=== PATIENT | female | born 1955 | race Caucasian/White ===

== ENCOUNTER 2018-02-04 12:13 | Inpatient (IN) | payer BC, OTHER ==
--- NOTE | 2018-02-04 14:52 | PDOC ---
History of Present Illness - General Chief Complaint: Wound Stated Complaint: WOUND Time Seen by Provider: 02/04/18 14:10 - History of Present Illness Initial Comments: 02/04/18 14:47 62 F with h/o HTN, HLD, asthma presenting to ED with non-healing R hill wound. Pt states that she has had an ulcer in her R hill for several months. She has completed multiple rounds of PO abx but never with resolution of her wound. Pt recently had wound culture that grew MRSA, and pt was instructed to come to ER for IV abx. Pt denies any F/C. Reports only mild pain at ulcer site. Past History - Past Medical History Allergies/Adverse Reactions: Allergies Allergy/AdvReac Type Severity Reaction Status Date / Time codeine [Codeine] Allergy Unknown Verified 02/04/18 12:17 latex [Latex] Allergy Unknown Verified 02/04/18 12:17 silver sulfadiazine Allergy Unknown Verified 02/04/18 12:17 [From Silvadene] Sulfa (Sulfonamide Allergy Unknown Verified 02/04/18 12:17 Antibiotics) bacitracin [From Neosporin] Allergy Verified 02/04/18 12:17 bacitracin zinc Allergy Verified 02/04/18 12:17 [From Neosporin] benzalkonium chloride Allergy Verified 02/04/18 12:17 [From Neosporin] gramicidin D [From Neosporin] Allergy Verified 02/04/18 12:17 neomycin sulfate Allergy Verified 02/04/18 12:17 [From Neosporin] piperacillin Allergy Verified 02/04/18 12:17 polymyxin B [From Neosporin] Allergy Verified 02/04/18 12:17 polymyxin B sulfate Allergy Verified 02/04/18 12:17 [From Neosporin] POWDER Allergy Intermediate WHEEZING Uncoded 02/04/18 12:17 TRIDE Allergy Intermediate Uncoded 02/04/18 12:17 CODIENE Allergy Mild Itching Uncoded 02/04/18 12:17 LATEX Allergy Uncoded 02/04/18 12:17 SILVADENE Allergy Uncoded 02/04/18 12:17 SULFA Allergy Uncoded 02/04/18 12:17 FRAGRANCES AdvReac Intermediate WHEEZING Uncoded 02/04/18 12:17 Home Medications: Ambulatory Orders Aspirin [ASA] 81 mg PO DAILY 05/21/12 Docosahexanoic Acid/Epa [Fish Oil Softgel] 1 cap PO DAILY 05/21/12 Vitamin E 1 cap PO DAILY 05/21/12 Vitamin B Complex 1 each PO DAILY 02/04/13 Spironolactone [Aldactone] 25 mg PO DAILY 03/18/13 Cholecalciferol (Vitamin D3) [Vitamin D] 5,000 unit PO DAILY 07/02/13 Hydrocodone Bit/Acetaminophen [Vicodin 5-500mg Tablet -] 1 tab PO Q6H PRN Magnesium Amino Acid Chelate [Magnesium] 100 mg PO DAILY 07/02/13 Docusate Sodium [Colace -] 100 mg PO BID 07/03/13 Famotidine [Pepcid -] 20 mg PO DAILY 07/03/13 Montelukast Na [Singulair -] 10 mg PO HS #0 tablet 07/07/13 Pantoprazole Sodium [Protonix -] 40 mg PO DAILY #0 tablet.ec 07/07/13 Sennosides/Docusate Sodium [Pericolace -] 2 each PO HS #0 tablet 07/07/13 Lipitor 10 mg PO HS 12/17/17 Anemia: No Asthma: Yes Cancer: No Cardiac Disorders: Yes (hx of frequent palpitations) CVA: No COPD: Yes CHF: No Dementia: No Diabetes: No GI Disorders: Yes (IBS) Disorders: No HTN: Yes Hypercholesterolemia: Yes Liver Disease: No Seizures: No Thyroid Disease: No Other medical history: PVD - Surgical History Abdominal Surgery: Yes (HERNIA REPAIR,LAP BAND) Appendectomy: No Cardiac Surgery: No Cholecystectomy: Yes Lung Surgery: No Neurologic Surgery: No Orthopedic Surgery: Yes (RT.TOTAL HIP REPLACEMENT.) - Suicide/Smoking/Psychosocial Hx Smoking Status: Yes Smoking History: Former smoker Have you smoked in the past 12 months: No Number of Cigarettes Smoked Daily: 0 If you are a former smoker, when did you quit?: 1997 Information on smoking cessation initiated: No Hx Alcohol Use: No Drug/Substance Use Hx: No Substance Use Type: None Hx Substance Use Treatment: No Review of Systems - Review of Systems Comments:: 02/04/18 14:49 "GENERAL/CONSTITUTIONAL: No fever or chills. No weakness. HEAD, EYES, EARS, NOSE AND THROAT: No change in vision. No ear pain or discharge. No sore throat. CARDIOVASCULAR: No chest pain or shortness of breath. RESPIRATORY: No cough, wheezing, or hemoptysis. GASTROINTESTINAL: No nausea, vomiting, diarrhea or constipation. GENITOURINARY: No dysuria, frequency, or change in urination. MUSCULOSKELETAL: No joint or muscle swelling or pain. No neck or back pain. SKIN: + ulcer to R hill NEUROLOGIC: No headache, vertigo, loss of consciousness, or change in strength/ sensation. ENDOCRINE: No increased thirst. No abnormal weight change. HEMATOLOGIC/LYMPHATIC: No anemia, easy bleeding, or history of blood clots. ALLERGIC/IMMUNOLOGIC: No hives or skin allergy. *Physical Exam - Vital Signs Last Vital Signs Temp Pulse Resp BP Pulse Ox 97.6 F 96 H 18 159/107 100 02/04/18 12:17 02/04/18 12:17 02/04/18 12:17 02/04/18 12:17 02/04/18 12:17 - Physical Exam Comments: 02/04/18 14:51 "GENERAL: Awake, alert, and fully oriented, in no acute distress. HEAD: No signs of trauma EYES: PERRLA, EOMI, sclera anicteric, conjunctiva clear ENT: Auricles normal inspection, hearing grossly normal, nares patent, oropharynx clear without exudates. Moist mucosa NECK: Nontender, no stepoffs, Normal ROM, supple, no lymphadenopathy, JVD, or masses LUNGS: Breath sounds equal, clear to auscultation bilaterally. No wheezes, and no crackles HEART: Regular rate and rhythm, normal S1 and S2, no murmurs, rubs or gallops ABDOMEN: Soft, nontender, normoactive bowel sounds. No guarding, no rebound. No masses EXTREMITIES: + 2cm ulcer to R hill with serosanguinous drainage, dressing c/d/i , mild erythema NEUROLOGICAL: Cranial nerves II through XII intact. 5/5 strength and sensation in all extremities, Normal speech, normal gait, normal cerebellar function SKIN: Warm, Dry, normal turgor, no rashes or lesions noted. " ED Treatment Course - LABORATORY CBC & Chemistry Diagram: 02/04/18 16:12 02/04/18 16:12 Medical Decision Making - Medical Decision Making 02/04/18 14:52 62 F with non-healing R hill ulcer, now growing MRSA. - Labs, cultures - XR R hill to r/o osteo - Dr. Hernández following - IV abx - Admit 02/04/18 16:[address] Kimbrough. *DC/Admit/Observation/Transfer Diagnosis at time of Disposition: Non-healing ulcer - Discharge Dispostion Decision to Admit order: Yes - Referrals Referrals: Moises Kimbrough MD [Primary Care Provider] - - Patient Instructions - Post Discharge Activity - Attestations Physician Attestion: 02/04/18 16:45 I, Dr. Chan Aly MD, attest that this document has been prepared under my direction and personally reviewed by me in its entirety. I further attest, that it accurately reflects all work, treatment, procedures and medical decision -making performed by me.
[2018-02-04] MEDS ORDERED: VANCOMYCIN 1 GM PREMIX - 1 GM/200 ML BAG IVPB ONE (14:53)
[2018-02-04] MEDS ORDERED: VANCOMYCIN 1 GRAM (PRE-DOCKED) 1,000 MG/250 ML BAG IVPB ONE (16:14)
[2018-02-04 16:25] LABS: BASO % 0.6 % (0-2.0); EOS % 1.1 % (0-4.5); HEMATOCRIT 39.6 % (32.4-45.2); LYMPH % 23.5 % (8-40); MCH 28.2 pg (25.7-33.7); MCHC 32.9 g/dl (32.0-36.0); MEAN CELL VOLUME 85.8 fl (80-96); MEAN PLT VOLUME 8.6 fl (7.5-11.1); MONO % 7.2 % (3.8-10.2); NEUT % 67.6 % (42.8-82.8); PLATELET COUNT 187 K/MM3 (134-434); RBC 4.61 M/mm3 (3.60-5.2); RDW 16.2 % (11.6-15.6); WHITE BLOOD COUNT 5.7 K/mm3 (4.0-10.0)
[2018-02-04 17:01] LABS: ALBUMIN 3.9 g/dl (3.4-5.0); ANION GAP 7 (8-16); BILIRUBIN,TOTAL 0.8 mg/dL (0.2-1.0); BLOOD UREA NITROGEN 13 mg/dL (7-18); CALCIUM 9.3 mg/dL (8.5-10.1); CHLORIDE 107 mmol/L (98-107); CO2 28 mmol/L (21-32); CREATININE 0.7 mg/dL (0.55-1.02); GLUCOSE,RANDOM 89 mg/dL (74-106); SGPT/ALT 26 U/L (12-78); SODIUM 142 mmol/L (136-145)
[2018-02-04 17:03] LABS: ALK PHOS 119 U/L (45-117); POTASSIUM 4.5 mmol/L (3.5-5.1); SGOT/AST 23 U/L (15-37); TOT PROT 7.2 g/dl (6.4-8.2)
--- NOTE | 2018-02-04 17:44 | HP ---
Admitting History and Physical - Admission Chief Complaint: 62 y.o F was sent from [facility] for hospitalisation due to MRSA infected non-healing ulcer of the LE. History of Present Illness: Non-healing ulcer of the right hill. 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 No: AIDS, C-Diff, Herpes Zoster, HIV, STD's, Tuberculosis, VREF, Other Psych: No: Addictions, Anxiety, Bipolar, Depression, Panic, Psychosis, Schizophrenia, Other Musculoskeletal: No: Bursitis, Chronic low back pain, Hemiparesis, Hemiplegia, Osteoarthritis, Paraplegia, Other Rheumatology: No: Fibromyalgia, Gout, Lupus, Rheumatoid Arthritis, Sarcoidosis, Vasculitis, Other Endocrine: No: Kenneth's Disease, Seymour's Disease, Diabetes Insipidus, Diabetes Mellitus, Hyperparathyroidism, Hyperthyroidism, Hypothyroidism, Osteopenia, SIADH, Other - Past Surgical History Additional Past Surgical History: Cholecystectomy - Smoking History Smoking history: Former smoker Have you smoked in the past 12 months: No Aproximately how many cigarettes per day: 0 If you are a former smoker, when did you quit?: 1997 - Alcohol/Substance Use Hx Alcohol Use: No Home Medications - Allergies Allergies/Adverse Reactions: Allergies Allergy/AdvReac Type Severity Reaction Status Date / Time codeine [Codeine] Allergy Unknown Verified 02/04/18 12:17 latex [Latex] Allergy Unknown Verified 02/04/18 12:17 silver sulfadiazine Allergy Unknown Verified 02/04/18 12:17 [From Silvadene] Sulfa (Sulfonamide Allergy Unknown Verified 02/04/18 12:17 Antibiotics) bacitracin [From Neosporin] Allergy Verified 02/04/18 12:17 bacitracin zinc Allergy Verified 02/04/18 12:17 [From Neosporin] benzalkonium chloride Allergy Verified 02/04/18 12:17 [From Neosporin] gramicidin D [From Neosporin] Allergy Verified 02/04/18 12:17 neomycin sulfate Allergy Verified 02/04/18 12:17 [From Neosporin] piperacillin Allergy Verified 02/04/18 12:17 polymyxin B [From Neosporin] Allergy Verified 02/04/18 12:17 polymyxin B sulfate Allergy Verified 02/04/18 12:17 [From Neosporin] POWDER Allergy Intermediate WHEEZING Uncoded 02/04/18 12:17 TRIDE Allergy Intermediate Uncoded 02/04/18 12:17 CODIENE Allergy Mild Itching Uncoded 02/04/18 12:17 LATEX Allergy Uncoded 02/04/18 12:17 SILVADENE Allergy Uncoded 02/04/18 12:17 SULFA Allergy Uncoded 02/04/18 12:17 FRAGRANCES AdvReac Intermediate WHEEZING Uncoded 02/04/18 12:17 - Home Medications Home Medications: Ambulatory Orders Aspirin [ASA] 81 mg PO DAILY 05/21/12 Docosahexanoic Acid/Epa [Fish Oil Softgel] 1 cap PO DAILY 05/21/12 Vitamin E 1 cap PO DAILY 05/21/12 Vitamin B Complex 1 each PO DAILY 02/04/13 Spironolactone [Aldactone] 25 mg PO DAILY 03/18/13 Cholecalciferol (Vitamin D3) [Vitamin D] 5,000 unit PO DAILY 07/02/13 Hydrocodone Bit/Acetaminophen [Vicodin 5-500mg Tablet -] 1 tab PO Q6H PRN Magnesium Amino Acid Chelate [Magnesium] 100 mg PO DAILY 07/02/13 Docusate Sodium [Colace -] 100 mg PO BID 07/03/13 Famotidine [Pepcid -] 20 mg PO DAILY 07/03/13 Montelukast Na [Singulair -] 10 mg PO HS #0 tablet 07/07/13 Pantoprazole Sodium [Protonix -] 40 mg PO DAILY #0 tablet.ec 07/07/13 Sennosides/Docusate Sodium [Pericolace -] 2 each PO HS #0 tablet 07/07/13 Lipitor 10 mg PO HS 12/17/17 Family Disease History - Family Disease History Family History: Unremarkable Review of Systems - Review of Systems Constitutional: denies: Chills, Diaphoresis, Lethargy, Loss of Appetite Eyes: denies: Blind Spots, Blurred Vision, Photophobia HENT: denies: Difficult Swallowing, Ear Discharge, Hearing Loss, Nasal Congestion, Throat Pain, Toothache Neck: denies: Decreased ROM, Lumps, Pain on Movement, Tenderness Cardiovascular: denies: Chest Pain, Edema, Palpitations Respiratory: reports: SOB on Exertion. denies: Exercise Intolerance, Hemoptysis , Orthopnea, SOB, Wheezing Gastrointestinal: reports: Diarrhea. denies: Abdominal Pain, Bloating, Constipation Genitourinary: denies: Burning, Discharge Breasts: denies: Breast Implants, Discharge from Nipple, Lumps, Pain Musculoskeletal: denies: Back Pain, Crepitus, Joint Pain, Joint Swelling, Muscle Pain Integumentary: reports: Wound (Right ankle) Endocrine: reports: No Symptoms Hematology/Lymphatic: reports: No Symptoms Physical Examination Vital Signs: Vital Signs Temperature 97.6 F 02/04/18 12:17 Pulse Rate 96 H 02/04/18 12:17 Respiratory Rate 18 02/04/18 12:17 Blood Pressure 159/107 02/04/18 12:17 O2 Sat by Pulse Oximetry (%) 100 02/04/18 12:17 Constitutional: Yes: Well Nourished, No Distress, Anxious, Obese. No: Ashen, Diaphoresis, Mild Distress, Moderate Distress Eyes: Yes: Conjunctiva Clear, EOM Intact HENT: Yes: Atraumatic, Normocephalic. No: Rhinnorhea, Thrush Neck: Yes: Supple, Trachea Midline. No: Decreased ROM, Lymphadenopathy Cardiovascular: Yes: Regular Rate and Rhythm, S1, S2. No: Bradycardia, Tachycardia Respiratory: Yes: Regular, CTA Bilaterally. No: Poor Air Entry, Rales, SOB, Tachypnea, Wheezes Gastrointestinal: Yes: Normal Bowel Sounds, Soft, Abdomen, Obese. No: Ascites, Palpable Mass, Tenderness, Tenderness, Epigastrium, Vomiting ...Rectal Exam: Yes: Deferred Renal/: No: Anuria, Bladder Distention, CVA Tenderness - Left, CVA Tenderness - Right Breast(s): Yes: WNL Musculoskeletal: Yes: WNL. No: Back Pain, Joint Stiffness Extremities: No: Amputation, Calf Tenderness, Cold, Cyanosis, Shortened Edema: No Wound/Incision: Yes: Other (non-healing ulcer right ankle) Neurological: Yes: Alert, Oriented. No: Aphasia, Confusion Labs: CBC, BMP 02/04/18 16:12 02/04/18 16:12 Problem List - Problems (1) Venous stasis ulcer Assessment/Plan: IV Vanco as per Dr Manriquez. ID F/u Local wound care Code(s): I83.009 - VARICOSE VEINS OF UNSP LOWER EXTREMITY W ULCER OF UNSP SITE; L97.909 - NON-PRS CHRONIC ULC UNSP PRT OF UNSP LOW LEG W UNSP SEVERITY Qualifiers: Venous stasis ulcer site: ankle Laterality: right Non-pressure ulcer stage: with fat layer exposed (2) Venous insufficiency (chronic) (peripheral) Assessment/Plan: Dr Alvarenga f/u Code(s): I87.2 - VENOUS INSUFFICIENCY (CHRONIC) (PERIPHERAL) (3) Diarrhea Assessment/Plan: Stool for c.diff, o&P, Guaiac GI consult Zantac PO Code(s): R19.7 - DIARRHEA, UNSPECIFIED (4) CHF (congestive heart failure), NYHA class II Assessment/Plan: continue Spironolactone, Torsemide, KDUR Code(s): I50.9 - HEART FAILURE, UNSPECIFIED Qualifiers: Congestive heart failure type: diastolic
--- NOTE | 2018-02-04 20:42 | CON.ID ---
Consult Consult Specialty:: infectious diseases Reason for Consultation:: non healing wound of the leg rt - History of Present Illness Chief Complaint: non healing wound plus draiange History of Present Illness: 62 F with h/o HTN, HLD, asthma with non-healing R hill wound. Pt states that she has had an ulcer in her R hill for several months. She has completed multiple rounds of PO abx but never with resolution of her wound. 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 No: AIDS, C-Diff, Herpes Zoster, HIV, STD's, Tuberculosis, VREF, Other Psych: No: Addictions, Anxiety, Bipolar, Depression, Panic, Psychosis, Schizophrenia, Other Musculoskeletal: No: Bursitis, Chronic low back pain, Hemiparesis, Hemiplegia, Osteoarthritis, Paraplegia, Other Rheumatology: No: Fibromyalgia, Gout, Lupus, Rheumatoid Arthritis, Sarcoidosis, Vasculitis, Other Endocrine: No: [place]'s Disease, Seymour's Disease, Diabetes Insipidus, Diabetes Mellitus, Hyperparathyroidism, Hyperthyroidism, Hypothyroidism, Osteopenia, SIADH, Other - Alcohol/Substance Use Hx Alcohol Use: No - Smoking History Smoking history: Former smoker Have you smoked in the past 12 months: No Aproximately how many cigarettes per day: 0 If you are a former smoker, when did you quit?: 1997 Home Medications - Allergies Allergies/Adverse Reactions: Allergies Allergy/AdvReac Type Severity Reaction Status Date / Time codeine [Codeine] Allergy Unknown Verified 02/04/18 12:17 latex [Latex] Allergy Unknown Verified 02/04/18 12:17 silver sulfadiazine Allergy Unknown Verified 02/04/18 12:17 [From Silvadene] Sulfa (Sulfonamide Allergy Unknown Verified 02/04/18 12:17 Antibiotics) bacitracin [From Neosporin] Allergy Verified 02/04/18 12:17 bacitracin zinc Allergy Verified 02/04/18 12:17 [From Neosporin] benzalkonium chloride Allergy Verified 02/04/18 12:17 [From Neosporin] gramicidin D [From Neosporin] Allergy Verified 02/04/18 12:17 neomycin sulfate Allergy Verified 02/04/18 12:17 [From Neosporin] piperacillin Allergy Verified 02/04/18 12:17 polymyxin B [From Neosporin] Allergy Verified 02/04/18 12:17 polymyxin B sulfate Allergy Verified 02/04/18 12:17 [From Neosporin] POWDER Allergy Intermediate WHEEZING Uncoded 02/04/18 12:17 TRIDE Allergy Intermediate Uncoded 02/04/18 12:17 CODIENE Allergy Mild Itching Uncoded 02/04/18 12:17 LATEX Allergy Uncoded 02/04/18 12:17 SILVADENE Allergy Uncoded 02/04/18 12:17 SULFA Allergy Uncoded 02/04/18 12:17 FRAGRANCES AdvReac Intermediate WHEEZING Uncoded 02/04/18 12:17 - Home Medications Home Medications: Ambulatory Orders Aspirin [ASA] 81 mg PO DAILY 05/21/12 Docosahexanoic Acid/Epa [Fish Oil Softgel] 1 cap PO DAILY 05/21/12 Vitamin E 1 cap PO DAILY 05/21/12 Vitamin B Complex 1 each PO DAILY 02/04/13 Spironolactone [Aldactone] 25 mg PO DAILY 03/18/13 Cholecalciferol (Vitamin D3) [Vitamin D] 5,000 unit PO DAILY 07/02/13 Hydrocodone Bit/Acetaminophen [Vicodin 5-500mg Tablet -] 1 tab PO Q6H PRN Magnesium Amino Acid Chelate [Magnesium] 100 mg PO DAILY 07/02/13 Docusate Sodium [Colace -] 100 mg PO BID 07/03/13 Famotidine [Pepcid -] 20 mg PO DAILY 07/03/13 Montelukast Na [Singulair -] 10 mg PO HS #0 tablet 07/07/13 Pantoprazole Sodium [Protonix -] 40 mg PO DAILY #0 tablet.ec 07/07/13 Sennosides/Docusate Sodium [Pericolace -] 2 each PO HS #0 tablet 07/07/13 Lipitor 10 mg PO HS 12/17/17 Review of Systems - Review of Systems Constitutional: reports: No Symptoms Eyes: reports: No Symptoms HENT: reports: No Symptoms Neck: reports: No Symptoms Cardiovascular: reports: No Symptoms Respiratory: reports: No Symptoms Gastrointestinal: reports: No Symptoms Genitourinary: reports: No Symptoms Musculoskeletal: reports: Other Integumentary: reports: Erythema, Wound Neurological: reports: No Symptoms Endocrine: reports: No Symptoms Hematology/Lymphatic: reports: No Symptoms Psychiatric: reports: No Symptoms Physical Exam Vital Signs: Vital Signs Temperature 97.5 F L 02/04/18 16:45 Pulse Rate 82 02/04/18 16:45 Respiratory Rate 18 02/04/18 16:45 Blood Pressure 138/72 02/04/18 16:45 O2 Sat by Pulse Oximetry (%) 100 02/04/18 12:17 Constitutional: Yes: Well Nourished, Obese Eyes: Yes: Conjunctiva Clear HENT: Yes: Atraumatic Neck: Yes: Supple, Trachea Midline Cardiovascular: Yes: Regular Rate and Rhythm Respiratory: Yes: Regular, CTA Bilaterally Gastrointestinal: Yes: Normal Bowel Sounds, Soft Musculoskeletal: Yes: WNL Extremities: Yes: Erythema (rt hill), Other Integumentary: Yes: Other (ulcer on the rt hill) Wound/Incision: Yes: Dressing Removed, Other (wound looked at) Neurological: Yes: Alert, Oriented Psychiatric: Yes: Alert, Oriented Labs: CBC, BMP 02/04/18 16:12 02/04/18 16:12 Imaging - Results X-ray: Report Reviewed, Image Reviewed Ultrasound: Report Reviewed, Image Reviewed Assessment/Plan Problem List - Problems (1) Venous stasis ulcer Code(s): I83.009 - VARICOSE VEINS OF UNSP LOWER EXTREMITY W ULCER OF UNSP SITE; L97.909 - NON-PRS CHRONIC ULC UNSP PRT OF UNSP LOW LEG W UNSP SEVERITY Qualifiers: Venous stasis ulcer site: ankle Laterality: right Non-pressure ulcer stage: with fat layer exposed (2) Venous insufficiency (chronic) (peripheral) Code(s): I87.2 - VENOUS INSUFFICIENCY (CHRONIC) (PERIPHERAL) (3) Diarrhea Code(s): R19.7 - DIARRHEA, UNSPECIFIED (4) CHF (congestive heart failure), NYHA class II Code(s): I50.9 - HEART FAILURE, UNSPECIFIED Qualifiers: Congestive heart failure type: diastolic plan will start patient on vanco work up dirrhoea rest continue current mgmt and primary team
[2018-02-04] MEDS ORDERED: MONTELUKAST NA 10 MG TABLET ONE (21:17)
[2018-02-04] MEDS: ATORVASTATIN CA 10 MG TABLET (FP) PO SCH (21:27)
[2018-02-04] MEDS: MONTELUKAST NA 10 MG TABLET PO SCH (21:28)
[2018-02-04] MEDS: RANITIDINE HCL 150 MG TABLET (FP) PO SCH (21:28)
[2018-02-05 06:22] LABS: BASO % 0.4 % (0-2.0); EOS % 2.1 % (0-4.5); HEMATOCRIT 33.6 % (32.4-45.2); HEMOGLOBIN 11.6 GM/dL (10.7-15.3); LYMPH % 34.3 % (8-40); MCH 29.4 pg (25.7-33.7); MCHC 34.5 g/dl (32.0-36.0); MEAN CELL VOLUME 85.1 fl (80-96); MEAN PLT VOLUME 8.2 fl (7.5-11.1); MONO % 8.8 % (3.8-10.2); NEUT % 54.4 % (42.8-82.8); PLATELET COUNT 132 K/MM3 (134-434); RBC 3.94 M/mm3 (3.60-5.2); RDW 15.6 % (11.6-15.6); WHITE BLOOD COUNT 4.6 K/mm3 (4.0-10.0)
[2018-02-05 06:45] LABS: ALBUMIN 3.1 g/dl (3.4-5.0); ANION GAP 6 (8-16); BLOOD UREA NITROGEN 13 mg/dL (7-18); CALCIUM 8.5 mg/dL (8.5-10.1); CHLORIDE 108 mmol/L (98-107); CHOLESTEROL 129 mg/dL (50-200); CO2 28 mmol/L (21-32); CREATININE 0.6 mg/dL (0.55-1.02); GLUCOSE,RANDOM 94 mg/dL (74-106); PHOSPHOROUS 4.3 mg/dL (2.5-4.9); POTASSIUM 4.1 mmol/L (3.5-5.1); SGOT/AST 13 U/L (15-37); SGPT/ALT 19 U/L (12-78); SODIUM 142 mmol/L (136-145); TOT PROT 5.7 g/dl (6.4-8.2); TRIGLYCERIDES 123 mg/dL (35-160)
[2018-02-05 06:46] LABS: ALK PHOS 92 U/L (45-117); BILIRUBIN,TOTAL 0.7 mg/dL (0.2-1.0); HDL CHOLESTEROL 48 mg/dL (40-60)
[2018-02-05] MEDS ORDERED: PT OWN MED DRAWER 7, Y5N ONE ×2 (09:16→11:11)
[2018-02-05] MEDS: POTASSIUM CHLORIDE TABS 10 MEQ TABLET.ER (FP) PO SCH (09:27)
[2018-02-05] MEDS: CHOLECALCIFEROL (VITAMIN D3) 1,000 UNIT TABLET (FP) PO SCH (09:27)
[2018-02-05] MEDS: ASPIRIN 81 MG CHEWABLE TABLETS PO SCH (09:27)
[2018-02-05] MEDS: RANITIDINE HCL 150 MG TABLET (FP) PO SCH ×2 (09:28→21:26)
[2018-02-05] MEDS: SPIRONOLACTONE 25 MG TABLET (FP) PO SCH (09:28)
[2018-02-05] MEDS: LORATADINE 10 MG TABLET PO SCH (09:32)
[2018-02-05] MEDS ORDERED: PANTOPRAZOLE 40 MG TABLET (FP) PO SCH (10:00)
[2018-02-05] MEDS: TORSEMIDE 10 MG TABLET PO SCH (12:48)
--- NOTE | 2018-02-05 13:25 | PN ---
Progress Note, Physician Chief Complaint: C/o constipation History of Present Illness: Non-healing ulcer of the right hill. HTN HFpEP HLD Asthma Intermittent diarrhea with guaiac positive stool Allergic rhinitis Obesity - Current Medication List Current Medications: Active Medications Aspirin (Asa -) 81 mg PO DAILY [facility] Last Admin: 02/05/18 09:27 Dose: 81 mg Atorvastatin Calcium (Lipitor -) 10 mg PO HS [facility] Last Admin: 02/04/18 21:27 Dose: Not Given Cholecalciferol (Vitamin D3 -) 5,000 unit PO DAILY [facility] Last Admin: 02/05/18 09:27 Dose: 5,000 unit Loratadine (Claritin -) 10 mg PO DAILY [facility] Last Admin: 02/05/18 09:32 Dose: 10 mg Montelukast Sodium (Singulair -) 10 mg PO HS [facility] Last Admin: 02/04/18 21:28 Dose: Not Given Potassium Chloride (K-Dur -) 10 meq PO DAILY [facility] Last Admin: 02/05/18 09:27 Dose: 10 meq Ranitidine HCl (Zantac -) 150 mg PO BID [facility] Last Admin: 02/05/18 09:28 Dose: 150 mg Spironolactone (Aldactone -) 25 mg PO DAILY [facility] Last Admin: 02/05/18 09:28 Dose: 25 mg Torsemide (Demadex -) 10 mg PO DAILY [facility] Last Admin: 02/05/18 12:48 Dose: 10 mg - Objective Vital Signs: Vital Signs Temperature 97.6 F 02/05/18 10:00 Pulse Rate 63 02/05/18 10:00 Respiratory Rate 18 02/05/18 10:00 Blood Pressure 143/76 02/05/18 10:00 O2 Sat by Pulse Oximetry (%) 99 02/05/18 09:00 Constitutional: Yes: No Distress, Calm Eyes: Yes: Conjunctiva Clear, EOM Intact HENT: Yes: Atraumatic, Normocephalic Neck: Yes: Supple, Trachea Midline Cardiovascular: Yes: Regular Rate and Rhythm, S1, S2. No: Bradycardia, Tachycardia, Bruit, JVD, Murmur Respiratory: Yes: Regular, CTA Bilaterally. No: Cough Gastrointestinal: Yes: Normal Bowel Sounds, Soft, Abdomen, Obese. No: Ascites ...Rectal Exam: Yes: Deferred Genitourinary: No: Anuria, Bladder Distention Breast(s): Yes: WNL Musculoskeletal: No: Back Pain Extremities: No: Calf Tenderness Edema: LLE: 1+, RLE: 1+ Labs: CBC, BMP 02/05/18 05:45 02/05/18 05:45 Problem List - Problems (1) Venous stasis ulcer Assessment/Plan: MARTIN Wong as per Dr Manriquez. ID F/u Local wound care Code(s): I83.009 - VARICOSE VEINS OF UNSP LOWER EXTREMITY W ULCER OF UNSP SITE; L97.909 - NON-PRS CHRONIC ULC UNSP PRT OF UNSP LOW LEG W UNSP SEVERITY Qualifiers: Venous stasis ulcer site: ankle Laterality: right Non-pressure ulcer stage: with fat layer exposed (2) Venous insufficiency (chronic) (peripheral) Assessment/Plan: Dr Alvarenga f/u Code(s): I87.2 - VENOUS INSUFFICIENCY (CHRONIC) (PERIPHERAL) (3) CHF (congestive heart failure), NYHA class II Assessment/Plan: continue Spironolactone, Torsemide, KDUR Code(s): I50.9 - HEART FAILURE, UNSPECIFIED Qualifiers: Congestive heart failure type: diastolic
--- NOTE | 2018-02-05 13:36 | PN ---
Progress Note, Physician History of Present Illness: patient will be seen by gastro she has history in family of gi cancer no complaints from the wound point of view dirrhoea with occult blood positive - Current Medication List Current Medications: Active Medications Aspirin (Asa -) 81 mg PO DAILY [facility] Last Admin: 02/05/18 09:27 Dose: 81 mg Atorvastatin Calcium (Lipitor -) 10 mg PO HS [facility] Last Admin: 02/04/18 21:27 Dose: Not Given Cholecalciferol (Vitamin D3 -) 5,000 unit PO DAILY [facility] Last Admin: 02/05/18 09:27 Dose: 5,000 unit Docusate Sodium (Colace -) 100 mg PO BID [facility] Vancomycin HCl 1,500 mg/ (Dextrose) 250 mls @ 250 mls/hr IVPB Q24H [facility] PRN Reason: Protocol Loratadine (Claritin -) 10 mg PO DAILY [facility] Last Admin: 02/05/18 09:32 Dose: 10 mg Montelukast Sodium (Singulair -) 10 mg PO [facility] Last Admin: 02/04/18 21:28 Dose: Not Given Polyethylene Glycol (Miralax (For Daily Use) -) 17 gm PO DAILY [facility] Potassium Chloride (K-Dur -) 10 meq PO DAILY [facility] Last Admin: 02/05/18 09:27 Dose: 10 meq Ranitidine HCl (Zantac -) 150 mg PO BID [facility] Last Admin: 02/05/18 09:28 Dose: 150 mg Senna/Docusate Sodium (Pericolace -) 2 tablet PO [facility] Spironolactone (Aldactone -) 25 mg PO DAILY [facility] Last Admin: 02/05/18 09:28 Dose: 25 mg Torsemide (Demadex -) 10 mg PO DAILY [facility] Last Admin: 02/05/18 12:48 Dose: 10 mg - Objective Vital Signs: Vital Signs Temperature 97.6 F 02/05/18 10:00 Pulse Rate 63 02/05/18 10:00 Respiratory Rate 18 02/05/18 10:00 Blood Pressure 143/76 02/05/18 10:00 O2 Sat by Pulse Oximetry (%) 99 02/05/18 09:00 Constitutional: Yes: No Distress, Calm, Obese Cardiovascular: Yes: Regular Rate and Rhythm Respiratory: Yes: Regular, CTA Bilaterally Gastrointestinal: Yes: Normal Bowel Sounds, Soft, Other (dirrhoea) Musculoskeletal: Yes: WNL Extremities: Yes: Other Edema: LLE: 1+, RLE: 1+ Wound/Incision: Yes: Dressing Dry and Intact Neurological: Yes: Alert, Oriented Psychiatric: Yes: Alert, Oriented Labs: CBC, BMP 02/05/18 05:45 02/05/18 05:45 Assessment/Plan Problem List - Problems (1) Venous stasis ulcer Code(s): I83.009 - VARICOSE VEINS OF UNSP LOWER EXTREMITY W ULCER OF UNSP SITE; L97.909 - NON-PRS CHRONIC ULC UNSP PRT OF UNSP LOW LEG W UNSP SEVERITY Qualifiers: Venous stasis ulcer site: ankle Laterality: right Non-pressure ulcer stage: with fat layer exposed (2) Venous insufficiency (chronic) (peripheral) Code(s): I87.2 - VENOUS INSUFFICIENCY (CHRONIC) (PERIPHERAL) (3) Diarrhea Code(s): R19.7 - DIARRHEA, UNSPECIFIED (4) CHF (congestive heart failure), NYHA class II Code(s): I50.9 - HEART FAILURE, UNSPECIFIED Qualifiers: Congestive heart failure type: diastolic plan continue vanco await for gi to see the patient rest continue current mgmt dressing intact
[2018-02-05] MEDS: POLYETHYLENE GLYCOL 3350 119 GM BTL PO SCH (13:49)
[2018-02-05] MEDS: VANCOMYCIN 1,500 MG in DEXTROSE 5%-WATER - 500 ML IVPB SCH (14:45)
--- NOTE | 2018-02-05 17:59 | CON.GI ---
Consult Consult Specialty:: Gastroenterology Referred by:: Dr Kimbrough Reason for Consultation:: Diarrhea - History of Present Illness Chief Complaint: Abdominal gas with episodes of urgent diarrhea History of Present Illness: 62F is admitted for management of RLE MRSA. I am called to evaluate diarrhea. She reports that her bowel habits are such that she alternates between diarrhea and constipation chronically. She had hard fecaliths alternating with liquidy stool and always feels as though she is not emptying adequately. On diarrhea day she can have up to 5 BMs in a day. She denies any rectal bleeding or narrowed stools. She denies abdominal pain. She suffers with gaseous distension and acid reflux but denies vomiting. She has never had an EGD or a colonoscopy. Her mother of colon cancer. She also had bladder cancer. Zenaida had a lap band placed in 02/02 when she weighed 312 lbs. She also had a hiatal hernia repair at that time. She initially lost over 80 lbs but has regained most of it. 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 Cardio/Vascular: Yes: CHF (diastplic), HTN, Hyperlipdemia Pulmonary: Yes: Asthma, Sleep Apnea Gastrointestinal: Yes: Constipation, GERD, Other (Diarrhea) Hepatobiliary: Yes: Cholelithiasis (s/p GB surgery), Other (had liver biopsy during cholecystectomy at [facility] but not aware of result) Reproductive: Yes: Postmenopausal Infectious Disease: Yes: MRSA Musculoskeletal: Yes: Osteoarthritis, Other (left botello's cyst) Endocrine: Yes: Other (morbid obesity) - Past Surgical History Past Surgical History: Yes: Cholecystectomy (open with liver bx at [facility]), Hernia Repair (hiatal hernia repaired with gastric band), Joint Replacement (right THR) , Tonsillectomy, Tubal Ligation Additional Surgical History: LLE wound grafting - Alcohol/Substance Use Hx Alcohol Use: No History of Substance Use: reports: None - Smoking History Smoking history: Former smoker Have you smoked in the past 12 months: No Aproximately how many cigarettes per day: 0 If you are a former smoker, when did you quit?: 1997 - Social History Usual Living Arrangement: With Spouse ADL: Family Assistance 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 Place of : [facility] History of Recent Travel: No Home Medications - Allergies Allergies/Adverse Reactions: Allergies Allergy/AdvReac Type Severity Reaction Status Date / Time codeine [Codeine] Allergy Unknown Verified 02/04/18 12:17 latex [Latex] Allergy Unknown Verified 02/04/18 12:17 silver sulfadiazine Allergy Unknown Verified 02/04/18 12:17 [From Silvadene] Sulfa (Sulfonamide Allergy Unknown Verified 02/04/18 12:17 Antibiotics) bacitracin [From Neosporin] Allergy Verified 02/04/18 12:17 bacitracin zinc Allergy Verified 02/04/18 12:17 [From Neosporin] benzalkonium chloride Allergy Verified 02/04/18 12:17 [From Neosporin] gramicidin D [From Neosporin] Allergy Verified 02/04/18 12:17 neomycin sulfate Allergy Verified 02/04/18 12:17 [From Neosporin] piperacillin Allergy Verified 02/04/18 12:17 polymyxin B [From Neosporin] Allergy Verified 02/04/18 12:17 polymyxin B sulfate Allergy Verified 02/04/18 12:17 [From Neosporin] POWDER Allergy Intermediate WHEEZING Uncoded 02/04/18 12:17 TRIDE Allergy Intermediate Uncoded 02/04/18 12:17 CODIENE Allergy Mild Itching Uncoded 02/04/18 12:17 LATEX Allergy Uncoded 02/04/18 12:17 SILVADENE Allergy Uncoded 02/04/18 12:17 SULFA Allergy Uncoded 02/04/18 12:17 FRAGRANCES AdvReac Intermediate WHEEZING Uncoded 02/04/18 12:17 - Home Medications Home Medications: Ambulatory Orders Aspirin [ASA] 81 mg PO DAILY 05/21/12 Docosahexanoic Acid/Epa [Fish Oil Softgel] 1 cap PO DAILY 05/21/12 Vitamin E 1 cap PO DAILY 05/21/12 Vitamin B Complex 1 each PO DAILY 02/04/13 Spironolactone [Aldactone] 25 mg PO DAILY 03/18/13 Cholecalciferol (Vitamin D3) [Vitamin D] 5,000 unit PO DAILY 07/02/13 Hydrocodone Bit/Acetaminophen [Vicodin 5-500mg Tablet -] 1 tab PO Q6H PRN Magnesium Amino Acid Chelate [Magnesium] 100 mg PO DAILY 07/02/13 Docusate Sodium [Colace -] 100 mg PO BID 07/03/13 Famotidine [Pepcid -] 20 mg PO DAILY 07/03/13 Montelukast Na [Singulair -] 10 mg PO HS #0 tablet 07/07/13 Pantoprazole Sodium [Protonix -] 40 mg PO DAILY #0 tablet.ec 07/07/13 Sennosides/Docusate Sodium [Pericolace -] 2 each PO HS #0 tablet 07/07/13 Lipitor 10 mg PO HS 12/17/17 Family Disease History - Family Disease History Family Disease History: Diabetes: Father ( 79 dibetic complications), Mother (colon and bladder cancer), Heart Disease: Father, CA: Mother, Other: Sister (sarcoidosis) Review of Systems - Review of Systems Constitutional: reports: Lethargy, Malaise, Weakness Eyes: reports: No Symptoms HENT: reports: No Symptoms Neck: reports: No Symptoms Cardiovascular: reports: Palpitations, Shortness of Breath Respiratory: reports: Exercise Intolerance, SOB on Exertion Gastrointestinal: reports: Constipation, Diarrhea, Other (heartburn) Musculoskeletal: reports: Back Pain, Extremity Pain, Joint Pain Integumentary: reports: Wound (LLE) Physical Exam-GI Vital Signs: Vital Signs Temperature 98.4 F 02/05/18 14:06 Pulse Rate 65 02/05/18 14:06 Respiratory Rate 16 02/05/18 14:06 Blood Pressure 137/59 02/05/18 14:06 O2 Sat by Pulse Oximetry (%) 99 02/05/18 09:00 CBC,CMP WBC 4.6 K/mm3 (4.0-10.0) 02/05/18 05:45 RBC 3.94 M/mm3 (3.60-5.2) 02/05/18 05:45 Hgb 11.6 GM/dL (10.7-15.3) D 02/05/18 05:45 Hct 33.6 % (32.4-45.2) D 02/05/18 05:45 MCV 85.1 fl (80-96) 02/05/18 05:45 MCH 29.4 pg (25.7-33.7) 02/05/18 05:45 MCHC 34.5 g/dl (32.0-36.0) 02/05/18 05:45 RDW 15.6 % (11.6-15.6) 02/05/18 05:45 Plt Count 132 K/MM3 (134-434) L D 02/05/18 05:45 MPV 8.2 fl (7.5-11.1) 02/05/18 05:45 Neutrophils % 54.4 % (42.8-82.8) 02/05/18 05:45 Lymphocytes % 34.3 % (8-40) D 02/05/18 05:45 Monocytes % 8.8 % (3.8-10.2) 02/05/18 05:45 Eosinophils % 2.1 % (0-4.5) D 02/05/18 05:45 Basophils % 0.4 % (0-2.0) 02/05/18 05:45 Sodium 142 mmol/L (136-145) 02/05/18 05:45 Potassium 4.1 mmol/L (3.5-5.1) 02/05/18 05:45 Chloride 108 mmol/L (98-107) H 02/05/18 05:45 Carbon Dioxide 28 mmol/L (21-32) 02/05/18 05:45 Anion Gap 6 (8-16) L 02/05/18 05:45 BUN 13 mg/dL (7-18) 02/05/18 05:45 Creatinine 0.6 mg/dL (0.55-1.02) 02/05/18 05:45 Creat Clearance w eGFR > 60 (>60) 02/05/18 05:45 Random Glucose 94 mg/dL (74-106) 02/05/18 05:45 Calcium 8.5 mg/dL (8.5-10.1) 02/05/18 05:45 Phosphorus 4.3 mg/dL (2.5-4.9) 02/05/18 05:45 Magnesium 2.0 mg/dL (1.8-2.4) 02/05/18 05:45 Total Bilirubin 0.7 mg/dL (0.2-1.0) 02/05/18 05:45 AST 13 U/L (15-37) L 02/05/18 05:45 ALT 19 U/L (12-78) 02/05/18 05:45 Alkaline Phosphatase 92 U/L (45-117) 02/05/18 05:45 Total Protein 5.7 g/dl (6.4-8.2) L 02/05/18 05:45 Albumin 3.1 g/dl (3.4-5.0) L 02/05/18 05:45 Triglycerides 123 mg/dL (35-160) 02/05/18 05:45 Cholesterol 129 mg/dL (50-200) 02/05/18 05:45 Total LDL Cholesterol 65 mg/dL (5-100) 02/05/18 05:45 HDL Cholesterol 48 mg/dL (40-60) 02/05/18 05:45 Current Medications Generic Name Dose Route Start Last Admin Trade Name Freq PRN Reason Stop Dose Admin Aspirin 81 mg 02/05/18 10:00 02/05/18 09:27 Asa - PO 81 mg DAILY [facility] Administration Atorvastatin Calcium 10 mg 02/04/18 22:00 02/04/18 21:27 Lipitor - PO Not Given HS [facility] Cholecalciferol 5,000 unit 02/05/18 10:00 02/05/18 09:27 Vitamin D3 - PO 5,000 unit DAILY [facility] Administration Docusate Sodium 100 mg 02/05/18 22:00 Colace - PO BID [facility] Vancomycin HCl 1,500 mg/ 500 mls @ 250 mls/hr 02/05/18 13:30 02/05/18 14:45 Dextrose IVPB 250 mls/hr Q24H [facility] Administration Protocol Loratadine 10 mg 02/05/18 10:00 02/05/18 09:32 Claritin - PO 10 mg DAILY [facility] Administration Montelukast Sodium 10 mg 02/04/18 22:00 02/04/18 21:28 Singulair - PO Not Given HS [facility] Polyethylene Glycol 17 gm 02/05/18 13:30 02/05/18 13:49 Miralax (For Daily Use) - PO 17 gm DAILY [facility] Administration Potassium Chloride 10 meq 02/05/18 10:00 02/05/18 09:27 K-Dur - PO 10 meq DAILY [facility] Administration Ranitidine HCl 150 mg 02/04/18 22:00 02/05/18 09:28 Zantac - PO 150 mg BID [facility] Administration Senna/Docusate Sodium 2 tablet 02/05/18 22:00 Pericolace - PO HS [facility] Spironolactone 25 mg 02/05/18 10:00 02/05/18 09:28 Aldactone - PO 25 mg DAILY [facility] Administration Torsemide 10 mg 02/05/18 10:00 02/05/18 12:48 Demadex - PO 10 mg DAILY [facility] Administration Constitutional: Yes: Calm, Obese Eyes: Yes: Conjunctiva Clear HENT: Yes: Atraumatic Neck: Yes: Supple Cardiovascular: Yes: Regular Rate and Rhythm Respiratory: Yes: CTA Bilaterally Gastrointestinal Inspection: Yes: Scars (healed oblique RUQ, vertical short subumbilical and laparoscopic incisions) ...Auscultate: Yes: Normoactive Bowel Sounds ...Palpate: Yes: Soft, Other (nontender) ...Rectal Exam: Yes: Guaiac Positive (semisolid brown guaiac positive stool), Hemorrhoids/External Edema: Yes Edema: LLE: 2+ (bandaged ulcer), RLE: 2+ Neurological: Yes: Alert, Oriented Labs: CBC, BMP 02/05/18 05:45 02/05/18 05:45 Laboratory Tests 02/04/18 02/05/18 02/05/18 16:12 05:45 05:45 Hgb 13.0 D 11.6 D MCV 85.1 Plt Count 132 L D Albumin 3.1 L Problem List - Problems (1) Constipation by delayed colonic transit Assessment/Plan: I believe that Zenaida's main problem is constipation leading to fecal impaction an paradoxical diarrhea, I doubt that she has an infectious or ischemic colitis or IBD. The retained stool is causing her gas pain. Given her FH of colon cancer a partially obstructing colon cancer needs to be excluded. Given her occult bleeding and relative anemia for an asthmatic panendoscopy has been advised. I have discussed the cardiopulmonary risks of endoscopy associated with sleep apnea and obesity as well as the risks of perforation and hemorrhage that could lead for the need for surgery or blood transfusions. She has given an informed consent. She will need a 2 days prep which I will initiate. She is scheduled for an EGD and a colonoscopy on 02/08.Her bleeding may prove to be due to a stress gastritis, a lap band ulcer, GERD and AVMs among other possibilities. Code(s): K59.01 - SLOW TRANSIT CONSTIPATION (2) Family history of colon cancer in mother Code(s): Z80.0 - FAMILY HISTORY OF MALIGNANT NEOPLASM OF DIGESTIVE ORGANS (3) Occult GI bleeding Code(s): R19.5 - OTHER FECAL ABNORMALITIES (4) Anemia Code(s): D64.9 - ANEMIA, UNSPECIFIED
[2018-02-05] MEDS: SENNOSIDES/DOCUSATE COMBO (SENNA PLUS) TABLET (UD) PO SCH (21:26)
[2018-02-05] MEDS: ATORVASTATIN CA 10 MG TABLET (FP) PO SCH (21:26)
[2018-02-05] MEDS: MONTELUKAST NA 10 MG TABLET PO SCH (21:26)
[2018-02-05] MEDS ORDERED: DOCUSATE SODIUM 100 MG CAPSULE (FP) PO SCH (22:00)
[2018-02-06 06:36] LABS: INR 1.01 (0.82-1.09); PROTHROMBIN TIME (PATIENT) 11.4 SEC (9.7-13.0)
--- NOTE | 2018-02-06 07:49 | PN ---
Progress Note, Physician Chief Complaint: Dr Virk consult appreciated. Colonoscopy is scheduled for Sunday. Receiving Vanco IV History of Present Illness: Non-healing ulcer of the right hill. HTN HFpEP HLD Asthma Intermittent diarrhea with guaiac positive stool Allergic rhinitis Obesity, s/p Lap band PSH BTL Opnen elsy umbilical hernia repair Lap band bariatric surgery - Current Medication List Current Medications: Active Medications Aspirin (Asa -) 81 mg PO DAILY [facility] Last Admin: 02/05/18 09:27 Dose: 81 mg Atorvastatin Calcium (Lipitor -) 10 mg PO HS [facility] Last Admin: 02/05/18 21:26 Dose: 10 mg Bisacodyl (Dulcolax -) 20 mg PO DAILY [facility] Stop: 02/07/18 10:01 Cholecalciferol (Vitamin D3 -) 5,000 unit PO DAILY [facility] Last Admin: 02/05/18 09:27 Dose: 5,000 unit Vancomycin HCl 1,500 mg/ (Dextrose) 500 mls @ 250 mls/hr IVPB Q24H [facility] PRN Reason: Protocol Last Admin: 02/05/18 14:45 Dose: 250 mls/hr Loratadine (Claritin -) 10 mg PO DAILY [facility] Last Admin: 02/05/18 09:32 Dose: 10 mg Montelukast Sodium (Singulair -) 10 mg PO HS [facility] Last Admin: 02/05/18 21:26 Dose: 10 mg Polyethylene Glycol (Miralax (For Daily Use) -) 17 gm PO DAILY [facility] Last Admin: 02/05/18 13:49 Dose: 17 gm Potassium Chloride (K-Dur -) 10 meq PO DAILY [facility] Last Admin: 02/05/18 09:27 Dose: 10 meq Ranitidine HCl (Zantac -) 150 mg PO BID [facility] Last Admin: 02/05/18 21:26 Dose: 150 mg Senna/Docusate Sodium (Pericolace -) 2 tablet PO HS [facility] Last Admin: 02/05/18 21:26 Dose: 2 tablet Spironolactone (Aldactone -) 25 mg PO DAILY [facility] Last Admin: 02/05/18 09:28 Dose: 25 mg Torsemide (Demadex -) 10 mg PO DAILY [facility] Last Admin: 02/05/18 12:48 Dose: 10 mg - Objective Vital Signs: Vital Signs Temperature 97.1 F L 02/06/18 07:15 Pulse Rate 64 02/06/18 07:15 Respiratory Rate 18 02/06/18 07:15 Blood Pressure 112/58 02/06/18 07:15 O2 Sat by Pulse Oximetry (%) 99 02/05/18 21:00 Constitutional: Yes: No Distress, Anxious Eyes: Yes: Conjunctiva Clear, EOM Intact HENT: Yes: Atraumatic, Normocephalic. No: Drooling, Epistaxis, Hoarseness Neck: Yes: Supple, Trachea Midline. No: Decreased ROM, Lymphadenopathy Cardiovascular: Yes: Regular Rate and Rhythm, S1, S2. No: Bradycardia, Tachycardia, JVD Respiratory: Yes: Regular, CTA Bilaterally. No: Accessory Muscle Use Gastrointestinal: Yes: Normal Bowel Sounds, Soft, Abdomen, Obese, Other ( palpable Lap band Scar post open elsy, umbilical hernia). No: Ascites ...Rectal Exam: Yes: Deferred Genitourinary: No: Anuria, Bladder Distention, CVA Tenderness - Left, CVA Tenderness - Right Breast(s): Yes: WNL Musculoskeletal: Yes: WNL Extremities: No: Amputation, Calf Tenderness, Cold, Cyanosis Edema: Yes Edema: LLE: Trace, RLE: Trace Wound/Incision: Yes: Other (Right ankle ulcer-no discharge) Neurological: Yes: WNL ...Motor Strength: WNL Psychiatric: Yes: WNL Labs: CBC, BMP 02/05/18 05:45 02/05/18 05:45 INR, PTT INR 1.01 (0.82-1.09) 02/06/18 06:00 Problem List - Problems (1) Venous stasis ulcer Assessment/Plan: IV Vanco as per Dr Manriquez. ID F/u Local wound care Code(s): I83.009 - VARICOSE VEINS OF UNSP LOWER EXTREMITY W ULCER OF UNSP SITE; L97.909 - NON-PRS CHRONIC ULC UNSP PRT OF UNSP LOW LEG W UNSP SEVERITY Qualifiers: Venous stasis ulcer site: ankle Laterality: right Non-pressure ulcer stage: with fat layer exposed (2) Venous insufficiency (chronic) (peripheral) Assessment/Plan: Dr Alvarenga f/u Code(s): I87.2 - VENOUS INSUFFICIENCY (CHRONIC) (PERIPHERAL) (3) CHF (congestive heart failure), NYHA class II Assessment/Plan: continue Spironolactone, Torsemide, KDUR Code(s): I50.9 - HEART FAILURE, UNSPECIFIED Qualifiers: Congestive heart failure type: diastolic (4) Occult GI bleeding Assessment/Plan: Colonoscopy schedule by Dr Virk family history of colon CA Code(s): R19.5 - OTHER FECAL ABNORMALITIES
[2018-02-06] MEDS ORDERED: PEG3350/SOD SULF,BICARB,CL/KCL 4,000 ML SOLN.RECON PO ONE (09:00)
[2018-02-06] MEDS ORDERED: PT OWN MED DRAWER 7, Y5N ONE (09:00)
[2018-02-06] MEDS: SPIRONOLACTONE 25 MG TABLET (FP) PO SCH (09:26)
[2018-02-06] MEDS: LORATADINE 10 MG TABLET PO SCH (09:26)
[2018-02-06] MEDS: POTASSIUM CHLORIDE TABS 10 MEQ TABLET.ER (FP) PO SCH (09:26)
[2018-02-06] MEDS: CHOLECALCIFEROL (VITAMIN D3) 1,000 UNIT TABLET (FP) PO SCH (09:26)
[2018-02-06] MEDS: ASPIRIN 81 MG CHEWABLE TABLETS PO SCH (09:26)
[2018-02-06] MEDS: TORSEMIDE 10 MG TABLET PO SCH (09:27)
[2018-02-06] MEDS: RANITIDINE HCL 150 MG TABLET (FP) PO SCH ×2 (09:27→21:17)
[2018-02-06] MEDS: POLYETHYLENE GLYCOL 3350 119 GM BTL PO SCH (09:27)
--- NOTE | 2018-02-06 14:09 | PN ---
Progress Note (short form) - Note Progress Note: Patient with RLE chronic ulcer to lateral aspect. MRSA + Admittted so she can get IV ABX per ID. Wound care ordered: Topical Santyl/kerlix/elevate No surgical debridement needed. ABove discussed with Dr. Valdez and agrees
[2018-02-06] MEDS: VANCOMYCIN 1,500 MG in DEXTROSE 5%-WATER - 500 ML IVPB SCH (14:17)
--- NOTE | 2018-02-06 14:28 | PN ---
Progress Note, Physician History of Present Illness: dressing removed wound looked at surrounding erythema less wound margins looked at gi plans to scope on sunday - Current Medication List Current Medications: Active Medications Aspirin (Asa -) 81 mg PO DAILY [facility] Last Admin: 02/06/18 09:26 Dose: 81 mg Atorvastatin Calcium (Lipitor -) 10 mg PO [facility] Last Admin: 02/05/18 21:26 Dose: 10 mg Bisacodyl (Dulcolax -) 20 mg PO DAILY [facility] Stop: 02/07/18 10:01 Cholecalciferol (Vitamin D3 -) 5,000 unit PO DAILY [facility] Last Admin: 02/06/18 09:26 Dose: 5,000 unit Collagenase (Santyl -) 1 applic TP DAILY [facility] Vancomycin HCl 1,500 mg/ (Dextrose) 500 mls @ 250 mls/hr IVPB Q24H [facility] PRN Reason: Protocol Last Admin: 02/06/18 14:17 Dose: 250 mls/hr Loratadine (Claritin -) 10 mg PO DAILY [facility] Last Admin: 02/06/18 09:26 Dose: 10 mg Montelukast Sodium (Singulair -) 10 mg PO [facility] Last Admin: 02/05/18 21:26 Dose: 10 mg Polyethylene Glycol (Miralax (For Daily Use) -) 17 gm PO DAILY [facility] Last Admin: 02/06/18 09:27 Dose: 17 gm Potassium Chloride (K-Dur -) 10 meq PO DAILY [facility] Last Admin: 02/06/18 09:26 Dose: 10 meq Ranitidine HCl (Zantac -) 150 mg PO BID [facility] Last Admin: 02/06/18 09:27 Dose: 150 mg Senna/Docusate Sodium (Pericolace -) 2 tablet PO [facility] Last Admin: 02/05/18 21:26 Dose: 2 tablet Spironolactone (Aldactone -) 25 mg PO DAILY [facility] Last Admin: 02/06/18 09:26 Dose: 25 mg Torsemide (Demadex -) 10 mg PO DAILY [facility] Last Admin: 02/06/18 09:27 Dose: 10 mg - Objective Vital Signs: Vital Signs Temperature 98.0 F 02/06/18 13:39 Pulse Rate 84 02/06/18 13:39 Respiratory Rate 18 02/06/18 13:39 Blood Pressure 103/75 02/06/18 13:39 O2 Sat by Pulse Oximetry (%) 100 02/06/18 10:00 Constitutional: Yes: No Distress, Calm, Obese Cardiovascular: Yes: Regular Rate and Rhythm Respiratory: Yes: Regular, CTA Bilaterally Gastrointestinal: Yes: Normal Bowel Sounds, Soft Musculoskeletal: Yes: WNL Extremities: Yes: Other Edema: LLE: 1+, RLE: 1+ Integumentary: Yes: Erythema Wound/Incision: Yes: Dressing Removed, Other (wound looked at clean with no draiange) Neurological: Yes: Alert, Oriented Psychiatric: Yes: Alert Labs: CBC, BMP 02/05/18 05:45 02/05/18 05:45 INR, PTT INR 1.01 (0.82-1.09) 02/06/18 06:00 Assessment/Plan Problem List - Problems (1) Venous stasis ulcer Code(s): I83.009 - VARICOSE VEINS OF UNSP LOWER EXTREMITY W ULCER OF UNSP SITE; L97.909 - NON-PRS CHRONIC ULC UNSP PRT OF UNSP LOW LEG W UNSP SEVERITY Qualifiers: Venous stasis ulcer site: ankle Laterality: right Non-pressure ulcer stage: with fat layer exposed (2) Venous insufficiency (chronic) (peripheral) Code(s): I87.2 - VENOUS INSUFFICIENCY (CHRONIC) (PERIPHERAL) (3) Diarrhea Code(s): R19.7 - DIARRHEA, UNSPECIFIED (4) CHF (congestive heart failure), NYHA class II Code(s): I50.9 - HEART FAILURE, UNSPECIFIED Qualifiers: Congestive heart failure type: diastolic plan continue vanco patient for colonoscopy on sunday will d/w wound care--wound probably will need refreshing rest continue current mgmt
[2018-02-06] MEDS: COLLAGENASE CLOSTRIDIUM HIST. 30 GRAMS TUBE TP SCH (17:17)
[2018-02-06] MEDS: BISACODYL 5 MG TABLET.DR (FP) PO SCH (18:46)
[2018-02-06] MEDS: SENNOSIDES/DOCUSATE COMBO (SENNA PLUS) TABLET (UD) PO SCH (21:17)
[2018-02-06] MEDS: ATORVASTATIN CA 10 MG TABLET (FP) PO SCH (21:17)
[2018-02-06] MEDS: MONTELUKAST NA 10 MG TABLET PO SCH (21:17)
[2018-02-07 06:10] LABS: HBSAG SCREEN Negative (Negative); HEP B CORE AB, TOT Positive (Negative)
[2018-02-07 08:07] LABS: SERUM IRON SATURATION 21 % (15-55); TOTAL IRON BINDING CAPACITY 333 ug/dL (250-450); UIBC 262 ug/dL (131-425)
[2018-02-07] MEDS ORDERED: PEG3350/SOD SULF,BICARB,CL/KCL 4,000 ML SOLN.RECON PO ONE (09:00)
[2018-02-07] MEDS: BISACODYL 5 MG TABLET.DR (FP) PO SCH (10:20)
[2018-02-07] MEDS: CHOLECALCIFEROL (VITAMIN D3) 1,000 UNIT TABLET (FP) PO SCH (10:20)
[2018-02-07] MEDS: POTASSIUM CHLORIDE TABS 10 MEQ TABLET.ER (FP) PO SCH (10:20)
[2018-02-07] MEDS: SPIRONOLACTONE 25 MG TABLET (FP) PO SCH (10:21)
[2018-02-07] MEDS: RANITIDINE HCL 150 MG TABLET (FP) PO SCH ×2 (10:21→21:18)
[2018-02-07] MEDS: LORATADINE 10 MG TABLET PO SCH (10:21)
[2018-02-07] MEDS: ASPIRIN 81 MG CHEWABLE TABLETS PO SCH (10:21)
[2018-02-07] MEDS: POLYETHYLENE GLYCOL 3350 119 GM BTL PO SCH (10:21)
[2018-02-07] MEDS: TORSEMIDE 10 MG TABLET PO SCH (10:21)
[2018-02-07] MEDS: COLLAGENASE CLOSTRIDIUM HIST. 30 GRAMS TUBE TP SCH (10:22)
[2018-02-07 13:17] VITALS: BMI 49.6
[2018-02-07] MEDS: VANCOMYCIN 1,500 MG in DEXTROSE 5%-WATER - 500 ML IVPB SCH (13:32)
--- NOTE | 2018-02-07 13:42 | PN ---
Progress Note, Physician Chief Complaint: Ankle ulcer was seen by wound care and IDXochitl Wong IV treatment in progress. Preparation for colonoscopy-taking now. History of Present Illness: Non-healing ulcer of the right hill. HTN HFpEP HLD Asthma Intermittent diarrhea with guaiac positive stool Allergic rhinitis Obesity, s/p Lap band PSH BTL Opnen elsy umbilical hernia repair Lap band bariatric surgery - Current Medication List Current Medications: Active Medications Aspirin (Asa -) 81 mg PO DAILY [facility] Last Admin: 02/07/18 10:21 Dose: 81 mg Atorvastatin Calcium (Lipitor -) 10 mg PO HS [facility] Last Admin: 02/06/18 21:17 Dose: 10 mg Cholecalciferol (Vitamin D3 -) 5,000 unit PO DAILY [facility] Last Admin: 02/07/18 10:20 Dose: 5,000 unit Collagenase (Santyl -) 1 applic TP DAILY [facility] Last Admin: 02/07/18 10:22 Dose: 1 applic Vancomycin HCl 1,500 mg/ (Dextrose) 500 mls @ 250 mls/hr IVPB Q24H [facility] PRN Reason: Protocol Last Admin: 02/07/18 13:32 Dose: 250 mls/hr Loratadine (Claritin -) 10 mg PO DAILY [facility] Last Admin: 02/07/18 10:21 Dose: 10 mg Montelukast Sodium (Singulair -) 10 mg PO HS [facility] Last Admin: 02/06/18 21:17 Dose: 10 mg Polyethylene Glycol (Miralax (For Daily Use) -) 17 gm PO DAILY [facility] Last Admin: 02/07/18 10:21 Dose: 17 gm Potassium Chloride (K-Dur -) 10 meq PO DAILY [facility] Last Admin: 02/07/18 10:20 Dose: 10 meq Ranitidine HCl (Zantac -) 150 mg PO BID [facility] Last Admin: 02/07/18 10:21 Dose: 150 mg Senna/Docusate Sodium (Pericolace -) 2 tablet PO HS [facility] Last Admin: 02/06/18 21:17 Dose: 2 tablet Spironolactone (Aldactone -) 25 mg PO DAILY [facility] Last Admin: 02/07/18 10:21 Dose: 25 mg Torsemide (Demadex -) 10 mg PO DAILY [facility] Last Admin: 02/07/18 10:21 Dose: 10 mg - Objective Vital Signs: Vital Signs Temperature 97.6 F 02/07/18 10:00 Pulse Rate 73 02/07/18 10:00 Respiratory Rate 18 02/07/18 10:00 Blood Pressure 107/60 02/07/18 10:00 O2 Sat by Pulse Oximetry (%) 97 02/07/18 09:00 Constitutional: Yes: No Distress, Calm. No: Anxious, [place]hen Eyes: Yes: Conjunctiva Clear, EOM Intact HENT: Yes: Atraumatic, Normocephalic Neck: Yes: Supple, Trachea Midline Cardiovascular: Yes: Regular Rate and Rhythm. No: Bradycardia, Tachycardia Respiratory: Yes: Regular, CTA Bilaterally Gastrointestinal: Yes: Normal Bowel Sounds, Soft, Abdomen, Obese. No: Ascites, Palpable Mass, Tenderness ...Rectal Exam: Yes: Deferred Genitourinary: No: Anuria, Bladder Distention, CVA Tenderness - Left, CVA Tenderness - Right Breast(s): Yes: WNL Extremities: Yes: Other (right ankle ulcer). No: Calf Tenderness, Cold, Cyanosis Edema: Yes Edema: LLE: Trace, RLE: Trace Wound/Incision: Yes: Clean/Dry Neurological: Yes: WNL ...Motor Strength: WNL Psychiatric: Yes: WNL Labs: CBC, BMP 02/05/18 05:45 02/05/18 05:45 INR, PTT INR 1.01 (0.82-1.09) 02/06/18 06:00 Problem List - Problems (1) Venous stasis ulcer Assessment/Plan: IV Vanco as per Dr Manriquez. ID F/u Local wound care-[facility] Code(s): I83.009 - VARICOSE VEINS OF UNSP LOWER EXTREMITY W ULCER OF UNSP SITE; L97.909 - NON-PRS CHRONIC ULC UNSP PRT OF UNSP LOW LEG W UNSP SEVERITY Qualifiers: Venous stasis ulcer site: ankle Laterality: right Non-pressure ulcer stage: with fat layer exposed (2) Venous insufficiency (chronic) (peripheral) Assessment/Plan: Dr Alvarenga f/u Code(s): I87.2 - VENOUS INSUFFICIENCY (CHRONIC) (PERIPHERAL) (3) CHF (congestive heart failure), NYHA class II Assessment/Plan: continue Spironolactone, Torsemide, KDUR Code(s): I50.9 - HEART FAILURE, UNSPECIFIED Qualifiers: Congestive heart failure type: diastolic
[2018-02-07 14:14] LABS: TRANSGLUTAMINASE IGA < 2 U/mL (0-3); TRANSGLUTAMINASE IGG < 2 U/mL (0-5)
--- NOTE | 2018-02-07 15:56 | PN ---
Progress Note, Physician History of Present Illness: patient stable no new issues for colonscopy tomorrow - Current Medication List Current Medications: Active Medications Aspirin (Asa -) 81 mg PO DAILY [facility] Last Admin: 02/07/18 10:21 Dose: 81 mg Atorvastatin Calcium (Lipitor -) 10 mg PO HS [facility] Last Admin: 02/06/18 21:17 Dose: 10 mg Cholecalciferol (Vitamin D3 -) 5,000 unit PO DAILY [facility] Last Admin: 02/07/18 10:20 Dose: 5,000 unit Collagenase (Santyl -) 1 applic TP DAILY [facility] Last Admin: 02/07/18 10:22 Dose: 1 applic Vancomycin HCl 1,500 mg/ (Dextrose) 500 mls @ 250 mls/hr IVPB Q24H [facility] PRN Reason: Protocol Last Admin: 02/07/18 13:32 Dose: 250 mls/hr Loratadine (Claritin -) 10 mg PO DAILY [facility] Last Admin: 02/07/18 10:21 Dose: 10 mg Montelukast Sodium (Singulair -) 10 mg PO [facility] Last Admin: 02/06/18 21:17 Dose: 10 mg Polyethylene Glycol (Miralax (For Daily Use) -) 17 gm PO DAILY [facility] Last Admin: 02/07/18 10:21 Dose: 17 gm Potassium Chloride (K-Dur -) 10 meq PO DAILY [facility] Last Admin: 02/07/18 10:20 Dose: 10 meq Ranitidine HCl (Zantac -) 150 mg PO BID [facility] Last Admin: 02/07/18 10:21 Dose: 150 mg Senna/Docusate Sodium (Pericolace -) 2 tablet PO [facility] Last Admin: 02/06/18 21:17 Dose: 2 tablet Spironolactone (Aldactone -) 25 mg PO DAILY [facility] Last Admin: 02/07/18 10:21 Dose: 25 mg Torsemide (Demadex -) 10 mg PO DAILY [facility] Last Admin: 02/07/18 10:21 Dose: 10 mg - Objective Vital Signs: Vital Signs Temperature 97.4 F L 02/07/18 14:23 Pulse Rate 93 H 02/07/18 14:23 Respiratory Rate 16 02/07/18 14:23 Blood Pressure 145/69 02/07/18 14:23 O2 Sat by Pulse Oximetry (%) 97 02/07/18 09:00 Constitutional: Yes: No Distress, Calm, Obese Cardiovascular: Yes: Regular Rate and Rhythm Respiratory: Yes: Regular, CTA Bilaterally Gastrointestinal: Yes: Normal Bowel Sounds, Soft Musculoskeletal: Yes: WNL Extremities: Yes: Other Integumentary: Yes: Erythema Wound/Incision: Yes: Dressing Dry and Intact Neurological: Yes: Alert, Oriented Psychiatric: Yes: Alert, Oriented Labs: CBC, BMP 02/05/18 05:45 02/05/18 05:45 INR, PTT INR 1.01 (0.82-1.09) 02/06/18 06:00 Assessment/Plan Problem List - Problems (1) Venous stasis ulcer Code(s): I83.009 - VARICOSE VEINS OF UNSP LOWER EXTREMITY W ULCER OF UNSP SITE; L97.909 - NON-PRS CHRONIC ULC UNSP PRT OF UNSP LOW LEG W UNSP SEVERITY Qualifiers: Venous stasis ulcer site: ankle Laterality: right Non-pressure ulcer stage: with fat layer exposed (2) Venous insufficiency (chronic) (peripheral) Code(s): I87.2 - VENOUS INSUFFICIENCY (CHRONIC) (PERIPHERAL) (3) Diarrhea Code(s): R19.7 - DIARRHEA, UNSPECIFIED (4) CHF (congestive heart failure), NYHA class II Code(s): I50.9 - HEART FAILURE, UNSPECIFIED Qualifiers: Congestive heart failure type: diastolic plan continue vanco patient for colonoscopy on sunday will d/w wound care--wound probably will need refreshing rest continue current mgmt will check vanco trough
[2018-02-07] MEDS: MONTELUKAST NA 10 MG TABLET PO SCH (21:18)
[2018-02-07] MEDS: ATORVASTATIN CA 10 MG TABLET (FP) PO SCH (21:18)
[2018-02-07] MEDS: SENNOSIDES/DOCUSATE COMBO (SENNA PLUS) TABLET (UD) PO SCH (21:19)
--- NOTE | 2018-02-08 09:03 | PN ---
Progress Note, Physician Chief Complaint: Receiving IV Vanco. Awaiting colonoscopy today History of Present Illness: Non-healing ulcer of the right hill. HTN HFpEP HLD Asthma Intermittent diarrhea with guaiac positive stool Allergic rhinitis Obesity, s/p Lap band PSH BTL Opnen elsy umbilical hernia repair Lap band bariatric surgery - Current Medication List Current Medications: Active Medications Aspirin (Asa -) 81 mg PO DAILY [facility] Last Admin: 02/07/18 10:21 Dose: 81 mg Atorvastatin Calcium (Lipitor -) 10 mg PO HS [facility] Last Admin: 02/07/18 21:18 Dose: 10 mg Cholecalciferol (Vitamin D3 -) 5,000 unit PO DAILY [facility] Last Admin: 02/07/18 10:20 Dose: 5,000 unit Collagenase (Santyl -) 1 applic TP DAILY [facility] Last Admin: 02/07/18 10:22 Dose: 1 applic Vancomycin HCl 1,500 mg/ (Dextrose) 500 mls @ 250 mls/hr IVPB Q24H [facility] PRN Reason: Protocol Last Admin: 02/07/18 13:32 Dose: 250 mls/hr Loratadine (Claritin -) 10 mg PO DAILY [facility] Last Admin: 02/07/18 10:21 Dose: 10 mg Montelukast Sodium (Singulair -) 10 mg PO HS [facility] Last Admin: 02/07/18 21:18 Dose: 10 mg Polyethylene Glycol (Miralax (For Daily Use) -) 17 gm PO DAILY [facility] Last Admin: 02/07/18 10:21 Dose: 17 gm Potassium Chloride (K-Dur -) 10 meq PO DAILY [facility] Last Admin: 02/07/18 10:20 Dose: 10 meq Ranitidine HCl (Zantac -) 150 mg PO BID [facility] Last Admin: 02/07/18 21:18 Dose: 150 mg Senna/Docusate Sodium (Pericolace -) 2 tablet PO HS [facility] Last Admin: 02/07/18 21:19 Dose: Not Given Spironolactone (Aldactone -) 25 mg PO DAILY [facility] Last Admin: 02/07/18 10:21 Dose: 25 mg Torsemide (Demadex -) 10 mg PO DAILY [facility] Last Admin: 02/07/18 10:21 Dose: 10 mg - Objective Vital Signs: Vital Signs Temperature 97.6 F 02/08/18 06:00 Pulse Rate 89 02/08/18 06:00 Respiratory Rate 18 05/18/18 06:00 Blood Pressure 139/73 02/08/18 06:00 O2 Sat by Pulse Oximetry (%) 95 02/07/18 21:00 Constitutional: Yes: No Distress, Anxious Eyes: Yes: Conjunctiva Clear, EOM Intact HENT: Yes: Atraumatic, Normocephalic. No: Drooling Neck: Yes: Supple, Trachea Midline. No: Decreased ROM, Lymphadenopathy Cardiovascular: Yes: Regular Rate and Rhythm. No: Bradycardia, Tachycardia Respiratory: Yes: Regular, CTA Bilaterally Gastrointestinal: Yes: Normal Bowel Sounds, Soft, Abdomen, Obese ...Rectal Exam: Yes: Deferred Genitourinary: No: Anuria, Bladder Distention, CVA Tenderness - Left, CVA Tenderness - Right Breast(s): Yes: WNL Extremities: No: Calf Tenderness, Cold, Cyanosis Edema: Yes Edema: LLE: 1+, RLE: 1+ Peripheral Pulses WNL: No Integumentary: Yes: Venous Stasis Changes Wound/Incision: Yes: Other (Ankle ulcer). No: Draining Neurological: Yes: WNL ...Motor Strength: WNL Psychiatric: Yes: WNL Labs: CBC, BMP 02/05/18 05:45 02/05/18 05:45 INR, PTT INR 1.01 (0.82-1.09) 02/06/18 06:00 Problem List - Problems (1) Venous stasis ulcer Assessment/Plan: IV Vanco as per Dr Manriquez. ID F/u Local wound care-[facility] Code(s): I83.009 - VARICOSE VEINS OF UNSP LOWER EXTREMITY W ULCER OF UNSP SITE; L97.909 - NON-PRS CHRONIC ULC UNSP PRT OF UNSP LOW LEG W UNSP SEVERITY Qualifiers: Venous stasis ulcer site: ankle Laterality: right Non-pressure ulcer stage: with fat layer exposed (2) Venous insufficiency (chronic) (peripheral) Assessment/Plan: Dr Alvarenga f/u Code(s): I87.2 - VENOUS INSUFFICIENCY (CHRONIC) (PERIPHERAL) (3) CHF (congestive heart failure), NYHA class II Assessment/Plan: continue Spironolactone, Torsemide, KDUR Code(s): I50.9 - HEART FAILURE, UNSPECIFIED Qualifiers: Congestive heart failure type: diastolic
[2018-02-08] MEDS ORDERED: LIDOCAINE VISCOUS 2% ORAL/TOP 20 ML UNIT-DOSE CUP ONE (09:04)
[2018-02-08 10:17] LABS: ALPHA 2 MACROGLOBULINS,QN 145 mg/dL (110-276); ALT(SGPT)P5P 19 IU/L (0-40); CHOLESTEROL TOTAL 143 mg/dL (100-199); FIBROSIS SCORE 0.11 (0.00-0.21); GGT= 19 IU/L (0-60); GLUCOSE SERUM 97 mg/dL (65-99); HEIGHT 65 in (.); WEIGHT- 298 LBS (.)
[2018-02-08] MEDS: ASPIRIN 81 MG CHEWABLE TABLETS PO SCH (11:34)
[2018-02-08] MEDS: POTASSIUM CHLORIDE TABS 10 MEQ TABLET.ER (FP) PO SCH (11:34)
[2018-02-08] MEDS: POLYETHYLENE GLYCOL 3350 119 GM BTL PO SCH (11:34)
[2018-02-08] MEDS: SPIRONOLACTONE 25 MG TABLET (FP) PO SCH (11:34)
[2018-02-08] MEDS: TORSEMIDE 10 MG TABLET PO SCH (11:34)
[2018-02-08] MEDS: LORATADINE 10 MG TABLET PO SCH (11:34)
[2018-02-08] MEDS: RANITIDINE HCL 150 MG TABLET (FP) PO SCH (11:35)
[2018-02-08] MEDS: CHOLECALCIFEROL (VITAMIN D3) 1,000 UNIT TABLET (FP) PO SCH (11:35)
[2018-02-08] MEDS: COLLAGENASE CLOSTRIDIUM HIST. 30 GRAMS TUBE TP SCH (11:35)
[2018-02-08] MEDS ORDERED: PT OWN MED DRAWER 7, Y5N ONE (13:51)
[2018-02-08] MEDS: VANCOMYCIN 1,500 MG in DEXTROSE 5%-WATER - 500 ML IVPB SCH (14:39)
--- NOTE | 2018-02-08 14:42 | PN ---
Progress Note, Physician History of Present Illness: doing well no issues patient had colonoscopy done today comfortable - Current Medication List Current Medications: Active Medications Aspirin (Asa -) 81 mg PO DAILY [facility] Last Admin: 02/08/18 11:34 Dose: Not Given Atorvastatin Calcium (Lipitor -) 10 mg PO HS [facility] Last Admin: 02/07/18 21:18 Dose: 10 mg Cholecalciferol (Vitamin D3 -) 5,000 unit PO DAILY [facility] Last Admin: 02/08/18 11:35 Dose: Not Given Collagenase (Santyl -) 1 applic TP DAILY [facility] Last Admin: 02/08/18 11:35 Dose: Not Given Vancomycin HCl 1,500 mg/ (Dextrose) 500 mls @ 250 mls/hr IVPB Q24H [facility] PRN Reason: Protocol Last Admin: 02/08/18 14:39 Dose: 250 mls/hr Loratadine (Claritin -) 10 mg PO DAILY [facility] Last Admin: 02/08/18 11:34 Dose: Not Given Montelukast Sodium (Singulair -) 10 mg PO [facility] Last Admin: 02/07/18 21:18 Dose: 10 mg Polyethylene Glycol (Miralax (For Daily Use) -) 17 gm PO DAILY [facility] Last Admin: 02/08/18 11:34 Dose: Not Given Potassium Chloride (K-Dur -) 10 meq PO DAILY [facility] Last Admin: 02/08/18 11:34 Dose: Not Given Ranitidine HCl (Zantac -) 150 mg PO BID [facility] Last Admin: 02/08/18 11:35 Dose: Not Given Senna/Docusate Sodium (Pericolace -) 2 tablet PO [facility] Last Admin: 02/07/18 21:19 Dose: Not Given Spironolactone (Aldactone -) 25 mg PO DAILY [facility] Last Admin: 02/08/18 11:34 Dose: Not Given Torsemide (Demadex -) 10 mg PO DAILY [facility] Last Admin: 02/08/18 11:34 Dose: Not Given - Objective Vital Signs: Vital Signs Temperature 97.9 F 02/08/18 10:33 Pulse Rate 64 02/08/18 10:33 Respiratory Rate 18 02/08/18 10:33 Blood Pressure 118/62 02/08/18 10:33 O2 Sat by Pulse Oximetry (%) 100 02/08/18 10:33 Constitutional: Yes: No Distress, Calm, Obese Cardiovascular: Yes: Regular Rate and Rhythm Respiratory: Yes: Regular, CTA Bilaterally Gastrointestinal: Yes: Normal Bowel Sounds, Soft Musculoskeletal: Yes: WNL Extremities: Yes: Other Wound/Incision: Yes: Dressing Dry and Intact Neurological: Yes: Alert, Oriented Psychiatric: Yes: Alert, Oriented Labs: CBC, BMP 02/05/18 05:45 02/05/18 05:45 INR, PTT INR 1.01 (0.82-1.09) 02/06/18 06:00 Assessment/Plan Problem List - Problems (1) Venous stasis ulcer Code(s): I83.009 - VARICOSE VEINS OF UNSP LOWER EXTREMITY W ULCER OF UNSP SITE; L97.909 - NON-PRS CHRONIC ULC UNSP PRT OF UNSP LOW LEG W UNSP SEVERITY Qualifiers: Venous stasis ulcer site: ankle Laterality: right Non-pressure ulcer stage: with fat layer exposed (2) Venous insufficiency (chronic) (peripheral) Code(s): I87.2 - VENOUS INSUFFICIENCY (CHRONIC) (PERIPHERAL) (3) Diarrhea Code(s): R19.7 - DIARRHEA, UNSPECIFIED (4) CHF (congestive heart failure), NYHA class II Code(s): I50.9 - HEART FAILURE, UNSPECIFIED Qualifiers: Congestive heart failure type: diastolic plan continue vanco wound care await for vanco levels rest continue current mgmt await for colonoscopy findings
--- NOTE | 2018-02-08 15:42 | PN ---
Progress Note (short form) - Note Progress Note: GI Procedures Note: Please see EGD and colonoscopy reports. Duodenitis appears to be the source of occult bleeding. Colon polyps were removed. No colitis was seen. No GI objections to discharge. Problem List - Problems (1) Constipation by delayed colonic transit Code(s): K59.01 - SLOW TRANSIT CONSTIPATION (2) Family history of colon cancer in mother Code(s): Z80.0 - FAMILY HISTORY OF MALIGNANT NEOPLASM OF DIGESTIVE ORGANS (3) Occult GI bleeding Code(s): R19.5 - OTHER FECAL ABNORMALITIES (4) Anemia Code(s): D64.9 - ANEMIA, UNSPECIFIED
[2018-02-08] MEDS: SENNOSIDES/DOCUSATE COMBO (SENNA PLUS) TABLET (UD) PO SCH (22:04)
[2018-02-08] MEDS: MONTELUKAST NA 10 MG TABLET PO SCH (22:04)
[2018-02-08] MEDS: ATORVASTATIN CA 10 MG TABLET (FP) PO SCH (22:04)
[2018-02-09] MEDS ORDERED: PT OWN MED DRAWER 7, Y5N ONE (09:38)
[2018-02-09] MEDS: CHOLECALCIFEROL (VITAMIN D3) 1,000 UNIT TABLET (FP) PO SCH (09:41)
[2018-02-09] MEDS: POTASSIUM CHLORIDE TABS 10 MEQ TABLET.ER (FP) PO SCH (09:41)
[2018-02-09] MEDS: SPIRONOLACTONE 25 MG TABLET (FP) PO SCH (09:42)
[2018-02-09] MEDS: PANTOPRAZOLE 40 MG TABLET (FP) PO SCH (09:42)
[2018-02-09] MEDS: TORSEMIDE 10 MG TABLET PO SCH (09:42)
[2018-02-09] MEDS: LORATADINE 10 MG TABLET PO SCH (09:42)
[2018-02-09] MEDS: ASPIRIN 81 MG CHEWABLE TABLETS PO SCH (09:42)
[2018-02-09] MEDS: POLYETHYLENE GLYCOL 3350 119 GM BTL PO SCH (09:43)
[2018-02-09] MEDS: COLLAGENASE CLOSTRIDIUM HIST. 30 GRAMS TUBE TP SCH (09:48)
[2018-02-09] MEDS: VANCOMYCIN 1,500 MG in DEXTROSE 5%-WATER - 500 ML IVPB SCH (12:42)
--- NOTE | 2018-02-09 15:40 | PN ---
Progress Note, Physician History of Present Illness: improving wound looking better - Current Medication List Current Medications: Active Medications Aspirin (Asa -) 81 mg PO DAILY [facility] Last Admin: 02/09/18 09:42 Dose: 81 mg Atorvastatin Calcium (Lipitor -) 10 mg PO HS [facility] Last Admin: 02/08/18 22:04 Dose: 10 mg Cholecalciferol (Vitamin D3 -) 5,000 unit PO DAILY [facility] Last Admin: 02/09/18 09:41 Dose: 5,000 unit Collagenase (Santyl -) 1 applic TP DAILY [facility] Last Admin: 02/09/18 09:48 Dose: 1 applic Vancomycin HCl 1,500 mg/ (Dextrose) 500 mls @ 250 mls/hr IVPB Q24H [facility] PRN Reason: Protocol Last Admin: 02/09/18 12:42 Dose: 250 mls/hr Loratadine (Claritin -) 10 mg PO DAILY [facility] Last Admin: 02/09/18 09:42 Dose: 10 mg Montelukast Sodium (Singulair -) 10 mg PO [facility] Last Admin: 02/08/18 22:04 Dose: 10 mg Pantoprazole Sodium (Protonix -) 40 mg PO DAILY [facility] Last Admin: 02/09/18 09:42 Dose: 40 mg Polyethylene Glycol (Miralax (For Daily Use) -) 17 gm PO DAILY [facility] Last Admin: 02/09/18 09:43 Dose: 17 gm Potassium Chloride (K-Dur -) 10 meq PO DAILY [facility] Last Admin: 02/09/18 09:41 Dose: 10 meq Senna/Docusate Sodium (Pericolace -) 2 tablet PO [facility] Last Admin: 02/08/18 22:04 Dose: 2 tablet Spironolactone (Aldactone -) 25 mg PO DAILY [facility] Last Admin: 02/09/18 09:42 Dose: 25 mg Torsemide (Demadex -) 10 mg PO DAILY [facility] Last Admin: 02/09/18 09:42 Dose: 10 mg - Objective Vital Signs: Vital Signs Temperature 98.6 F 02/09/18 13:53 Pulse Rate 75 02/09/18 13:53 Respiratory Rate 20 02/09/18 13:53 Blood Pressure 113/55 02/09/18 13:53 O2 Sat by Pulse Oximetry (%) 98 02/09/18 09:00 Constitutional: Yes: No Distress, Calm Cardiovascular: Yes: Regular Rate and Rhythm Respiratory: Yes: Regular, CTA Bilaterally Gastrointestinal: Yes: Normal Bowel Sounds, Soft Musculoskeletal: Yes: WNL Extremities: Yes: WNL Wound/Incision: Yes: Dressing Dry and Intact Neurological: Yes: Alert, Oriented Psychiatric: Yes: Alert, Oriented Labs: CBC, BMP 02/05/18 05:45 02/05/18 05:45 INR, PTT INR 1.01 (0.82-1.09) 02/06/18 06:00 Assessment/Plan Problem List - Problems (1) Venous stasis ulcer Code(s): I83.009 - VARICOSE VEINS OF UNSP LOWER EXTREMITY W ULCER OF UNSP SITE; L97.909 - NON-PRS CHRONIC ULC UNSP PRT OF UNSP LOW LEG W UNSP SEVERITY Qualifiers: Venous stasis ulcer site: ankle Laterality: right Non-pressure ulcer stage: with fat layer exposed (2) Venous insufficiency (chronic) (peripheral) Code(s): I87.2 - VENOUS INSUFFICIENCY (CHRONIC) (PERIPHERAL) (3) Diarrhea Code(s): R19.7 - DIARRHEA, UNSPECIFIED (4) CHF (congestive heart failure), NYHA class II Code(s): I50.9 - HEART FAILURE, UNSPECIFIED Qualifiers: Congestive heart failure type: diastolic plan continue vanco wound care wound improving as per gi
--- NOTE | 2018-02-09 16:41 | PN ---
Physical Exam: SUBJECTIVE: Patient seen and examined. Pt states RLE is more painful today, denies fever, chills. OBJECTIVE: Vital Signs Period Temp Pulse Resp BP Sys/[place] Pulse Ox Last 24 Hr 97.7 F-98.6 F 70-91 16-20 113-152/52-70 98-100 PE Neuro: alert, awake, cn 2-12intact HEENT: poor dentition Pulm: distant, clear CV: s1 s2 rrr Abd: obese, s nd nt +bs Ext: RLE wound with slough +tenderness, erythema, LLE erythema, drying, scaling Active Medications Generic Name Dose Route Start Last Admin Trade Name Freq PRN Reason Stop Dose Admin Aspirin 81 mg 02/05/18 10:00 02/09/18 09:42 Asa - PO 81 mg DAILY [facility] Administration Atorvastatin Calcium 10 mg 02/04/18 22:00 02/08/18 22:04 Lipitor - PO 10 mg HS [facility] Administration Cholecalciferol 5,000 unit 02/05/18 10:00 02/09/18 09:41 Vitamin D3 - PO 5,000 unit DAILY [facility] Administration Collagenase 1 applic 02/06/18 14:45 02/09/18 09:48 Santyl - TP 1 applic DAILY [facility] Administration Vancomycin HCl 1,500 mg/ 500 mls @ 250 mls/hr 02/05/18 13:30 02/09/18 12:42 Dextrose IVPB 250 mls/hr Q24H [facility] Administration Protocol Loratadine 10 mg 02/05/18 10:00 02/09/18 09:42 Claritin - PO 10 mg DAILY [facility] Administration Montelukast Sodium 10 mg 02/04/18 22:00 02/08/18 22:04 Singulair - PO 10 mg HS [facility] Administration Pantoprazole Sodium 40 mg 02/09/18 10:00 02/09/18 09:42 Protonix - PO 40 mg DAILY [facility] Administration Polyethylene Glycol 17 gm 02/05/18 13:30 02/09/18 09:43 Miralax (For Daily Use) - PO 17 gm DAILY [facility] Administration Potassium Chloride 10 meq 02/05/18 10:00 02/09/18 09:41 K-Dur - PO 10 meq DAILY [facility] Administration Senna/Docusate Sodium 2 tablet 02/05/18 22:00 02/08/18 22:04 Pericolace - PO 2 tablet HS [facility] Administration Spironolactone 25 mg 02/05/18 10:00 02/09/18 09:42 Aldactone - PO 25 mg DAILY [facility] Administration Torsemide 10 mg 02/05/18 10:00 02/09/18 09:42 Demadex - PO 10 mg DAILY [facility] Administration Assessment: 62 year old female sent from [facility] for hospitalization due to MRSA infected non-healing ulcer of the LE. Plan:: 1. Venous stasis ulcer - Continue Vanco - ID seeing - Daily wound care - Give additional dose lasix 40mg x1 2. Rectal bleeding - EGD and colonoscopy 02/08 with Duodenitis as bleeding source. Colon polyps were removed - Cont PPI 3. Venous insufficiency - Dr. Alvarenga following, ? debriedment 4. CHF - Continue Spironolactone - Torsemide 10mg daily 5. DVT ppx - Heparin sq Visit type - Emergency Visit Emergency Visit: Yes ED Registration Date: 02/04/18 Care time: The patient presented to the Emergency Department on the above date and was hospitalized for further evaluation of their emergent condition. - New Patient This patient is new to me today: Yes Date on this admission: 02/09/18 - Critical Care Critical Care patient: No
[2018-02-09] MEDS ORDERED: FUROSEMIDE 40 MG/4 ML INJECTABLE VIAL IVPUSH ONE (16:58)
[2018-02-09] MEDS: MONTELUKAST NA 10 MG TABLET PO SCH (21:43)
[2018-02-09] MEDS: HEPARIN NA (PORCINE) 5,000 UNITS/ML 1ML VIAL SQ SCH (21:43)
[2018-02-09] MEDS: ATORVASTATIN CA 10 MG TABLET (FP) PO SCH (21:43)
[2018-02-09] MEDS: SENNOSIDES/DOCUSATE COMBO (SENNA PLUS) TABLET (UD) PO SCH (21:43)
[2018-02-10] MEDS: HEPARIN NA (PORCINE) 5,000 UNITS/ML 1ML VIAL SQ SCH ×3 (05:19→21:19)
[2018-02-10] MEDS: POTASSIUM CHLORIDE TABS 10 MEQ TABLET.ER (FP) PO SCH (09:44)
[2018-02-10] MEDS: ASPIRIN 81 MG CHEWABLE TABLETS PO SCH (09:44)
[2018-02-10] MEDS: LORATADINE 10 MG TABLET PO SCH (09:44)
[2018-02-10] MEDS: CHOLECALCIFEROL (VITAMIN D3) 1,000 UNIT TABLET (FP) PO SCH (09:44)
[2018-02-10] MEDS: SPIRONOLACTONE 25 MG TABLET (FP) PO SCH (09:45)
[2018-02-10] MEDS: PANTOPRAZOLE 40 MG TABLET (FP) PO SCH (09:45)
[2018-02-10] MEDS: TORSEMIDE 10 MG TABLET PO SCH (09:45)
[2018-02-10] MEDS: POLYETHYLENE GLYCOL 3350 119 GM BTL PO SCH (09:46)
--- NOTE | 2018-02-10 11:10 | PN ---
Physical Exam: SUBJECTIVE: Patient seen and examined. Pt states the swelling improved and pain less today. OBJECTIVE: Vital Signs Period Temp Pulse Resp BP Sys/[place] Pulse Ox Last 24 Hr 97.2 F-98.6 F 59-75 18-20 113-158/55-59 98 PE Neuro: alert, awake, cn 2-12intact HEENT: poor dentition Pulm: CTAB CV: s1 s2 rrr Abd: obese, s nd nt +bs Ext: RLE wound with slough, tenderness improved, LLE erythema- improved, swelling less bilaterally Laboratory Results - last 24 hr 02/06/18 11:30 Stool O & P Wet [place] & P Permanent Slide Final report Active Medications Generic Name Dose Route Start Last Admin Trade Name Freq PRN Reason Stop Dose Admin Aspirin 81 mg 02/05/18 10:00 02/10/18 09:44 Asa - PO 81 mg DAILY [facility] Administration Atorvastatin Calcium 10 mg 02/04/18 22:00 02/09/18 21:43 Lipitor - PO 10 mg HS [facility] Administration Cholecalciferol 5,000 unit 02/05/18 10:00 02/10/18 09:44 Vitamin D3 - PO 5,000 unit DAILY [facility] Administration Collagenase 1 applic 02/06/18 14:45 02/09/18 09:48 Santyl - TP 1 applic DAILY [facility] Administration Heparin Sodium (Porcine) 5,000 unit 02/09/18 22:00 02/10/18 05:19 Heparin - SQ 5,000 unit TID [facility] Administration Vancomycin HCl 1,500 mg/ 500 mls @ 250 mls/hr 02/05/18 13:30 02/09/18 12:42 Dextrose IVPB 250 mls/hr Q24H [facility] Administration Protocol Loratadine 10 mg 02/05/18 10:00 02/10/18 09:44 Claritin - PO 10 mg DAILY [facility] Administration Montelukast Sodium 10 mg 02/04/18 22:00 02/09/18 21:43 Singulair - PO 10 mg HS [facility] Administration Pantoprazole Sodium 40 mg 02/09/18 10:00 02/10/18 09:45 Protonix - PO 40 mg DAILY [facility] Administration Polyethylene Glycol 17 gm 02/05/18 13:30 02/10/18 09:46 Miralax (For Daily Use) - PO 17 gm DAILY [facility] Administration Potassium Chloride 10 meq 02/05/18 10:00 02/10/18 09:44 K-Dur - PO 10 meq DAILY [facility] Administration Senna/Docusate Sodium 2 tablet 02/05/18 22:00 02/09/18 21:43 Pericolace - PO 2 tablet HS [facility] Administration Spironolactone 25 mg 02/05/18 10:00 02/10/18 09:45 Aldactone - PO 25 mg DAILY [facility] Administration Torsemide 10 mg 02/05/18 10:00 02/10/18 09:45 Demadex - PO 10 mg DAILY [facility] Administration Assessment: 62 year old female sent from [facility] for hospitalization due to MRSA infected non-healing ulcer of the LE. Plan:: 1. Venous stasis ulcer - Continue Vanco - ID seeing - Daily wound care - Swelling improved w/ lasix, will dose 40mg x1 today 2. Rectal bleeding - EGD and colonoscopy 02/08 with Duodenitis as bleeding source. Colon polyps were removed - Cont PPI 3. Venous insufficiency - Dr. Alvarenga following, ? debriedment 4. CHF - Continue Spironolactone - Torsemide 10mg daily - Would consider increasing torsemide dose, defer to Primary tomorrow 5. DVT ppx - Heparin sq Visit type - Emergency Visit Emergency Visit: Yes ED Registration Date: 02/04/18 Care time: The patient presented to the Emergency Department on the above date and was hospitalized for further evaluation of their emergent condition. - New Patient This patient is new to me today: No - Critical Care Critical Care patient: No
[2018-02-10] MEDS ORDERED: FUROSEMIDE 40 MG/4 ML INJECTABLE VIAL IVPUSH ONE (11:12)
--- NOTE | 2018-02-10 11:35 | PN ---
Progress Note, Physician History of Present Illness: stable doing well no issues wound dry - Current Medication List Current Medications: Active Medications Aspirin (Asa -) 81 mg PO DAILY [facility] Last Admin: 02/10/18 09:44 Dose: 81 mg Atorvastatin Calcium (Lipitor -) 10 mg PO HS [facility] Last Admin: 02/09/18 21:43 Dose: 10 mg Cholecalciferol (Vitamin D3 -) 5,000 unit PO DAILY [facility] Last Admin: 02/10/18 09:44 Dose: 5,000 unit Collagenase (Santyl -) 1 applic TP DAILY [facility] Last Admin: 02/09/18 09:48 Dose: 1 applic Furosemide (Lasix Injection -) 40 mg IVPUSH ONCE ONE Stop: 02/10/18 11:13 Heparin Sodium (Porcine) (Heparin -) 5,000 unit SQ TID [facility] Last Admin: 02/10/18 05:19 Dose: 5,000 unit Vancomycin HCl 1,500 mg/ (Dextrose) 500 mls @ 250 mls/hr IVPB Q24H [facility] PRN Reason: Protocol Last Admin: 02/09/18 12:42 Dose: 250 mls/hr Loratadine (Claritin -) 10 mg PO DAILY [facility] Last Admin: 02/10/18 09:44 Dose: 10 mg Montelukast Sodium (Singulair -) 10 mg PO HS [facility] Last Admin: 02/09/18 21:43 Dose: 10 mg Pantoprazole Sodium (Protonix -) 40 mg PO DAILY [facility] Last Admin: 02/10/18 09:45 Dose: 40 mg Polyethylene Glycol (Miralax (For Daily Use) -) 17 gm PO DAILY [facility] Last Admin: 02/10/18 09:46 Dose: 17 gm Potassium Chloride (K-Dur -) 10 meq PO DAILY [facility] Last Admin: 02/10/18 09:44 Dose: 10 meq Senna/Docusate Sodium (Pericolace -) 2 tablet PO HS [facility] Last Admin: 02/09/18 21:43 Dose: 2 tablet Spironolactone (Aldactone -) 25 mg PO DAILY [facility] Last Admin: 02/10/18 09:45 Dose: 25 mg Torsemide (Demadex -) 10 mg PO DAILY [facility] Last Admin: 02/10/18 09:45 Dose: 10 mg - Objective Vital Signs: Vital Signs Temperature 97.2 F L 02/10/18 05:56 Pulse Rate 59 L 02/10/18 05:56 Respiratory Rate 18 02/09/18 22:00 Blood Pressure 146/59 02/09/18 22:00 O2 Sat by Pulse Oximetry (%) 98 02/09/18 22:00 Constitutional: Yes: No Distress, Calm, Obese Cardiovascular: Yes: Regular Rate and Rhythm Respiratory: Yes: Regular, CTA Bilaterally Gastrointestinal: Yes: Normal Bowel Sounds, Soft Musculoskeletal: Yes: WNL Extremities: Yes: Other Wound/Incision: Yes: Dressing Dry and Intact Neurological: Yes: Alert, Oriented Psychiatric: Yes: Alert, Oriented Labs: CBC, BMP 02/05/18 05:45 02/05/18 05:45 INR, PTT INR 1.01 (0.82-1.09) 02/06/18 06:00 Assessment/Plan Problem List - Problems (1) Venous stasis ulcer Code(s): I83.009 - VARICOSE VEINS OF UNSP LOWER EXTREMITY W ULCER OF UNSP SITE; L97.909 - NON-PRS CHRONIC ULC UNSP PRT OF UNSP LOW LEG W UNSP SEVERITY Qualifiers: Venous stasis ulcer site: ankle Laterality: right Non-pressure ulcer stage: with fat layer exposed (2) Venous insufficiency (chronic) (peripheral) Code(s): I87.2 - VENOUS INSUFFICIENCY (CHRONIC) (PERIPHERAL) (3) Diarrhea Code(s): R19.7 - DIARRHEA, UNSPECIFIED (4) CHF (congestive heart failure), NYHA class II Code(s): I50.9 - HEART FAILURE, UNSPECIFIED Qualifiers: Congestive heart failure type: diastolic plan continue vanco wound care gi on case patient stable
[2018-02-10] MEDS ORDERED: PT OWN MED DRAWER 7, Y5N ONE (12:56)
[2018-02-10] MEDS: VANCOMYCIN 1,500 MG in DEXTROSE 5%-WATER - 500 ML IVPB SCH (14:46)
[2018-02-10] MEDS: COLLAGENASE CLOSTRIDIUM HIST. 30 GRAMS TUBE TP SCH (18:32)
[2018-02-10] MEDS: MONTELUKAST NA 10 MG TABLET PO SCH (21:19)
[2018-02-10] MEDS: ATORVASTATIN CA 10 MG TABLET (FP) PO SCH (21:19)
[2018-02-10] MEDS: SENNOSIDES/DOCUSATE COMBO (SENNA PLUS) TABLET (UD) PO SCH (21:19)
[2018-02-11] MEDS: HEPARIN NA (PORCINE) 5,000 UNITS/ML 1ML VIAL SQ SCH ×3 (05:53→21:08)
[2018-02-11 09:08] LABS: ANION GAP 6 (8-16); BLOOD UREA NITROGEN 13 mg/dL (7-18); CALCIUM 9.7 mg/dL (8.5-10.1); CHLORIDE 99 mmol/L (98-107); CO2 33 mmol/L (21-32); CREATININE 0.8 mg/dL (0.55-1.02); GLUCOSE,RANDOM 87 mg/dL (74-106); POTASSIUM 3.7 mmol/L (3.5-5.1); SODIUM 138 mmol/L (136-145)
[2018-02-11] MEDS: ASPIRIN 81 MG CHEWABLE TABLETS PO SCH (10:38)
[2018-02-11] MEDS: LORATADINE 10 MG TABLET PO SCH (10:38)
[2018-02-11] MEDS: CHOLECALCIFEROL (VITAMIN D3) 1,000 UNIT TABLET (FP) PO SCH (10:38)
[2018-02-11] MEDS: SPIRONOLACTONE 25 MG TABLET (FP) PO SCH (10:38)
[2018-02-11] MEDS: POTASSIUM CHLORIDE TABS 10 MEQ TABLET.ER (FP) PO SCH (10:38)
[2018-02-11] MEDS: POLYETHYLENE GLYCOL 3350 119 GM BTL PO SCH (10:38)
[2018-02-11] MEDS: PANTOPRAZOLE 40 MG TABLET (FP) PO SCH (10:38)
[2018-02-11] MEDS ORDERED: PT OWN MED DRAWER 7, Y5N ONE ×3 (10:48→14:09)
[2018-02-11] MEDS: COLLAGENASE CLOSTRIDIUM HIST. 30 GRAMS TUBE TP SCH (10:49)
[2018-02-11] MEDS: TORSEMIDE 10 MG TABLET PO SCH (10:49)
--- NOTE | 2018-02-11 10:54 | PN ---
GI Progress Note Subjective: GI NOte: NO adverse reactions to the endoscopies. I discussed the results again with her. Her ferritin is only 20. Will give Venofer as iron orally will worsen her constipation. - Objective Vital Signs: Vital Signs Temperature 97.7 F 02/11/18 06:00 Pulse Rate 74 02/11/18 06:00 Respiratory Rate 20 02/10/18 21:00 Blood Pressure 130/56 02/11/18 06:00 O2 Sat by Pulse Oximetry (%) 98 02/10/18 21:00 Laboratory Tests 02/06/18 02/06/18 06:00 06:30 Iron Saturation 21 Ferritin 20.682 Liver Fibrosis Score 0.11 Constitutional: Calm ...Auscultate: Yes: Normoactive Bowel Sounds ...Palpate: Yes: Soft, Other Labs: CBC, BMP 02/05/18 05:45 02/11/18 07:45 INR, PTT INR 1.01 (0.82-1.09) 02/06/18 06:00 Problem List - Problems (1) Constipation by delayed colonic transit Code(s): K59.01 - SLOW TRANSIT CONSTIPATION (2) Family history of colon cancer in mother Code(s): Z80.0 - FAMILY HISTORY OF MALIGNANT NEOPLASM OF DIGESTIVE ORGANS (3) Occult GI bleeding Code(s): R19.5 - OTHER FECAL ABNORMALITIES (4) Anemia Assessment/Plan: Will order Venofer. Code(s): D64.9 - ANEMIA, UNSPECIFIED Qualifiers: Anemia type: iron deficiency (5) Duodenitis Assessment/Plan: Continue PPI. No GI objections to discharge Code(s): K29.80 - DUODENITIS WITHOUT BLEEDING (6) Diverticula of colon Code(s): K57.30 - DVRTCLOS OF LG INT W/O PERFORATION OR ABSCESS W/O BLEEDING
[2018-02-11] MEDS ORDERED: IRON SUCROSE INJECTION 200 MG in SODIUM CHLORIDE 240 ML IVPB ONE (12:30)
[2018-02-11] MEDS: VANCOMYCIN 1,500 MG in DEXTROSE 5%-WATER - 500 ML IVPB SCH (14:28)
--- NOTE | 2018-02-11 15:20 | PN ---
Progress Note, Physician History of Present Illness: wound starting to look much better no draining becoming smaller patient getting iron infusions - Current Medication List Current Medications: Active Medications Aspirin (Asa -) 81 mg PO DAILY [facility] Last Admin: 02/11/18 10:38 Dose: 81 mg Atorvastatin Calcium (Lipitor -) 10 mg PO HS [facility] Last Admin: 02/10/18 21:19 Dose: 10 mg Cholecalciferol (Vitamin D3 -) 5,000 unit PO DAILY [facility] Last Admin: 02/11/18 10:38 Dose: 5,000 unit Collagenase (Santyl -) 1 applic TP DAILY [facility] Last Admin: 02/11/18 10:49 Dose: 1 applic Heparin Sodium (Porcine) (Heparin -) 5,000 unit SQ TID [facility] Last Admin: 02/11/18 14:26 Dose: 5,000 unit Vancomycin HCl 1,500 mg/ (Dextrose) 500 mls @ 250 mls/hr IVPB Q24H [facility] PRN Reason: Protocol Last Admin: 02/11/18 14:28 Dose: 250 mls/hr Loratadine (Claritin -) 10 mg PO DAILY [facility] Last Admin: 02/11/18 10:38 Dose: 10 mg Montelukast Sodium (Singulair -) 10 mg PO HS [facility] Last Admin: 02/10/18 21:19 Dose: 10 mg Pantoprazole Sodium (Protonix -) 40 mg PO DAILY [facility] Last Admin: 02/11/18 10:38 Dose: 40 mg Polyethylene Glycol (Miralax (For Daily Use) -) 17 gm PO DAILY [facility] Last Admin: 02/11/18 10:38 Dose: 17 gm Potassium Chloride (K-Dur -) 10 meq PO DAILY [facility] Last Admin: 02/11/18 10:38 Dose: 10 meq Senna/Docusate Sodium (Pericolace -) 2 tablet PO HS [facility] Last Admin: 02/10/18 21:19 Dose: 2 tablet Spironolactone (Aldactone -) 25 mg PO DAILY [facility] Last Admin: 02/11/18 10:38 Dose: 25 mg Torsemide (Demadex -) 10 mg PO DAILY [facility] Last Admin: 02/11/18 10:49 Dose: 10 mg - Objective Vital Signs: Vital Signs Temperature 97.7 F 02/11/18 06:00 Pulse Rate 74 02/11/18 06:00 Respiratory Rate 20 02/10/18 21:00 Blood Pressure 130/56 02/11/18 06:00 O2 Sat by Pulse Oximetry (%) 98 02/10/18 21:00 Constitutional: Yes: No Distress, Calm, Obese Cardiovascular: Yes: Regular Rate and Rhythm Respiratory: Yes: Regular, CTA Bilaterally Gastrointestinal: Yes: Normal Bowel Sounds, Soft Musculoskeletal: Yes: WNL Extremities: Yes: WNL Integumentary: Yes: Erythema (much better) Wound/Incision: Yes: Dressing Removed, Other Neurological: Yes: Alert, Oriented Psychiatric: Yes: Alert, Oriented Labs: CBC, BMP 02/05/18 05:45 02/11/18 07:45 INR, PTT INR 1.01 (0.82-1.09) 02/06/18 06:00 Assessment/Plan Problem List - Problems (1) Venous stasis ulcer Code(s): I83.009 - VARICOSE VEINS OF UNSP LOWER EXTREMITY W ULCER OF UNSP SITE; L97.909 - NON-PRS CHRONIC ULC UNSP PRT OF UNSP LOW LEG W UNSP SEVERITY Qualifiers: Venous stasis ulcer site: ankle Laterality: right Non-pressure ulcer stage: with fat layer exposed (2) Venous insufficiency (chronic) (peripheral) Code(s): I87.2 - VENOUS INSUFFICIENCY (CHRONIC) (PERIPHERAL) (3) Diarrhea Code(s): R19.7 - DIARRHEA, UNSPECIFIED (4) CHF (congestive heart failure), NYHA class II Code(s): I50.9 - HEART FAILURE, UNSPECIFIED Qualifiers: Congestive heart failure type: diastolic plan continue vanco wound care wound improving patient will need 2 weeks total of iv abx and then will need couple of weeks of oral abx wound is starting to improve
--- NOTE | 2018-02-11 17:00 | PATH ---
Surgical Pathology Report Patient Name: NEIL MEDRANO [facility]. Rec. #: [id number] /Age/Gender: 1955 (Age: 62) / F Account: [id number] Location: [address] [place] [id number] Taken: 02/08/2018 Received: 02/08/2018 Reported: 02/11/2018 Physicians: Garrett Foster M.D. Specimen(s) Received A: BX DUODENAL BULB B: BX GASTRIC FUNDUS POLYP C: BX ANTRUM D: BX RIGHT COLON POLYP E: BX CECUM F: SIGMOID COLON POLYP G: BX RECTAL POLYPS Clinical History GI bleeding, colon cancer screening, family history of colon cancer Postoperative diagnosis: Duodenitis, gastric polyps, hiatal hernia, colon polyps, diverticulosis Final Diagnosis A. DUODENUM, SECOND PORTION AND BULB, BIOPSY: DUODENAL MUCOSA WITH ACUTE AND CHRONIC DUODENITIS. B. GASTRIC FUNDUS POLYP, POLYPECTOMY: GASTRIC FUNDIC GLAND POLYP. IMMUNOSTAIN IS NEGATIVE FOR H. PYLORI ORGANISMS. C. GASTRIC ANTRUM, BIOPSY: GASTRIC MUCOSA WITH CHRONIC GASTRITIS. D. RIGHT COLON POLYP, POLYPECTOMY: TUBULAR ADENOMA. E. CECUM, BIOPSY: COLONIC MUCOSA WITH REACTIVE LYMPHOID AGGREGATE. F. SIGMOID COLON POLYP, POLYPECTOMY: HYPERPLASTIC POLYP. G. RECTAL POLYPS, POLYPECTOMY: HYPERPLASTIC POLYP, FRAGMENTS. Electronically Signed Romelia Garcia M.D. Gross Description A. Received in formalin, labeled "biopsy second portion of duodenum and bulb" are 3 barry, irregular portions of soft tissue averaging 0.4 cm. in greatest dimension. The specimens are submitted in toto in one cassette. B. Received in formalin, labeled "biopsy gastric fundus polyp" are 4 barry, irregular portions of soft tissue ranging from 0.1-0.4 cm. in greatest dimension. The specimens are submitted in toto in one cassette. C. Received in formalin, labeled "biopsy antrum" are 3 barry, irregular portions of soft tissue ranging from 0.2-0.6 cm. in greatest dimension. The specimens are submitted in toto in one cassette. D. Received in formalin, labeled "biopsy right colon polyp" are 3 barry, irregular portions of soft tissue ranging from 0.2-0.4 cm. in greatest dimension. The specimens are submitted in toto in one cassette. E. Received in formalin, labeled "biopsy cecum" are 2 barry, irregular portions of soft tissue measuring 0.3 and 0.4 cm. in greatest dimension. The specimens are submitted in toto in one cassette. F. Received in formalin, labeled "sigmoid colon polyp" is a barry, irregular portion of soft tissue measuring 0.6 cm. in greatest dimension. The specimen is submitted in toto in one cassette. G. Received in formalin, labeled "biopsy rectal polyps" are 2 barry, irregular portions of soft tissue measuring 0.3 and 0.4 cm. in greatest dimension. The specimens are submitted in toto in one cassette. 02/08/2018 [facility]02/08/2018
--- NOTE | 2018-02-11 19:46 | PN ---
Progress Note, Physician Chief Complaint: RLE wound is slowly improving. C/o LE pre-tibial edema. History of Present Illness: Non-healing ulcer of the right hill. HTN HFpEP HLD Asthma Intermittent diarrhea with guaiac positive stool Allergic rhinitis Obesity, s/p Lap band PSH BTL Opnen elsy umbilical hernia repair Lap band bariatric surgery - Current Medication List Current Medications: Active Medications Aspirin (Asa -) 81 mg PO DAILY [facility] Last Admin: 02/11/18 10:38 Dose: 81 mg Atorvastatin Calcium (Lipitor -) 10 mg PO HS [facility] Last Admin: 02/10/18 21:19 Dose: 10 mg Cholecalciferol (Vitamin D3 -) 5,000 unit PO DAILY [facility] Last Admin: 02/11/18 10:38 Dose: 5,000 unit Collagenase (Santyl -) 1 applic TP DAILY [facility] Last Admin: 02/11/18 10:49 Dose: 1 applic Heparin Sodium (Porcine) (Heparin -) 5,000 unit SQ TID [facility] Last Admin: 02/11/18 14:26 Dose: 5,000 unit Vancomycin HCl 1,500 mg/ (Dextrose) 500 mls @ 250 mls/hr IVPB Q24H [facility] PRN Reason: Protocol Last Admin: 02/11/18 14:28 Dose: 250 mls/hr Loratadine (Claritin -) 10 mg PO DAILY [facility] Last Admin: 02/11/18 10:38 Dose: 10 mg Montelukast Sodium (Singulair -) 10 mg PO HS [facility] Last Admin: 02/10/18 21:19 Dose: 10 mg Pantoprazole Sodium (Protonix -) 40 mg PO DAILY [facility] Last Admin: 02/11/18 10:38 Dose: 40 mg Polyethylene Glycol (Miralax (For Daily Use) -) 17 gm PO DAILY [facility] Last Admin: 02/11/18 10:38 Dose: 17 gm Potassium Chloride (K-Dur -) 10 meq PO DAILY [facility] Last Admin: 02/11/18 10:38 Dose: 10 meq Senna/Docusate Sodium (Pericolace -) 2 tablet PO HS [facility] Last Admin: 02/10/18 21:19 Dose: 2 tablet Spironolactone (Aldactone -) 25 mg PO DAILY [facility] Last Admin: 02/11/18 10:38 Dose: 25 mg Torsemide (Demadex -) 10 mg PO BID [facility] - Objective Vital Signs: Vital Signs Temperature 98.0 F 02/11/18 15:30 Pulse Rate 75 02/11/18 15:30 Respiratory Rate 20 02/11/18 09:00 Blood Pressure 145/59 02/11/18 15:30 O2 Sat by Pulse Oximetry (%) 99 02/11/18 09:00 Constitutional: Yes: Calm, Mild Distress Eyes: Yes: Conjunctiva Clear, EOM Intact. No: Diplopia HENT: Yes: Atraumatic, Normocephalic. No: Drooling Neck: Yes: Supple, Trachea Midline. No: Decreased ROM, Lymphadenopathy Cardiovascular: Yes: Regular Rate and Rhythm, S1, S2. No: Bradycardia, Tachycardia, JVD, Gallop Respiratory: Yes: Regular, CTA Bilaterally. No: Accessory Muscle Use Gastrointestinal: Yes: Normal Bowel Sounds, Soft, Abdomen, Obese. No: Ascites ...Rectal Exam: Yes: Deferred Genitourinary: No: Anuria, Bladder Distention, CVA Tenderness - Left, CVA Tenderness - Right Musculoskeletal: No: Joint Stiffness, Joint Swelling, Muscle Pain Extremities: Yes: Erythema (B/l pre-tibial.). No: Calf Tenderness, Cold Edema: Yes Edema: LLE: 1+, RLE: 1+ Wound/Incision: Yes: Other (right ankle wound is improving.) Neurological: Yes: Alert, Oriented. No: Aphasia, Cran Nerves II-XII Intact, Unsteady Gait, Weakness ...Motor Strength: WNL Psychiatric: Yes: WNL Labs: CBC, BMP 02/05/18 05:45 02/11/18 07:45 INR, PTT INR 1.01 (0.82-1.09) 02/06/18 06:00 Problem List - Problems (1) Venous stasis ulcer Assessment/Plan: IV Antibiotics as per Dr Manriquez. Local wound care- Code(s): I83.009 - VARICOSE VEINS OF UNSP LOWER EXTREMITY W ULCER OF UNSP SITE; L97.909 - NON-PRS CHRONIC ULC UNSP PRT OF UNSP LOW LEG W UNSP SEVERITY Qualifiers: Venous stasis ulcer site: ankle Laterality: right Non-pressure ulcer stage: with fat layer exposed (2) Venous insufficiency (chronic) (peripheral) Assessment/Plan: Dr Alvarenga f/u Code(s): I87.2 - VENOUS INSUFFICIENCY (CHRONIC) (PERIPHERAL) (3) CHF (congestive heart failure), NYHA class II Assessment/Plan: continue Spironolactone, Torsemide BID, [facility] Code(s): I50.9 - HEART FAILURE, UNSPECIFIED Qualifiers: Congestive heart failure type: diastolic
[2018-02-11] MEDS: ATORVASTATIN CA 10 MG TABLET (FP) PO SCH (21:08)
[2018-02-11] MEDS: MONTELUKAST NA 10 MG TABLET PO SCH (21:08)
[2018-02-11] MEDS: SENNOSIDES/DOCUSATE COMBO (SENNA PLUS) TABLET (UD) PO SCH (21:08)
[2018-02-12] MEDS ORDERED: PT OWN MED DRAWER 7, Y5N ONE (05:43)
[2018-02-12] MEDS: HEPARIN NA (PORCINE) 5,000 UNITS/ML 1ML VIAL SQ SCH ×3 (05:44→21:19)
[2018-02-12] MEDS: TORSEMIDE 10 MG TABLET PO SCH ×2 (05:45→13:44)
[2018-02-12] MEDS: PANTOPRAZOLE 40 MG TABLET (FP) PO SCH (09:31)
[2018-02-12] MEDS: POTASSIUM CHLORIDE TABS 10 MEQ TABLET.ER (FP) PO SCH (09:31)
[2018-02-12] MEDS: CHOLECALCIFEROL (VITAMIN D3) 1,000 UNIT TABLET (FP) PO SCH (09:31)
[2018-02-12] MEDS: SPIRONOLACTONE 25 MG TABLET (FP) PO SCH (09:31)
[2018-02-12] MEDS: ASPIRIN 81 MG CHEWABLE TABLETS PO SCH (09:31)
[2018-02-12] MEDS: LORATADINE 10 MG TABLET PO SCH (09:32)
[2018-02-12] MEDS: POLYETHYLENE GLYCOL 3350 119 GM BTL PO SCH (09:32)
[2018-02-12] MEDS: COLLAGENASE CLOSTRIDIUM HIST. 30 GRAMS TUBE TP SCH (09:33)
--- NOTE | 2018-02-12 12:06 | PN ---
Progress Note, Physician Chief Complaint: RLE wound is slowly improving. C/o LE pre-tibial edema. Demadex dose was increased to BID History of Present Illness: Non-healing ulcer of the right hill. HTN HFpEP HLD Asthma Intermittent diarrhea with guaiac positive stool Allergic rhinitis Obesity, s/p Lap band PSH BTL Opnen elsy umbilical hernia repair Lap band bariatric surgery - Current Medication List Current Medications: Active Medications Aspirin (Asa -) 81 mg PO DAILY [facility] Last Admin: 02/12/18 09:31 Dose: 81 mg Atorvastatin Calcium (Lipitor -) 10 mg PO HS [facility] Last Admin: 02/11/18 21:08 Dose: 10 mg Cholecalciferol (Vitamin D3 -) 5,000 unit PO DAILY [facility] Last Admin: 02/12/18 09:31 Dose: 5,000 unit Collagenase (Santyl -) 1 applic TP DAILY [facility] Last Admin: 02/12/18 09:33 Dose: 1 applic Heparin Sodium (Porcine) (Heparin -) 5,000 unit SQ TID [facility] Last Admin: 02/12/18 05:44 Dose: 5,000 unit Vancomycin HCl 1,500 mg/ (Dextrose) 500 mls @ 250 mls/hr IVPB Q24H [facility] PRN Reason: Protocol Last Admin: 02/11/18 14:28 Dose: 250 mls/hr Loratadine (Claritin -) 10 mg PO DAILY [facility] Last Admin: 02/12/18 09:32 Dose: 10 mg Montelukast Sodium (Singulair -) 10 mg PO HS [facility] Last Admin: 02/11/18 21:08 Dose: 10 mg Pantoprazole Sodium (Protonix -) 40 mg PO DAILY [facility] Last Admin: 02/12/18 09:31 Dose: 40 mg Polyethylene Glycol (Miralax (For Daily Use) -) 17 gm PO DAILY [facility] Last Admin: 02/12/18 09:32 Dose: 17 gm Potassium Chloride (K-Dur -) 10 meq PO DAILY [facility] Last Admin: 02/12/18 09:31 Dose: 10 meq Senna/Docusate Sodium (Pericolace -) 2 tablet PO HS [facility] Last Admin: 02/11/18 21:08 Dose: 2 tablet Spironolactone (Aldactone -) 25 mg PO DAILY [facility] Last Admin: 02/12/18 09:31 Dose: 25 mg Torsemide (Demadex -) 10 mg PO BIDLASIX [facility] Last Admin: 02/12/18 05:45 Dose: 10 mg - Objective Vital Signs: Vital Signs Temperature 98.1 F 02/12/18 10:00 Pulse Rate 84 02/12/18 10:00 Respiratory Rate 20 02/12/18 10:00 Blood Pressure 144/80 02/12/18 10:00 O2 Sat by Pulse Oximetry (%) 96 02/12/18 09:00 Constitutional: Yes: No Distress, Calm Eyes: Yes: Conjunctiva Clear, EOM Intact HENT: Yes: Atraumatic, Normocephalic. No: Drooling Neck: Yes: Supple, Trachea Midline. No: Decreased ROM, Lymphadenopathy Cardiovascular: Yes: Regular Rate and Rhythm, S1, S2. No: Bradycardia, Tachycardia Respiratory: Yes: Regular, CTA Bilaterally, SOB. No: Cough, Dullness Gastrointestinal: Yes: Normal Bowel Sounds, Soft, Abdomen, Obese. No: Ascites ...Rectal Exam: Yes: Deferred Genitourinary: No: Anuria Extremities: Yes: Other (Right ankle wound healing) Edema: Yes Edema: LLE: 1+, RLE: 1+ Wound/Incision: Yes: Other (wound right ankle without drainage) ...Motor Strength: WNL Psychiatric: Yes: Alert, Oriented. No: Agitated, Suicidal Ideation Labs: CBC, BMP 02/05/18 05:45 02/11/18 07:45 INR, PTT INR 1.01 (0.82-1.09) 02/06/18 06:00 Problem List - Problems (1) Venous stasis ulcer Assessment/Plan: IV Antibiotics as per Dr Manriquez. Local wound care- Code(s): I83.009 - VARICOSE VEINS OF UNSP LOWER EXTREMITY W ULCER OF UNSP SITE; L97.909 - NON-PRS CHRONIC ULC UNSP PRT OF UNSP LOW LEG W UNSP SEVERITY Qualifiers: Venous stasis ulcer site: ankle Laterality: right Non-pressure ulcer stage: with fat layer exposed (2) Venous insufficiency (chronic) (peripheral) Assessment/Plan: Dr Alvarenga f/u Code(s): I87.2 - VENOUS INSUFFICIENCY (CHRONIC) (PERIPHERAL) (3) CHF (congestive heart failure), NYHA class II Assessment/Plan: continue Spironolactone, Torsemide BID, [facility] Code(s): I50.9 - HEART FAILURE, UNSPECIFIED Qualifiers: Congestive heart failure type: diastolic
[2018-02-12] MEDS: VANCOMYCIN 1,500 MG in DEXTROSE 5%-WATER - 500 ML IVPB SCH (13:03)
--- NOTE | 2018-02-12 14:35 | PN ---
Progress Note, Physician History of Present Illness: stable no new issues receive iron transfusions no complaints - Current Medication List Current Medications: Active Medications Aspirin (Asa -) 81 mg PO DAILY [facility] Last Admin: 02/12/18 09:31 Dose: 81 mg Atorvastatin Calcium (Lipitor -) 10 mg PO HS [facility] Last Admin: 02/11/18 21:08 Dose: 10 mg Cholecalciferol (Vitamin D3 -) 5,000 unit PO DAILY [facility] Last Admin: 02/12/18 09:31 Dose: 5,000 unit Collagenase (Santyl -) 1 applic TP DAILY [facility] Last Admin: 02/12/18 09:33 Dose: 1 applic Heparin Sodium (Porcine) (Heparin -) 5,000 unit SQ TID [facility] Last Admin: 02/12/18 13:44 Dose: 5,000 unit Vancomycin HCl 1,500 mg/ (Dextrose) 500 mls @ 250 mls/hr IVPB Q24H [facility] PRN Reason: Protocol Last Admin: 02/12/18 13:03 Dose: 250 mls/hr Loratadine (Claritin -) 10 mg PO DAILY [facility] Last Admin: 02/12/18 09:32 Dose: 10 mg Montelukast Sodium (Singulair -) 10 mg PO HS [facility] Last Admin: 02/11/18 21:08 Dose: 10 mg Pantoprazole Sodium (Protonix -) 40 mg PO DAILY [facility] Last Admin: 02/12/18 09:31 Dose: 40 mg Polyethylene Glycol (Miralax (For Daily Use) -) 17 gm PO DAILY [facility] Last Admin: 02/12/18 09:32 Dose: 17 gm Potassium Chloride (K-Dur -) 10 meq PO DAILY [facility] Last Admin: 02/12/18 09:31 Dose: 10 meq Senna/Docusate Sodium (Pericolace -) 2 tablet PO HS [facility] Last Admin: 02/11/18 21:08 Dose: 2 tablet Spironolactone (Aldactone -) 25 mg PO DAILY [facility] Last Admin: 02/12/18 09:31 Dose: 25 mg Torsemide (Demadex -) 10 mg PO BIDLASIX [facility] Last Admin: 02/12/18 13:44 Dose: 10 mg - Objective Vital Signs: Vital Signs Temperature 98.1 F 02/12/18 14:00 Pulse Rate 74 02/12/18 14:00 Respiratory Rate 18 02/12/18 14:00 Blood Pressure 128/77 02/12/18 14:00 O2 Sat by Pulse Oximetry (%) 96 02/12/18 09:00 Constitutional: Yes: No Distress, Calm Respiratory: Yes: Regular, CTA Bilaterally Gastrointestinal: Yes: Normal Bowel Sounds, Soft Musculoskeletal: Yes: WNL Extremities: Yes: Other Wound/Incision: Yes: Dressing Dry and Intact, Other (healing well) Neurological: Yes: Alert, Oriented Psychiatric: Yes: Alert, Oriented Labs: CBC, BMP 02/05/18 05:45 02/11/18 07:45 INR, PTT INR 1.01 (0.82-1.09) 02/06/18 06:00 Assessment/Plan Problem List - Problems (1) Venous stasis ulcer Code(s): I83.009 - VARICOSE VEINS OF UNSP LOWER EXTREMITY W ULCER OF UNSP SITE; L97.909 - NON-PRS CHRONIC ULC UNSP PRT OF UNSP LOW LEG W UNSP SEVERITY Qualifiers: Venous stasis ulcer site: ankle Laterality: right Non-pressure ulcer stage: with fat layer exposed (2) Venous insufficiency (chronic) (peripheral) Code(s): I87.2 - VENOUS INSUFFICIENCY (CHRONIC) (PERIPHERAL) (3) Diarrhea Code(s): R19.7 - DIARRHEA, UNSPECIFIED (4) CHF (congestive heart failure), NYHA class II Code(s): I50.9 - HEART FAILURE, UNSPECIFIED Qualifiers: Congestive heart failure type: diastolic plan continue vanco will check vanco level tomorrow if patient continues to do well will switch to oral by or sunday continue as per gi wound care
[2018-02-12] MEDS: MONTELUKAST NA 10 MG TABLET PO SCH (21:19)
[2018-02-12] MEDS: SENNOSIDES/DOCUSATE COMBO (SENNA PLUS) TABLET (UD) PO SCH (21:19)
[2018-02-12] MEDS: ATORVASTATIN CA 10 MG TABLET (FP) PO SCH (21:19)
[2018-02-13] MEDS: HEPARIN NA (PORCINE) 5,000 UNITS/ML 1ML VIAL SQ SCH ×3 (06:39→20:59)
[2018-02-13] MEDS: TORSEMIDE 10 MG TABLET PO SCH ×2 (06:39→14:11)
--- NOTE | 2018-02-13 08:22 | PN ---
Progress Note, Physician Chief Complaint: lESS EDEMA le, FEELS BETTER History of Present Illness: Non-healing ulcer of the right hill. HTN HFpEP HLD Asthma Intermittent diarrhea with guaiac positive stool Allergic rhinitis Obesity, s/p Lap band PSH BTL Opnen elsy umbilical hernia repair Lap band bariatric surgery - Current Medication List Current Medications: Active Medications Aspirin (Asa -) 81 mg PO DAILY [facility] Last Admin: 02/12/18 09:31 Dose: 81 mg Atorvastatin Calcium (Lipitor -) 10 mg PO HS [facility] Last Admin: 02/12/18 21:19 Dose: 10 mg Cholecalciferol (Vitamin D3 -) 5,000 unit PO DAILY [facility] Last Admin: 02/12/18 09:31 Dose: 5,000 unit Collagenase (Santyl -) 1 applic TP DAILY [facility] Last Admin: 02/12/18 09:33 Dose: 1 applic Heparin Sodium (Porcine) (Heparin -) 5,000 unit SQ TID [facility] Last Admin: 02/13/18 06:39 Dose: 5,000 unit Vancomycin HCl 1,500 mg/ (Dextrose) 500 mls @ 250 mls/hr IVPB Q24H [facility]; Protocol Last Admin: 02/12/18 13:03 Dose: 250 mls/hr Loratadine (Claritin -) 10 mg PO DAILY [facility] Last Admin: 02/12/18 09:32 Dose: 10 mg Montelukast Sodium (Singulair -) 10 mg PO HS [facility] Last Admin: 02/12/18 21:19 Dose: 10 mg Pantoprazole Sodium (Protonix -) 40 mg PO DAILY [facility] Last Admin: 02/12/18 09:31 Dose: 40 mg Polyethylene Glycol (Miralax (For Daily Use) -) 17 gm PO DAILY [facility] Last Admin: 02/12/18 09:32 Dose: 17 gm Potassium Chloride (K-Dur -) 10 meq PO DAILY [facility] Last Admin: 02/12/18 09:31 Dose: 10 meq Senna/Docusate Sodium (Pericolace -) 2 tablet PO HS [facility] Last Admin: 02/12/18 21:19 Dose: 2 tablet Spironolactone (Aldactone -) 25 mg PO DAILY [facility] Last Admin: 02/12/18 09:31 Dose: 25 mg Torsemide (Demadex -) 10 mg PO BIDLASIX [facility] Last Admin: 02/13/18 06:39 Dose: 10 mg - Objective Vital Signs: Vital Signs Temperature 98.4 F 02/12/18 21:06 Pulse Rate 76 02/12/18 21:06 Respiratory Rate 20 02/12/18 21:06 Blood Pressure 117/50 02/12/18 21:06 O2 Sat by Pulse Oximetry (%) 96 02/12/18 21:00 Constitutional: Yes: No Distress, Calm. No: Anxious Eyes: Yes: Conjunctiva Clear, EOM Intact HENT: Yes: Normocephalic Cardiovascular: Yes: Regular Rate and Rhythm. No: Bradycardia Respiratory: Yes: Regular, CTA Bilaterally Gastrointestinal: Yes: Normal Bowel Sounds, Soft, Abdomen, Obese ...Rectal Exam: Yes: Deferred Genitourinary: No: Anuria, Bladder Distention Extremities: Yes: WNL Edema: Yes Edema: LLE: Trace, RLE: Trace Integumentary: Yes: Other (RIGHT UNCLE ULCER-HEALING) Neurological: Yes: WNL ...Motor Strength: WNL Psychiatric: Yes: WNL Labs: CBC, BMP 02/05/18 05:45 02/11/18 07:45 INR, PTT INR 1.01 (0.82-1.09) 02/06/18 06:00 Problem List - Problems (1) Venous stasis ulcer Assessment/Plan: IV Antibiotics as per Dr Manriquez. Local wound care- Code(s): I83.009 - VARICOSE VEINS OF UNSP LOWER EXTREMITY W ULCER OF UNSP SITE; L97.909 - NON-PRS CHRONIC ULC UNSP PRT OF UNSP LOW LEG W UNSP SEVERITY Qualifiers: Venous stasis ulcer site: ankle Laterality: right Non-pressure ulcer stage: with fat layer exposed (2) Venous insufficiency (chronic) (peripheral) Assessment/Plan: Dr Alvarenga f/u Code(s): I87.2 - VENOUS INSUFFICIENCY (CHRONIC) (PERIPHERAL) (3) CHF (congestive heart failure), NYHA class II Assessment/Plan: continue Spironolactone, Torsemide BID, KDUR Code(s): I50.9 - HEART FAILURE, UNSPECIFIED Qualifiers: Congestive heart failure type: diastolic (4) Diarrhea Assessment/Plan: CONSTIPATION/DIARRHEA WITH A SLOW COLONIC TRANSIT. nOW IMPROVED AFTER COLONOSCOPY Code(s): R19.7 - DIARRHEA, UNSPECIFIED Qualifiers: Diarrhea type: unspecified type Qualified Code(s): R19.7 - Diarrhea, unspecified
[2018-02-13] MEDS: LORATADINE 10 MG TABLET PO SCH (09:36)
[2018-02-13] MEDS: POLYETHYLENE GLYCOL 3350 119 GM BTL PO SCH (09:36)
[2018-02-13] MEDS: POTASSIUM CHLORIDE TABS 10 MEQ TABLET.ER (FP) PO SCH (09:36)
[2018-02-13] MEDS: ASPIRIN 81 MG CHEWABLE TABLETS PO SCH (09:36)
[2018-02-13] MEDS: PANTOPRAZOLE 40 MG TABLET (FP) PO SCH (09:36)
[2018-02-13] MEDS: CHOLECALCIFEROL (VITAMIN D3) 1,000 UNIT TABLET (FP) PO SCH (09:36)
[2018-02-13] MEDS: SPIRONOLACTONE 25 MG TABLET (FP) PO SCH (09:36)
[2018-02-13] MEDS: COLLAGENASE CLOSTRIDIUM HIST. 30 GRAMS TUBE TP SCH (09:38)
--- NOTE | 2018-02-13 13:46 | PN ---
Progress Note, Physician History of Present Illness: doing well no issues wound doing better - Current Medication List Current Medications: Active Medications Aspirin (Asa -) 81 mg PO DAILY [facility] Last Admin: 02/13/18 09:36 Dose: 81 mg Atorvastatin Calcium (Lipitor -) 10 mg PO HS [facility] Last Admin: 02/12/18 21:19 Dose: 10 mg Cholecalciferol (Vitamin D3 -) 5,000 unit PO DAILY [facility] Last Admin: 02/13/18 09:36 Dose: 5,000 unit Collagenase (Santyl -) 1 applic TP DAILY [facility] Last Admin: 02/13/18 09:38 Dose: 1 applic Heparin Sodium (Porcine) (Heparin -) 5,000 unit SQ TID [facility] Last Admin: 02/13/18 06:39 Dose: 5,000 unit Vancomycin HCl 1,500 mg/ (Dextrose) 500 mls @ 250 mls/hr IVPB Q24H [facility]; Protocol Last Admin: 02/12/18 13:03 Dose: 250 mls/hr Loratadine (Claritin -) 10 mg PO DAILY [facility] Last Admin: 02/13/18 09:36 Dose: 10 mg Montelukast Sodium (Singulair -) 10 mg PO HS [facility] Last Admin: 02/12/18 21:19 Dose: 10 mg Pantoprazole Sodium (Protonix -) 40 mg PO DAILY [facility] Last Admin: 02/13/18 09:36 Dose: 40 mg Polyethylene Glycol (Miralax (For Daily Use) -) 17 gm PO DAILY [facility] Last Admin: 02/13/18 09:36 Dose: 17 gm Potassium Chloride (K-Dur -) 10 meq PO DAILY [facility] Last Admin: 02/13/18 09:36 Dose: 10 meq Senna/Docusate Sodium (Pericolace -) 2 tablet PO HS [facility] Last Admin: 02/12/18 21:19 Dose: 2 tablet Spironolactone (Aldactone -) 25 mg PO DAILY [facility] Last Admin: 02/13/18 09:36 Dose: 25 mg Torsemide (Demadex -) 10 mg PO BIDLASIX [facility] Last Admin: 02/13/18 06:39 Dose: 10 mg - Objective Vital Signs: Vital Signs Temperature 97.8 F 02/13/18 10:00 Pulse Rate 94 H 02/13/18 10:00 Respiratory Rate 20 02/13/18 10:00 Blood Pressure 148/72 02/13/18 10:00 O2 Sat by Pulse Oximetry (%) 95 02/13/18 09:00 Constitutional: Yes: No Distress, Calm Cardiovascular: Yes: Regular Rate and Rhythm Gastrointestinal: Yes: Normal Bowel Sounds, Soft Extremities: Yes: WNL Edema: LLE: Trace, RLE: Trace Wound/Incision: Yes: Clean/Dry, Dressing Dry and Intact, Dressing Removed Neurological: Yes: Alert, Oriented Psychiatric: Yes: Alert, Oriented Labs: CBC, BMP 02/05/18 05:45 02/11/18 07:45 INR, PTT INR 1.01 (0.82-1.09) 02/06/18 06:00 Assessment/Plan Problem List - Problems (1) Venous stasis ulcer Code(s): I83.009 - VARICOSE VEINS OF UNSP LOWER EXTREMITY W ULCER OF UNSP SITE; L97.909 - NON-PRS CHRONIC ULC UNSP PRT OF UNSP LOW LEG W UNSP SEVERITY Qualifiers: Venous stasis ulcer site: ankle Laterality: right Non-pressure ulcer stage: with fat layer exposed (2) Venous insufficiency (chronic) (peripheral) Code(s): I87.2 - VENOUS INSUFFICIENCY (CHRONIC) (PERIPHERAL) (3) Diarrhea Code(s): R19.7 - DIARRHEA, UNSPECIFIED (4) CHF (congestive heart failure), NYHA class II Code(s): I50.9 - HEART FAILURE, UNSPECIFIED Qualifiers: Congestive heart failure type: diastolic plan continue current management after tomorrows vanco dose can be switched to oral rest as per the team
[2018-02-13] MEDS: VANCOMYCIN 1,500 MG in DEXTROSE 5%-WATER - 500 ML IVPB SCH (15:18)
[2018-02-13] MEDS: SENNOSIDES/DOCUSATE COMBO (SENNA PLUS) TABLET (UD) PO SCH (20:59)
[2018-02-13] MEDS: ATORVASTATIN CA 10 MG TABLET (FP) PO SCH (20:59)
[2018-02-13] MEDS: MONTELUKAST NA 10 MG TABLET PO SCH (20:59)
[2018-02-14] MEDS ORDERED: PT OWN MED DRAWER 7, Y5N ONE (06:09)
[2018-02-14] MEDS: TORSEMIDE 10 MG TABLET PO SCH ×2 (06:11→14:22)
[2018-02-14] MEDS: HEPARIN NA (PORCINE) 5,000 UNITS/ML 1ML VIAL SQ SCH ×2 (06:11→14:22)
[2018-02-14 06:24] VITALS: PULSE 76
--- NOTE | 2018-02-14 07:07 | PN ---
Progress Note, Physician Chief Complaint: Remains comfortable in bed. Completed 10 days of IV Vanco No significant change in wound appearance History of Present Illness: Non-healing ulcer of the right hill. HTN HFpEP HLD Asthma Intermittent diarrhea with guaiac positive stool Allergic rhinitis Obesity, s/p Lap band PSH BTL Opnen elsy umbilical hernia repair Lap band bariatric surgery - Current Medication List Current Medications: Active Medications Aspirin (Asa -) 81 mg PO DAILY [facility] Last Admin: 02/13/18 09:36 Dose: 81 mg Atorvastatin Calcium (Lipitor -) 10 mg PO HS [facility] Last Admin: 02/13/18 20:59 Dose: 10 mg Cholecalciferol (Vitamin D3 -) 5,000 unit PO DAILY [facility] Last Admin: 02/13/18 09:36 Dose: 5,000 unit Collagenase (Santyl -) 1 applic TP DAILY [facility] Last Admin: 02/13/18 09:38 Dose: 1 applic Heparin Sodium (Porcine) (Heparin -) 5,000 unit SQ TID [facility] Last Admin: 02/14/18 06:11 Dose: 5,000 unit Vancomycin HCl 1,500 mg/ (Dextrose) 500 mls @ 250 mls/hr IVPB Q24H [facility]; Protocol Last Admin: 02/13/18 15:18 Dose: 250 mls/hr Loratadine (Claritin -) 10 mg PO DAILY [facility] Last Admin: 02/13/18 09:36 Dose: 10 mg Montelukast Sodium (Singulair -) 10 mg PO HS [facility] Last Admin: 02/13/18 20:59 Dose: 10 mg Pantoprazole Sodium (Protonix -) 40 mg PO DAILY [facility] Last Admin: 02/13/18 09:36 Dose: 40 mg Polyethylene Glycol (Miralax (For Daily Use) -) 17 gm PO DAILY [facility] Last Admin: 02/13/18 09:36 Dose: 17 gm Potassium Chloride (K-Dur -) 10 meq PO DAILY [facility] Last Admin: 02/13/18 09:36 Dose: 10 meq Senna/Docusate Sodium (Pericolace -) 2 tablet PO HS [facility] Last Admin: 02/13/18 20:59 Dose: 2 tablet Spironolactone (Aldactone -) 25 mg PO DAILY [facility] Last Admin: 02/13/18 09:36 Dose: 25 mg Torsemide (Demadex -) 10 mg PO BIDLASIX [facility] Last Admin: 02/14/18 06:11 Dose: 10 mg - Objective Vital Signs: Vital Signs Temperature 97.6 F 02/14/18 06:00 Pulse Rate 76 02/14/18 06:00 Respiratory Rate 20 02/14/18 06:00 Blood Pressure 144/71 02/14/18 06:00 O2 Sat by Pulse Oximetry (%) 95 02/13/18 21:00 Constitutional: Yes: No Distress, Calm. No: Anxious Eyes: Yes: Conjunctiva Clear, EOM Intact HENT: Yes: Atraumatic, Normocephalic. No: Drooling Neck: Yes: Supple, Trachea Midline Cardiovascular: Yes: Regular Rate and Rhythm. No: Bradycardia, Tachycardia Respiratory: Yes: Regular, CTA Bilaterally Gastrointestinal: Yes: Normal Bowel Sounds, Soft, Abdomen, Obese. No: Ascites, Distention ...Rectal Exam: Yes: Deferred Genitourinary: No: Anuria, Bladder Distention Musculoskeletal: No: Joint Stiffness, Joint Swelling, Muscle Pain Extremities: Yes: Amputation. No: Calf Tenderness, Cold, Cyanosis Edema: Yes Edema: LLE: Trace, RLE: Trace Integumentary: Yes: Venous Stasis Changes (B/L) Wound/Incision: Yes: Other. No: Draining, Reddened (dry ankle wound) ...Motor Strength: WNL Psychiatric: Yes: WNL Labs: CBC, BMP 02/05/18 05:45 02/11/18 07:45 INR, PTT INR 1.01 (0.82-1.09) 02/06/18 06:00 Problem List - Problems (1) Venous stasis ulcer Assessment/Plan: 10 days course of IV Antibiotics as per Dr Manriquez. Local wound care-as out pt in wound care center. 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 is likely Code(s): I83.009 - VARICOSE VEINS OF UNSP LOWER EXTREMITY W ULCER OF UNSP SITE; L97.909 - NON-PRS CHRONIC ULC UNSP PRT OF UNSP LOW LEG W UNSP SEVERITY Qualifiers: Venous stasis ulcer site: ankle Laterality: right Non-pressure ulcer stage: with fat layer exposed (2) Venous insufficiency (chronic) (peripheral) Assessment/Plan: Dr Alvarenga f/u and compression stocking advised Code(s): I87.2 - VENOUS INSUFFICIENCY (CHRONIC) (PERIPHERAL) (3) CHF (congestive heart failure), NYHA class II Assessment/Plan: continue Spironolactone, Torsemide BID, KDUR F/U as outpt in the office Code(s): I50.9 - HEART FAILURE, UNSPECIFIED Qualifiers: Congestive heart failure type: diastolic
--- NOTE | 2018-02-14 07:15 | DS ---
Physical Examination Vital Signs: Vital Signs Temperature 97.6 F 02/14/18 06:00 Pulse Rate 76 02/14/18 06:00 Respiratory Rate 20 02/14/18 06:00 Blood Pressure 144/71 02/14/18 06:00 O2 Sat by Pulse Oximetry (%) 95 02/13/18 21:00 Constitutional: Yes: No Distress, Calm. No: Anxious Eyes: Yes: Conjunctiva Clear, EOM Intact HENT: Yes: Atraumatic. No: Drooling Neck: Yes: Supple, Trachea Midline Cardiovascular: Yes: Regular Rate and Rhythm. No: Bradycardia, Tachycardia Respiratory: Yes: Regular, CTA Bilaterally Gastrointestinal: Yes: Normal Bowel Sounds, Soft, Abdomen, Obese ...Rectal Exam: Yes: Deferred Renal/: Yes: WNL Breast(s): Yes: WNL Musculoskeletal: No: Back Pain, Joint Stiffness Extremities: No: Amputation, Calf Tenderness, Cold, Cyanosis Edema: No Integumentary: Yes: Venous Stasis Changes Wound/Incision: Yes: Other (Right ankle wound) ...Motor Strength: WNL Psychiatric: Yes: WNL Labs: CBC, BMP 02/05/18 05:45 02/11/18 07:45 Discharge Summary Reason For Visit: CHRONIC SKIN ULCER, MRSA Current Active Problems Anemia (Acute) CHF (congestive heart failure), NYHA class II (Acute) Constipation by delayed colonic transit (Acute) Diverticula of colon (Acute) Duodenitis (Acute) Family history of colon cancer in mother (Acute) Non-healing ulcer (Acute) Condition: Stable - Instructions Referrals: Moises Kimbrough MD [Primary Care Provider] - Disposition: HOME - Home Medications Comprehensive Discharge Medication List: Ambulatory Orders Aspirin [ASA] 81 mg PO DAILY 05/21/12 Docosahexanoic Acid/Epa [Fish Oil Softgel] 1 cap PO DAILY 05/21/12 Vitamin E 1 cap PO DAILY 05/21/12 Vitamin B Complex 1 each PO DAILY 02/04/13 Spironolactone [Aldactone] 25 mg PO DAILY 03/18/13 Cholecalciferol (Vitamin D3) [Vitamin D] 5,000 unit PO DAILY 07/02/13 Hydrocodone Bit/Acetaminophen [Vicodin 5-500mg Tablet -] 1 tab PO Q6H PRN Magnesium Amino Acid Chelate [Magnesium] 100 mg PO DAILY 07/02/13 Docusate Sodium [Colace -] 100 mg PO BID 07/03/13 Famotidine [Pepcid -] 20 mg PO DAILY 07/03/13 Montelukast Na [Singulair -] 10 mg PO HS #0 tablet 07/07/13 Pantoprazole Sodium [Protonix -] 40 mg PO DAILY #0 tablet.ec 07/07/13 Sennosides/Docusate Sodium [Pericolace -] 2 each PO HS #0 tablet 07/07/13 Lipitor 10 mg PO HS 12/17/17
[2018-02-14 08:32] VITALS: BP 128/75; TEMP 97.5
[2018-02-14] MEDS: LORATADINE 10 MG TABLET PO SCH (09:15)
[2018-02-14] MEDS: PANTOPRAZOLE 40 MG TABLET (FP) PO SCH (09:15)
[2018-02-14] MEDS: ASPIRIN 81 MG CHEWABLE TABLETS PO SCH (09:15)
[2018-02-14] MEDS: CHOLECALCIFEROL (VITAMIN D3) 1,000 UNIT TABLET (FP) PO SCH (09:15)
[2018-02-14] MEDS: SPIRONOLACTONE 25 MG TABLET (FP) PO SCH (09:15)
[2018-02-14] MEDS: POTASSIUM CHLORIDE TABS 10 MEQ TABLET.ER (FP) PO SCH (09:15)
[2018-02-14] MEDS: POLYETHYLENE GLYCOL 3350 119 GM BTL PO SCH (09:22)
[2018-02-14] MEDS: COLLAGENASE CLOSTRIDIUM HIST. 30 GRAMS TUBE TP SCH (09:23)
--- NOTE | 2018-02-14 11:57 | PN ---
Progress Note, Physician History of Present Illness: stable no complaints patient doing well wound healing well - Current Medication List Current Medications: Active Medications Aspirin (Asa -) 81 mg PO DAILY [facility] Last Admin: 02/14/18 09:15 Dose: 81 mg Atorvastatin Calcium (Lipitor -) 10 mg PO HS [facility] Last Admin: 02/13/18 20:59 Dose: 10 mg Cholecalciferol (Vitamin D3 -) 5,000 unit PO DAILY [facility] Last Admin: 02/14/18 09:15 Dose: 5,000 unit Collagenase (Santyl -) 1 applic TP DAILY [facility] Last Admin: 02/14/18 09:23 Dose: 1 applic Heparin Sodium (Porcine) (Heparin -) 5,000 unit SQ TID [facility] Last Admin: 02/14/18 06:11 Dose: 5,000 unit Vancomycin HCl 1,500 mg/ (Dextrose) 500 mls @ 250 mls/hr IVPB Q24H [facility]; Protocol Last Admin: 02/13/18 15:18 Dose: 250 mls/hr Loratadine (Claritin -) 10 mg PO DAILY [facility] Last Admin: 02/14/18 09:15 Dose: 10 mg Montelukast Sodium (Singulair -) 10 mg PO HS [facility] Last Admin: 02/13/18 20:59 Dose: 10 mg Pantoprazole Sodium (Protonix -) 40 mg PO DAILY [facility] Last Admin: 02/14/18 09:15 Dose: 40 mg Polyethylene Glycol (Miralax (For Daily Use) -) 17 gm PO DAILY [facility] Last Admin: 02/14/18 09:22 Dose: 17 gm Potassium Chloride (K-Dur -) 10 meq PO DAILY [facility] Last Admin: 02/14/18 09:15 Dose: 10 meq Senna/Docusate Sodium (Pericolace -) 2 tablet PO HS [facility] Last Admin: 02/13/18 20:59 Dose: 2 tablet Spironolactone (Aldactone -) 25 mg PO DAILY [facility] Last Admin: 02/14/18 09:15 Dose: 25 mg Torsemide (Demadex -) 10 mg PO BIDLASIX [facility] Last Admin: 02/14/18 06:11 Dose: 10 mg - Objective Vital Signs: Vital Signs Temperature 97.5 F L 02/14/18 08:00 Pulse Rate 76 02/14/18 08:00 Respiratory Rate 20 02/14/18 08:00 Blood Pressure 128/75 02/14/18 08:00 O2 Sat by Pulse Oximetry (%) 95 02/13/18 21:00 Constitutional: Yes: No Distress, Calm Cardiovascular: Yes: Regular Rate and Rhythm Respiratory: Yes: Regular, CTA Bilaterally Gastrointestinal: Yes: Normal Bowel Sounds, Soft Musculoskeletal: Yes: WNL Extremities: Yes: WNL Neurological: Yes: Alert, Oriented Psychiatric: Yes: Alert, Oriented Labs: CBC, BMP 02/05/18 05:45 02/11/18 07:45 INR, PTT INR 1.01 (0.82-1.09) 02/06/18 06:00 Assessment/Plan Problem List - Problems (1) Venous stasis ulcer Code(s): I83.009 - VARICOSE VEINS OF UNSP LOWER EXTREMITY W ULCER OF UNSP SITE; L97.909 - NON-PRS CHRONIC ULC UNSP PRT OF UNSP LOW LEG W UNSP SEVERITY Qualifiers: Venous stasis ulcer site: ankle Laterality: right Non-pressure ulcer stage: with fat layer exposed (2) Venous insufficiency (chronic) (peripheral) Code(s): I87.2 - VENOUS INSUFFICIENCY (CHRONIC) (PERIPHERAL) (3) Diarrhea Code(s): R19.7 - DIARRHEA, UNSPECIFIED (4) CHF (congestive heart failure), NYHA class II Code(s): I50.9 - HEART FAILURE, UNSPECIFIED Qualifiers: Congestive heart failure type: diastolic plan continue current management patient stable oral abx on discharge follow up in wound care
[2018-02-14] MEDS: VANCOMYCIN 1,500 MG in DEXTROSE 5%-WATER - 500 ML IVPB SCH (12:30)
== END 2018-02-14 17:48 | disposition home or self-care (01) | DRG 593 ==
LOC: JER 12:13 → JERBED 16:45 → OBSVTOIN 17:24 → J4S 02-05 02:24 → J6S 02-09 19:24
PROVIDERS: ADMIT Internal Medicine; ATTEND Internal Medicine
PROC: 0DBP8ZX Excision of Rectum, Via Natural or Artificial Opening Endoscopic, Diagnostic (ICD-10-PCS; 2018-02-08)
PROC: 0DD98ZX Extraction of Duodenum, Via Natural or Artificial Opening Endoscopic, Diagnostic (ICD-10-PCS; 2018-02-08)
PROC: 0DB68ZX Excision of Stomach, Via Natural or Artificial Opening Endoscopic, Diagnostic (ICD-10-PCS; 2018-02-08)
PROC: 0DDH8ZX Extraction of Cecum, Via Natural or Artificial Opening Endoscopic, Diagnostic (ICD-10-PCS; 2018-02-08)
PROC: 0DBN8ZX Excision of Sigmoid Colon, Via Natural or Artificial Opening Endoscopic, Diagnostic (ICD-10-PCS; principal; 2018-02-08 14:00)
DX: L97.919 Non-pressure chronic ulcer of unspecified part of right lower leg with unspecified severity (principal); Z68.42 Body mass index [BMI] 45.0-49.9, adult; I50.30 Unspecified diastolic (congestive) heart failure; K62.5 Hemorrhage of anus and rectum; I87.2 Venous insufficiency (chronic) (peripheral); I83.009 Varicose veins of unspecified lower extremity with ulcer of unspecified site; K29.80 Duodenitis without bleeding; E66.9 Obesity, unspecified; A49.02 Methicillin resistant Staphylococcus aureus infection, unspecified site; K57.30 Diverticulosis of large intestine without perforation or abscess without bleeding; K31.7 Polyp of stomach and duodenum; K62.1 Rectal polyp; K63.5 Polyp of colon; D64.9 Anemia, unspecified; K59.01 Slow transit constipation; E78.5 Hyperlipidemia, unspecified
CPT/HCPCS: 36415; 73590-TC-RT-FY; 76700-TC; 80048; 80053; 80061; 82172; 82247; 82272; 82465; 82728; 82947; 82977; 83010; 83036; 83516; 83540; 83550; 83721; 83735; 83883; 84100; 84450; 84460; 84478; 85025; 85044; 85610; 86038; 86704; 86706; 86708; 87040; 87045; 87046; 87177; 87186; 87205; 87209; 87324; 87340; 87449; 88305-TC; 99283-25; G0378; G0480; J1644; J1756

== ENCOUNTER 2019-11-04 17:00 | Inpatient (IN) | payer BC, OTHER ==
--- NOTE | 2019-11-04 17:15 | PDOC ---
Rapid Medical Evaluation Time Seen by Provider: 11/04/19 17:12 Medical Evaluation: Allergies Allergy/AdvReac Type Severity Reaction Status Date / Time codeine [Codeine] Allergy Unknown Verified 07/01/18 10:01 latex [Latex] Allergy Unknown Verified 07/01/18 10:01 silver sulfadiazine Allergy Unknown Verified 07/01/18 10:01 [From Silvadene] Sulfa (Sulfonamide Allergy Unknown Verified 07/01/18 10:01 Antibiotics) bacitracin [From Neosporin] Allergy Verified 07/01/18 10:01 bacitracin zinc Allergy Verified 07/01/18 10:01 [From Neosporin] benzalkonium chloride Allergy Verified 07/01/18 10:01 [From Neosporin] gramicidin D [From Neosporin] Allergy Verified 07/01/18 10:01 neomycin sulfate Allergy Verified 07/01/18 10:01 [From Neosporin] piperacillin Allergy Verified 07/01/18 10:01 polymyxin B [From Neosporin] Allergy Verified 07/01/18 10:01 polymyxin B sulfate Allergy Verified 07/01/18 10:01 [From Neosporin] POWDER Allergy Intermediate WHEEZING Uncoded 07/01/18 10:01 TRIDE Allergy Intermediate Uncoded 07/01/18 10:01 CODIENE Allergy Mild Itching Uncoded 07/01/18 10:01 LATEX Allergy Uncoded 07/01/18 10:01 SILVADENE Allergy Uncoded 07/01/18 10:01 SULFA Allergy Uncoded 07/01/18 10:01 FRAGRANCES AdvReac Intermediate WHEEZING Uncoded 07/01/18 10:01 lactose intolerance AdvReac Uncoded 07/01/18 10:01 11/04/19 17:12 Pt presents to the ER for Cellulitis to the R thigh. Sent in by Dr. Kimbrough for admission Exam: cellulitis R medial thigh. Ambulatory Orders: labs, IV insert Pt to proceed to the ER for further evaluation Discharge Disposition - Diagnosis Cellulitis Qualifiers: Site of cellulitis: extremity Site of cellulitis of extremity: lower extremity Laterality: right Qualified Code(s): L03.115 - Cellulitis of right lower limb - Referrals - Patient Instructions - Post Discharge Activity
[2019-11-04 17:52] LABS: BASO % 0.6 % (0-2.0); EOS % 0.3 % (0-4.5); HEMATOCRIT 38.2 % (32.4-45.2); HEMOGLOBIN 12.9 GM/dL (10.7-15.3); LYMPH % 22.8 % (8-40); MCH 28.9 pg (25.7-33.7); MCHC 33.7 g/dl (32.0-36.0); MEAN CELL VOLUME 85.8 fl (80-96); MONO % 9.1 % (3.8-10.2); NEUT % 67.2 % (42.8-82.8); PLATELET COUNT 111 K/MM3 (134-434); RBC 4.46 M/mm3 (3.60-5.2); RDW 15.8 % (11.6-15.6); WHITE BLOOD COUNT 5.3 K/mm3 (4.0-10.0)
[2019-11-04 17:55] LABS: EPI CELLS 10.4 /HPF (0-5/HPF); HYALINE CASTS 17 /lpf (0-8); URINE APPEARANCE CLOUDY; URINE BACTERIA 8.9 /hpf (NEGATIVE); URINE BILIRUBIN NEGATIVE (NEGATIVE); URINE COLOR DK YELLOW; URINE GLUCOSE (UA) NEGATIVE (NEGATIVE); URINE KETONE TRACE (NEGATIVE); URINE LEUK ESTERASE 2+ (NEGATIVE); URINE NITRITE NEGATIVE (NEGATIVE); URINE PROTEIN 2+ (NEGATIVE); URINE RBC 6 /hpf (0-4); URINE WBC 20 /hpf (0-5)
[2019-11-04 18:25] LABS: ALBUMIN 3.4 g/dl (3.4-5.0); BILIRUBIN,TOTAL 0.9 mg/dL (0.2-1); BLOOD UREA NITROGEN 20.7 mg/dL (7-18); CALCIUM 8.9 mg/dL (8.5-10.1); CREATININE 0.7 mg/dL (0.55-1.3); POTASSIUM 3.3 mmol/L (3.5-5.1)
--- NOTE | 2019-11-04 18:38 | PDOC ---
History of Present Illness - General Chief Complaint: Wound Stated Complaint: EVALUATION Time Seen by Provider: 11/04/19 17:12 - History of Present Illness Initial Comments: The pt is a 64F w/ a history of CHF, HTN, anemia, s/p gastric band, RLE wound ( healing) who presents for evaluation/admission for cellulitis. Pt noted worsening redness and pain of her right hill. Endorses associated lethargy. Denies fevers, SOUTH, vision changes, chest pain, SOB, abdominal pain, N/V/C/D, dysuria. Pt was called today to present for admission 11/04/19 18:42 Past History - Past Medical History Allergies/Adverse Reactions: Allergies Allergy/AdvReac Type Severity Reaction Status Date / Time codeine [Codeine] Allergy Unknown Verified 11/04/19 17:12 latex [Latex] Allergy Unknown Verified 11/04/19 17:12 silver sulfadiazine Allergy Unknown Verified 11/04/19 17:12 [From Silvadene] Sulfa (Sulfonamide Allergy Unknown Verified 11/04/19 17:12 Antibiotics) bacitracin [From Neosporin] Allergy Verified 11/04/19 17:12 bacitracin zinc Allergy Verified 11/04/19 17:12 [From Neosporin] benzalkonium chloride Allergy Verified 11/04/19 17:12 [From Neosporin] gramicidin D [From Neosporin] Allergy Verified 11/04/19 17:12 neomycin sulfate Allergy Verified 11/04/19 17:12 [From Neosporin] piperacillin Allergy Verified 11/04/19 17:12 polymyxin B [From Neosporin] Allergy Verified 11/04/19 17:12 polymyxin B sulfate Allergy Verified 11/04/19 17:12 [From Neosporin] POWDER Allergy Intermediate WHEEZING Uncoded 11/04/19 17:12 TRIDE Allergy Intermediate Uncoded 11/04/19 17:12 CODIENE Allergy Mild Itching Uncoded 11/04/19 17:12 LATEX Allergy Uncoded 11/04/19 17:12 SILVADENE Allergy Uncoded 11/04/19 17:12 SULFA Allergy Uncoded 11/04/19 17:12 FRAGRANCES AdvReac Intermediate WHEEZING Uncoded 11/04/19 17:12 lactose intolerance AdvReac Uncoded 11/04/19 17:12 Home Medications: Ambulatory Orders Aspirin [ASA -] 81 mg PO DAILY 05/21/12 Docosahexanoic Acid/Epa [Fish Oil Softgel] 1 cap PO DAILY 05/21/12 Vitamin E 1 cap PO DAILY 05/21/12 Vitamin B Complex 1 each PO DAILY 02/04/13 Spironolactone [Aldactone -] 25 mg PO DAILY 03/18/13 Cholecalciferol (Vitamin D3) [Vitamin D] 5,000 unit PO DAILY 07/02/13 Magnesium Amino Acid Chelate [Magnesium] 100 mg PO DAILY 07/02/13 Docusate Sodium [Colace -] 100 mg PO BID 07/03/13 Famotidine [Pepcid -] 20 mg PO DAILY 07/03/13 Montelukast Na [Singulair -] 10 mg PO HS #0 tablet 07/07/13 Sennosides/Docusate Sodium [Pericolace -] 2 each PO HS #0 tablet 07/07/13 Lipitor 10 mg PO HS 12/17/17 Torsemide [Demadex -] 10 mg PO BIDLASIX tablet 02/14/18 Albuterol Sulfate [Proair Hfa] 1 puff IH PRN PRN 02/10/19 Mometasone Furoate [Asmanex Hfa] 1 puff IH DAILY 02/10/19 Tiotropium Br/Olodaterol HCl [Stiolto Respimat Inhal [place]] 2.5 mg IH HS Anemia: No Asthma: Yes Cancer: No Cardiac Disorders: Yes (hx of frequent palpitations) CVA: No COPD: Yes CHF: No Dementia: No Diabetes: No GI Disorders: Yes (IBS) Disorders: No HTN: Yes Hypercholesterolemia: Yes Liver Disease: No Seizures: No Thyroid Disease: No - Surgical History Abdominal Surgery: Yes (HERNIA REPAIR,LAP BAND) Appendectomy: No Cardiac Surgery: No Cholecystectomy: Yes Lung Surgery: No Neurologic Surgery: No Orthopedic Surgery: Yes (RT.TOTAL HIP REPLACEMENT.) - Psycho Social/Smoking Cessation Hx Smoking Status: Yes Smoking History: Never smoked Have you smoked in the past 12 months: No Number of Cigarettes Smoked Daily: 0 If you are a former smoker, when did you quit?: 1997 Information on smoking cessation initiated: No Hx Alcohol Use: No Drug/Substance Use Hx: No Substance Use Type: None Hx Substance Use Treatment: No Review of Systems - Review of Systems Able to Perform ROS?: Yes Comments:: GENERAL/CONSTITUTIONAL: No fever or chills. No weakness HEAD, EYES, EARS, NOSE AND THROAT: No change in vision. No change in hearing. No sore throat CARDIOVASCULAR: No chest pain or shortness of breath RESPIRATORY: Denies cough, hemoptysis GASTROINTESTINAL: No nausea, vomiting, diarrhea or constipation GENITOURINARY: No dysuria, frequency, or change in urination MUSCULOSKELETAL: No joint or muscle swelling or pain. No neck or back pain SKIN: RLE redness NEUROLOGIC: No headache, vertigo, loss of consciousness, or change in strength/ sensation ENDOCRINE: No increased thirst. No abnormal weight change HEMATOLOGIC/LYMPHATIC: No anemia, easy bleeding, or history of blood clots ALLERGIC/IMMUNOLOGIC: No hives or skin allergy 11/04/19 18:37 Is the patient limited Romanian proficient: No *Physical Exam - Vital Signs Last Vital Signs Temp Pulse Resp BP Pulse Ox 97.6 F 95 H 18 141/69 92 L 11/04/19 17:13 11/04/19 17:13 11/04/19 17:13 11/04/19 17:13 11/04/19 17:13 - Physical Exam GENERAL: Awake, alert, and oriented to person/place/time, in no acute distress HEAD: No signs of trauma, normocephalic, atraumatic EYES: PERRLA, EOMI, sclera anicteric, conjunctiva clear ENT: Hearing grossly normal, nares patent, oropharynx clear without exudates. Moist mucosa LUNGS: No distress, speaks in full sentences, clear to auscultation bilaterally HEART: Regular rate and rhythm, normal S1 and S2, no murmurs appreciated, peripheral pulses normal and equal bilaterally ABDOMEN: Soft, protuberant, NTTP, normoactive bowel sounds. No guarding, no rebound EXTREMITIES: Normal inspection, Normal range of motion, no edema. No clubbing or cyanosis NEUROLOGICAL: Cranial nerves II through XII grossly intact. Normal speech, normal gait, no focal sensorimotor deficits SKIN: R anterior hill healing wound with surrounding erythema and warmth w/o underlying fluctuance 11/04/19 18:37 ED Treatment Course - LABORATORY CBC & Chemistry Diagram: 11/04/19 17:35 11/04/19 17:35 - ADDITIONAL ORDERS Additional order review: Laboratory Results 11/04/19 11/04/19 17:35 17:35 Sodium 143 Potassium 3.3 L Chloride 106 Carbon Dioxide 27 Anion Gap 10 BUN 20.7 H Creatinine 0.7 Est GFR (CKD-EPI)AfAm 107.62 Est GFR (CKD-EPI)NonAf 92.86 Random Glucose 100 Calcium 8.9 Total Bilirubin 0.9 AST 23 ALT 22 Alkaline Phosphatase 84 Total Protein 7.0 Albumin 3.4 Urine Color Dk yellow Urine Appearance Cloudy Urine pH 5.0 Ur Specific [place] 1.034 Urine Protein 2+ H Urine Glucose (UA) Negative Urine Ketones Trace H Urine Blood 2+ H Urine Nitrite Negative Urine Bilirubin Negative Urine Urobilinogen 1.0 Ur Leukocyte Esterase 2+ H Urine WBC (Auto) 20 Urine RBC (Auto) 6 Urine Casts (Auto) 17 U Epithel Cells (Auto) 10.4 Urine Bacteria (Auto) 8.9 11/04/19 17:35 RBC 4.46 MCV 85.8 MCHC 33.7 RDW 15.8 H MPV 9.0 Neutrophils % 67.2 D Lymphocytes % 22.8 D Monocytes % 9.1 Eosinophils % 0.3 D Basophils % 0.6 Medical Decision Making - Medical Decision Making The pt is a 64F w/ a history of CHF, HTN, anemia, s/p gastric band, RLE wound ( healing) who presents for evaluation/admission for cellulitis. ED Course Labs and cultures sent Will give Vanc and Clinda Plan for admission for IV abx Pt discussed with Dr. Kimbrough, will admit to his service and place consult for Dr. Hernández CXR w/o PNA/PNX/effusion No leukocytosis No anemia Lytes overall unremarkable No JULIA LFTs wnl 11/04/19 20:44 Discharge - Discharge Information Problems reviewed: Yes Clinical Impression/Diagnosis: Cellulitis Qualifiers: Site of cellulitis: extremity Site of cellulitis of extremity: lower extremity Laterality: right Qualified Code(s): L03.115 - Cellulitis of right lower limb Condition: Stable - Admission Yes - Follow up/Referral - Patient Discharge Instructions - Post Discharge Activity
[2019-11-04] MEDS ORDERED: VANCOMYCIN 1 GM in D5W (PRE-DOCKED) 1,000 MG/250 ML IVPB ONE (18:41)
[2019-11-04] MEDS ORDERED: VANCOMYCIN 1 GRAM (PRE-DOCKED) 1,000 MG/250 ML BAG IVPB ONE (19:02)
[2019-11-04] MEDS ORDERED: CLINDAMYCIN 600MG PREMIX IVPB 600 MG/50 ML BAG IVPB ONE ×2 (19:16→19:26)
--- NOTE | 2019-11-04 19:49 | PDOC ---
Attending Attestation - Resident Resident Name: RegiHernesto matthews - ED Attending Attestation I have performed the following: I have examined & evaluated the patient, The case was reviewed & discussed with the resident, I agree w/resident's findings & plan - HPI HPI: 11/04/19 19:44 see resident hpi - Physicial Exam PE: 11/04/19 19:44 see resident exam - Medical Decision Making 11/04/19 19:49 64-year-old female sent for admission by PCP for right lower extremity cellulitis, there is no extension into the inguinal region Vancomycin administered initially in the emergency department, extended to clindamycin for broader coverage Lower extremity duplex pending Patient admitted to PCP for further management
[2019-11-04] MEDS ORDERED: ALBUTEROL SO4 2.5/IPRATROPIUM 0.5 INH SOL 3 ML VIAL.NEB. NEB PRN (20:01)
[2019-11-04] MEDS ORDERED: ATORVASTATIN CA 10 MG TABLET (FP) ONE (20:35)
[2019-11-04] MEDS: metroNIDAZOLE 500 MG TABLET PO SCH (21:12)
[2019-11-04] MEDS: ATORVASTATIN CA 10 MG TABLET (FP) PO SCH (21:13)
[2019-11-04] MEDS ORDERED: LIDOCAINE VISCOUS 2% ORAL/TOP 20 ML UNIT-DOSE CUP ONE (21:53)
[2019-11-05 03:39] VITALS: BMI 43.7
[2019-11-05] MEDS: metroNIDAZOLE 500 MG TABLET PO SCH ×3 (06:02→22:27)
[2019-11-05 07:34] LABS: BASO % 0.6 % (0-2.0); EOS % 1.2 % (0-4.5); HEMATOCRIT 32.2 % (32.4-45.2); MCH 29.1 pg (25.7-33.7); MCHC 34.1 g/dl (32.0-36.0); MEAN CELL VOLUME 85.6 fl (80-96); MEAN PLT VOLUME 9.2 fl (7.5-11.1); MONO % 11.9 % (3.8-10.2); NEUT % 56.3 % (42.8-82.8); PLATELET COUNT 101 K/MM3 (134-434); RBC 3.77 M/mm3 (3.60-5.2); RDW 15.6 % (11.6-15.6); WHITE BLOOD COUNT 3.8 K/mm3 (4.0-10.0)
[2019-11-05 08:01] LABS: ALBUMIN 2.9 g/dl (3.4-5.0); BILIRUBIN,TOTAL 0.8 mg/dL (0.2-1); BLOOD UREA NITROGEN 22.5 mg/dL (7-18); CALCIUM 8.5 mg/dL (8.5-10.1); CREATININE 0.6 mg/dL (0.55-1.3); MAGNESIUM 2.2 mg/dL (1.8-2.4); PHOSPHOROUS 3.6 mg/dL (2.5-4.9); POTASSIUM 3.5 mmol/L (3.5-5.1); TOT PROT 5.7 g/dl (6.4-8.2)
--- NOTE | 2019-11-05 08:24 | HP ---
Admitting History and Physical - Admission Chief Complaint: 64 y.o F was admitted to [facility] after she was seen in the office of her PMD with high fevers, sweats, tiredness and tenderness and erythema of the right thigh. History of Present Illness: History of C.Diff colitis. Recently healed, but previously non-healing ulcer of the right hill. 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 No: AIDS, C-Diff, Herpes Zoster, HIV, STD's, Tuberculosis, VREF, Other Musculoskeletal: No: Bursitis, Chronic low back pain, Hemiparesis, Hemiplegia, Osteoarthritis, Paraplegia, Other Endocrine: No: [place]'s Disease, [place]'s Disease, Diabetes Insipidus, Diabetes Mellitus, Hyperparathyroidism, Hyperthyroidism, Hypothyroidism, Osteopenia, SIADH, Other - Past Surgical History Past Surgical History: Yes: Cholecystectomy (open with liver bx at [facility]), Hernia Repair (hiatal hernia repaired with gastric band), Joint Replacement (right THR) , Tonsillectomy, Tubal Ligation - Smoking History Smoking history: Smoker current status UNK Have you smoked in the past 12 months: No Aproximately how many cigarettes per day: 0 If you are a former smoker, when did you quit?: 1997 - Alcohol/Substance Use Hx Alcohol Use: No History of Substance Use: reports: None - Social History ADL: Family Assistance Occupation: retired [employer] History of Recent Travel: No Home Medications - Allergies Allergies/Adverse Reactions: Allergies Allergy/AdvReac Type Severity Reaction Status Date / Time codeine [Codeine] Allergy Unknown Verified 11/04/19 17:12 latex [Latex] Allergy Unknown Verified 11/04/19 17:12 silver sulfadiazine Allergy Unknown Verified 11/04/19 17:12 [From Silvadene] Sulfa (Sulfonamide Allergy Unknown Verified 11/04/19 17:12 Antibiotics) bacitracin [From Neosporin] Allergy Verified 11/04/19 17:12 bacitracin zinc Allergy Verified 11/04/19 17:12 [From Neosporin] benzalkonium chloride Allergy Verified 11/04/19 17:12 [From Neosporin] gramicidin D [From Neosporin] Allergy Verified 11/04/19 17:12 neomycin sulfate Allergy Verified 11/04/19 17:12 [From Neosporin] piperacillin Allergy unknown Verified 11/05/19 08:28 polymyxin B [From Neosporin] Allergy Verified 11/04/19 17:12 polymyxin B sulfate Allergy Verified 11/04/19 17:12 [From Neosporin] POWDER Allergy Intermediate WHEEZING Uncoded 11/04/19 17:12 TRIDE Allergy Intermediate Uncoded 11/04/19 17:12 CODIENE Allergy Mild Itching Uncoded 11/04/19 17:12 LATEX Allergy Uncoded 11/04/19 17:12 SILVADENE Allergy Uncoded 11/04/19 17:12 SULFA Allergy Uncoded 11/04/19 17:12 FRAGRANCES AdvReac Intermediate WHEEZING Uncoded 11/04/19 17:12 lactose intolerance AdvReac Uncoded 11/04/19 17:12 - Home Medications Home Medications: Ambulatory Orders Aspirin [ASA -] 81 mg PO DAILY 05/21/12 Docosahexanoic Acid/Epa [Fish Oil Softgel] 1 cap PO DAILY 05/21/12 Vitamin E 1 cap PO DAILY 05/21/12 Vitamin B Complex 1 each PO DAILY 02/04/13 Spironolactone [Aldactone -] 25 mg PO DAILY 03/18/13 Cholecalciferol (Vitamin D3) [Vitamin D] 5,000 unit PO DAILY 07/02/13 Magnesium Amino Acid Chelate [Magnesium] 100 mg PO DAILY 07/02/13 Docusate Sodium [Colace -] 100 mg PO BID 07/03/13 Famotidine [Pepcid -] 20 mg PO DAILY 07/03/13 Montelukast Na [Singulair -] 10 mg PO HS #0 tablet 07/07/13 Sennosides/Docusate Sodium [Pericolace -] 2 each PO HS #0 tablet 07/07/13 Lipitor 10 mg PO HS 12/17/17 Torsemide [Demadex -] 10 mg PO BIDLASIX tablet 02/14/18 Albuterol Sulfate [Proair Hfa] 1 puff IH PRN PRN 02/10/19 Mometasone Furoate [Asmanex Hfa] 1 puff IH DAILY 02/10/19 Tiotropium Br/Olodaterol HCl [Stiolto Respimat Inhal [place]] 2.5 mg IH HS Family Medical History Family History: Unremarkable Review of Systems - Review of Systems Constitutional: reports: Chills, Diaphoresis, Lethargy, Loss of Appetite, Malaise, Night Sweats, Weakness Eyes: reports: No Symptoms HENT: reports: No Symptoms Neck: reports: No Symptoms Cardiovascular: denies: Chest Pain, Palpitations, Shortness of Breath Respiratory: denies: Cough, Exercise Intolerance Gastrointestinal: reports: Constipation. denies: No Symptoms, Abdominal Pain, Bloating Genitourinary: reports: No Symptoms Breasts: reports: No Symptoms Reported Integumentary: reports: Erythema (right thigh) Endocrine: reports: No Symptoms Hematology/Lymphatic: reports: No Symptoms Psychiatric: reports: No Symptoms Physical Examination Vital Signs: Vital Signs Temperature 98.1 F 11/05/19 02:23 Pulse Rate 80 11/05/19 02:23 Respiratory Rate 18 11/05/19 02:23 Blood Pressure 146/73 11/05/19 02:23 O2 Sat by Pulse Oximetry (%) 96 11/05/19 02:23 Constitutional: Yes: No Distress, Obese. No: Diaphoresis, Pallor Eyes: Yes: Conjunctiva Clear, EOM Intact HENT: Yes: Atraumatic, Normocephalic. No: Drooling Neck: Yes: Supple, Trachea Midline. No: Lymphadenopathy Cardiovascular: Yes: Regular Rate and Rhythm, S1, S2. No: Bradycardia, Tachycardia Respiratory: Yes: Regular, CTA Bilaterally Gastrointestinal: Yes: Normal Bowel Sounds, Soft, Abdomen, Obese. No: Hepatomegaly, Palpable Mass, Pulsatile Mass ...Rectal Exam: Yes: Deferred Renal/: No: Anuria, Bladder Distention Breast(s): Yes: WNL Edema: RLE: Trace Integumentary: Yes: Erythema (posterior and lateral surfaces right thigh), Other (right hill ulcer healed) Neurological: Yes: WNL ...Motor Strength: WNL Psychiatric: Yes: WNL Labs: CBC, BMP 11/05/19 06:25 11/05/19 06:25 Laboratory Results - last 24 hr 11/04/19 11/04/19 11/04/19 17:35 17:35 17:35 WBC 5.3 RBC 4.46 Hgb 12.9 Hct 38.2 MCV 85.8 MCH 28.9 MCHC 33.7 RDW 15.8 H Plt Count 111 L MPV 9.0 Absolute Neuts (auto) 3.5 Neutrophils % 67.2 D Lymphocytes % 22.8 D Monocytes % 9.1 Eosinophils % 0.3 D Basophils % 0.6 Nucleated RBC % 0 Sodium 143 Potassium 3.3 L Chloride 106 Carbon Dioxide 27 Anion Gap 10 BUN 20.7 H Creatinine 0.7 Est GFR (CKD-EPI)AfAm 107.62 Est GFR (CKD-EPI)NonAf 92.86 POC Glucometer Random Glucose 100 Calcium 8.9 Phosphorus Magnesium Total Bilirubin 0.9 AST 23 ALT 22 Alkaline Phosphatase 84 Total Protein 7.0 Albumin 3.4 Urine Color Dk yellow Urine Appearance Cloudy Urine pH 5.0 Ur Specific [place] 1.034 Urine Protein 2+ H Urine Glucose (UA) Negative Urine Ketones Trace H Urine Blood 2+ H Urine Nitrite Negative Urine Bilirubin Negative Urine Urobilinogen 1.0 Ur Leukocyte Esterase 2+ H Urine WBC (Auto) 20 Urine RBC (Auto) 6 Urine Casts (Auto) 17 U Epithel Cells (Auto) 10.4 Urine Bacteria (Auto) 8.9 11/04/19 11/05/19 11/05/19 20:38 06:04 06:25 WBC 3.8 L RBC 3.77 Hgb 11.0 Hct 32.2 L D MCV 85.6 MCH 29.1 MCHC 34.1 RDW 15.6 Plt Count 101 L MPV 9.2 Absolute Neuts (auto) 2.1 Neutrophils % 56.3 Lymphocytes % 30.0 D Monocytes % 11.9 H Eosinophils % 1.2 D Basophils % 0.6 Nucleated RBC % 0 Sodium Potassium Chloride Carbon Dioxide Anion Gap BUN Creatinine Est GFR (CKD-EPI)AfAm Est GFR (CKD-EPI)NonAf POC Glucometer 107 84 Random Glucose Calcium Phosphorus Magnesium Total Bilirubin AST ALT Alkaline Phosphatase Total Protein Albumin Urine Color Urine Appearance Urine pH Ur Specific [place] Urine Protein Urine Glucose (UA) Urine Ketones Urine Blood Urine Nitrite Urine Bilirubin Urine Urobilinogen Ur Leukocyte Esterase Urine WBC (Auto) Urine RBC (Auto) Urine Casts (Auto) U Epithel Cells (Auto) Urine Bacteria (Auto) 11/05/19 06:25 WBC RBC Hgb Hct MCV MCH MCHC RDW Plt Count MPV Absolute Neuts (auto) Neutrophils % Lymphocytes % Monocytes % Eosinophils % Basophils % Nucleated RBC % Sodium 142 Potassium 3.5 Chloride 106 Carbon Dioxide 29 Anion Gap 6 L BUN 22.5 H Creatinine 0.6 Est GFR (CKD-EPI)AfAm 113.22 Est GFR (CKD-EPI)NonAf 97.69 POC Glucometer Random Glucose 87 Calcium 8.5 Phosphorus 3.6 Magnesium 2.2 Total Bilirubin 0.8 AST 19 ALT 22 Alkaline Phosphatase 67 Total Protein 5.7 L Albumin 2.9 L Urine Color Urine Appearance Urine pH Ur Specific [place] Urine Protein Urine Glucose (UA) Urine Ketones Urine Blood Urine Nitrite Urine Bilirubin Urine Urobilinogen Ur Leukocyte Esterase Urine WBC (Auto) Urine RBC (Auto) Urine Casts (Auto) U Epithel Cells (Auto) Urine Bacteria (Auto) Imaging - Results Chest X-ray: Report Reviewed Ultrasound: Report Reviewed Problem List - Problems (1) Cellulitis Assessment/Plan: ID consult. Questionable history of Piperacillin Allergy. Will start Kefzol IV and observe for cross allergy. Was given Vanco in ER, Levaquin IV ordered. Code(s): L03.90 - CELLULITIS, UNSPECIFIED Qualifiers: Site of cellulitis: extremity Site of cellulitis of extremity: lower extremity Laterality: right Qualified Code(s): L03.115 - Cellulitis of right lower limb (2) CHF (congestive heart failure), NYHA class II Assessment/Plan: Continue Spironolactone, Torsemide. Code(s): I50.9 - HEART FAILURE, UNSPECIFIED Qualifiers: Congestive heart failure type: diastolic (3) Venous stasis ulcer of right lower extremity Assessment/Plan: RLE elevation, comprssion stocking/ROSA Code(s): I83.019 - VARICOSE VEINS OF RIGHT LOWER EXTREMITY W ULCER OF UNSP SITE ; L97.919 - NON-PRS CHRONIC ULC UNSP PRT OF R LOW LEG W UNSP SEVERITY (4) C. difficile colitis Assessment/Plan: Metronidazole PO while she is on IV abx. Code(s): A04.72 - ENTEROCOLITIS D/T CLOSTRIDIUM DIFFICILE, NOT SPCF RECUR
[2019-11-05] MEDS: POTASSIUM CHLORIDE TABS 20 MEQ TABLET.ER (FP) PO SCH (09:07)
[2019-11-05] MEDS: TORSEMIDE 20 MG TABLET (FP) PO SCH (09:07)
[2019-11-05] MEDS: SPIRONOLACTONE 25 MG TABLET (FP) PO SCH (09:07)
--- NOTE | 2019-11-05 10:43 | EKG ---
Test Reason : Blood Pressure : / mmHG Vent. Rate : 090 BPM Atrial Rate : 090 BPM P-R Int : 146 ms QRS Dur : 088 ms QT Int : 378 ms P-R-T Axes : 065 047 044 degrees QTc Int : 462 ms POOR DATA QUALITY, INTERPRETATION MAY BE ADVERSELY AFFECTED NORMAL SINUS RHYTHM NONSPECIFIC ST ABNORMALITY ABNORMAL ECG Confirmed by Viral Ahuja MD ([id number]) on 11/05/2019 10:43:10 AM Referred By: Confirmed By:Viral Ahuja MD
--- NOTE | 2019-11-05 12:06 | CON.ID ---
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 No: AIDS, C-Diff, Herpes Zoster, HIV, STD's, Tuberculosis, VREF, Other Musculoskeletal: No: Bursitis, Chronic low back pain, Hemiparesis, Hemiplegia, Osteoarthritis, Paraplegia, Other Endocrine: No: [place]'s Disease, [place]'s Disease, Diabetes Insipidus, Diabetes Mellitus, Hyperparathyroidism, Hyperthyroidism, Hypothyroidism, Osteopenia, SIADH, Other - Past Surgical History Past Surgical History: Yes: Cholecystectomy (open with liver bx at [facility]), Hernia Repair (hiatal hernia repaired with gastric band), Joint Replacement (right THR) , Tonsillectomy, Tubal Ligation - Alcohol/Substance Use Hx Alcohol Use: No History of Substance Use: reports: None - Smoking History Smoking history: Smoker current status UNK Have you smoked in the past 12 months: No Aproximately how many cigarettes per day: 0 If you are a former smoker, when did you quit?: 1997 - Social History Usual Living Arrangement: With Spouse ADL: Family Assistance Occupation: retired [employer] History of Recent Travel: No Home Medications - Allergies Allergies/Adverse Reactions: Allergies Allergy/AdvReac Type Severity Reaction Status Date / Time codeine [Codeine] Allergy Unknown Verified 11/04/19 17:12 latex [Latex] Allergy Unknown Verified 11/04/19 17:12 silver sulfadiazine Allergy Unknown Verified 11/04/19 17:12 [From Silvadene] Sulfa (Sulfonamide Allergy Unknown Verified 11/04/19 17:12 Antibiotics) bacitracin [From Neosporin] Allergy Verified 11/04/19 17:12 bacitracin zinc Allergy Verified 11/04/19 17:12 [From Neosporin] benzalkonium chloride Allergy Verified 11/04/19 17:12 [From Neosporin] gramicidin D [From Neosporin] Allergy Verified 11/04/19 17:12 neomycin sulfate Allergy Verified 11/04/19 17:12 [From Neosporin] piperacillin Allergy unknown Verified 11/05/19 08:28 polymyxin B [From Neosporin] Allergy Verified 11/04/19 17:12 polymyxin B sulfate Allergy Verified 11/04/19 17:12 [From Neosporin] POWDER Allergy Intermediate WHEEZING Uncoded 11/04/19 17:12 TRIDE Allergy Intermediate Uncoded 11/04/19 17:12 CODIENE Allergy Mild Itching Uncoded 11/04/19 17:12 LATEX Allergy Uncoded 11/04/19 17:12 SILVADENE Allergy Uncoded 11/04/19 17:12 SULFA Allergy Uncoded 11/04/19 17:12 FRAGRANCES AdvReac Intermediate WHEEZING Uncoded 11/04/19 17:12 lactose intolerance AdvReac Uncoded 11/04/19 17:12 - Home Medications Home Medications: Ambulatory Orders Aspirin [ASA -] 81 mg PO DAILY 05/21/12 Docosahexanoic Acid/Epa [Fish Oil Softgel] 1 cap PO DAILY 05/21/12 Vitamin E 1 cap PO DAILY 05/21/12 Vitamin B Complex 1 each PO DAILY 02/04/13 Spironolactone [Aldactone -] 25 mg PO DAILY 03/18/13 Cholecalciferol (Vitamin D3) [Vitamin D] 5,000 unit PO DAILY 07/02/13 Magnesium Amino Acid Chelate [Magnesium] 100 mg PO DAILY 07/02/13 Docusate Sodium [Colace -] 100 mg PO BID 07/03/13 Famotidine [Pepcid -] 20 mg PO DAILY 07/03/13 Montelukast Na [Singulair -] 10 mg PO HS #0 tablet 07/07/13 Sennosides/Docusate Sodium [Pericolace -] 2 each PO HS #0 tablet 07/07/13 Lipitor 10 mg PO HS 12/17/17 Torsemide [Demadex -] 10 mg PO BIDLASIX tablet 02/14/18 Albuterol Sulfate [Proair Hfa] 1 puff IH PRN PRN 02/10/19 Mometasone Furoate [Asmanex Hfa] 1 puff IH DAILY 02/10/19 Tiotropium Br/Olodaterol HCl [Stiolto Respimat Inhal [place]] 2.5 mg IH HS Physical Exam Vital Signs: Vital Signs Temperature 98.1 F 11/05/19 02:23 Pulse Rate 80 11/05/19 02:23 Respiratory Rate 18 11/05/19 02:23 Blood Pressure 146/73 11/05/19 02:23 O2 Sat by Pulse Oximetry (%) 96 11/05/19 02:23 Labs: CBC, BMP 11/05/19 06:25 11/05/19 06:25
[2019-11-05] MEDS ORDERED: DEXTROSE 5%-WATER - 50 ML IVPB ONE ×2 (12:17→17:33)
[2019-11-05] MEDS ORDERED: ceFAZolin SODIUM 1 GM VIAL ONE ×2 (12:17→17:33)
[2019-11-05] MEDS: CEFAZOLIN 1 GM in DEXTROSE 5%-WATER - 50 ML IVPB SCH ×2 (12:22→17:53)
[2019-11-05] MEDS: HEPARIN NA (PORCINE) 5,000 UNITS/ML 1ML VIAL SQ SCH ×2 (13:55→22:03)
[2019-11-05] MEDS ORDERED: PT OWN MED DRAWER 7, Y5N ONE (21:47)
[2019-11-05] MEDS: ATORVASTATIN CA 10 MG TABLET (FP) PO SCH (22:04)
[2019-11-06] MEDS ORDERED: ceFAZolin SODIUM 1 GM VIAL ONE ×3 (02:03→17:01)
[2019-11-06] MEDS ORDERED: DEXTROSE 5%-WATER - 50 ML IVPB ONE ×3 (02:04→17:01)
[2019-11-06] MEDS: CEFAZOLIN 1 GM in DEXTROSE 5%-WATER - 50 ML IVPB SCH ×3 (02:07→18:04)
[2019-11-06] MEDS: metroNIDAZOLE 500 MG TABLET PO SCH ×3 (06:34→22:01)
[2019-11-06] MEDS: HEPARIN NA (PORCINE) 5,000 UNITS/ML 1ML VIAL SQ SCH ×3 (06:34→22:01)
[2019-11-06 08:14] LABS: BASO % 0.5 % (0-2.0); EOS % 2.1 % (0-4.5); HEMATOCRIT 35.8 % (32.4-45.2); HEMOGLOBIN 12.4 GM/dL (10.7-15.3); LYMPH % 36.4 % (8-40); MCHC 34.5 g/dl (32.0-36.0); MONO % 7.3 % (3.8-10.2); NEUT % 53.7 % (42.8-82.8); PLATELET COUNT 146 K/MM3 (134-434); RBC 4.27 M/mm3 (3.60-5.2); RDW 15.3 % (11.6-15.6); WHITE BLOOD COUNT 3.7 K/mm3 (4.0-10.0)
--- NOTE | 2019-11-06 08:46 | PN ---
Progress Note, Physician Chief Complaint: Feels better., no fever. History of Present Illness: Right thigh redness and tenderness improving Tolerating Kefzol IV. PMH History of C.Diff colitis. Recently healed, but previously non-healing ulcer of the right hill. HTN HFpEP HLD Asthma Intermittent diarrhea with guaiac positive stool Allergic rhinitis Obesity, s/p Lap band PSH BTL Opnen elsy umbilical hernia repair Lap band bariatric surgery - Current Medication List Current Medications: Active Medications Albuterol/Ipratropium (Duoneb -) 1 amp NEB Q6H PRN PRN Reason: SHORTNESS OF BREATH Atorvastatin Calcium (Lipitor -) 10 mg PO HS [facility] Last Admin: 11/05/19 22:04 Dose: 10 mg Diphenhydramine HCl (Benadryl Injection -) 25 mg IVPUSH Q6H PRN PRN Reason: FOR ITCHIGN Heparin Sodium (Porcine) (Heparin -) 5,000 unit SQ TID [facility] Last Admin: 11/06/19 06:34 Dose: 5,000 unit Cefazolin Sodium 1 gm/ (Dextrose) 50 mls @ 100 mls/hr IVPB Q8H-IV [facility] Last Admin: 11/06/19 02:07 Dose: 100 mls/hr Metronidazole (Flagyl -) 500 mg PO TID [facility] Last Admin: 11/06/19 06:34 Dose: 500 mg Potassium Chloride (K-Dur -) 20 meq PO DAILY [facility] Last Admin: 11/05/19 09:07 Dose: 20 meq Spironolactone (Aldactone -) 25 mg PO DAILY [facility] Last Admin: 11/05/19 09:07 Dose: 25 mg Torsemide (Demadex -) 20 mg PO DAILY [facility] Last Admin: 11/05/19 09:07 Dose: 20 mg - Objective Vital Signs: Vital Signs Temperature 97.7 F 11/06/19 06:00 Pulse Rate 69 11/06/19 06:00 Respiratory Rate 20 11/06/19 06:00 Blood Pressure 114/61 11/06/19 06:00 O2 Sat by Pulse Oximetry (%) 96 11/05/19 21:00 Constitutional: Yes: No Distress Eyes: Yes: Conjunctiva Clear, EOM Intact HENT: Yes: Atraumatic, Normocephalic Neck: Yes: Supple, Trachea Midline Cardiovascular: Yes: Regular Rate and Rhythm, S1, S2 Respiratory: Yes: Regular, CTA Bilaterally Gastrointestinal: Yes: Normal Bowel Sounds, Soft, Abdomen, Obese. No: Palpable Mass, Vomiting ...Rectal Exam: Yes: Deferred Genitourinary: No: Anuria, Bladder Distention, CVA Tenderness - Left, CVA Tenderness - Right Breast(s): Yes: WNL Musculoskeletal: Yes: WNL Extremities: Yes: Erythema (Posterior right thigh), Other Peripheral Pulses WNL: No Wound/Incision: Yes: Clean/Dry (Healed right hill wound) Neurological: Yes: Alert, Oriented, Cran Nerves II-XII Intact. No: Aphasia, Asterixis, Ataxia, Confusion, Dysarthria, Facial Droop, Lethargy, Loss of Sensation, Numbness, Paresthesia, Pre-Existing Deficit, Seizure, Unresponsive, Unsteady Gait, Weakness ...Motor Strength: WNL Psychiatric: Yes: WNL Labs: CBC, BMP 11/06/19 06:15 Problem List - Problems (1) Cellulitis Assessment/Plan: ID consult noted. Continue Kefzol IV Q8 H Code(s): L03.90 - CELLULITIS, UNSPECIFIED Qualifiers: Site of cellulitis: extremity Site of cellulitis of extremity: lower extremity Laterality: right Qualified Code(s): L03.115 - Cellulitis of right lower limb (2) CHF (congestive heart failure), NYHA class II Assessment/Plan: Continue Spironolactone, Torsemide. Code(s): I50.9 - HEART FAILURE, UNSPECIFIED Qualifiers: Congestive heart failure type: diastolic (3) Venous stasis ulcer of right lower extremity Assessment/Plan: RLE elevation, comprssion stocking/ROSA Code(s): I83.019 - VARICOSE VEINS OF RIGHT LOWER EXTREMITY W ULCER OF UNSP SITE ; L97.919 - NON-PRS CHRONIC ULC UNSP PRT OF R LOW LEG W UNSP SEVERITY (4) C. difficile colitis Assessment/Plan: Metronidazole PO while she is on IV abx. Code(s): A04.72 - ENTEROCOLITIS D/T CLOSTRIDIUM DIFFICILE, NOT SPCF RECUR
[2019-11-06 08:55] LABS: BLOOD UREA NITROGEN 22.7 mg/dL (7-18); CALCIUM 8.9 mg/dL (8.5-10.1); CREATININE 0.7 mg/dL (0.55-1.3); POTASSIUM 3.5 mmol/L (3.5-5.1)
[2019-11-06] MEDS ORDERED: MAGNESIUM HYDROX 2400MG/30ML ORAL SUSPENSION 30 ML CUP PO ONE (09:15)
[2019-11-06] MEDS: TORSEMIDE 20 MG TABLET (FP) PO SCH (10:34)
[2019-11-06] MEDS: SPIRONOLACTONE 25 MG TABLET (FP) PO SCH (10:34)
[2019-11-06] MEDS: POTASSIUM CHLORIDE TABS 20 MEQ TABLET.ER (FP) PO SCH (10:34)
--- NOTE | 2019-11-06 10:48 | PN ---
Progress Note, Physician History of Present Illness: leg starting to look better tenderness and erythema better - Current Medication List Current Medications: Active Medications Albuterol/Ipratropium (Duoneb -) 1 amp NEB Q6H PRN PRN Reason: SHORTNESS OF BREATH Atorvastatin Calcium (Lipitor -) 10 mg PO [facility] Last Admin: 11/05/19 22:04 Dose: 10 mg Diphenhydramine HCl (Benadryl Injection -) 25 mg IVPUSH Q6H PRN PRN Reason: FOR ITCHIGN Docusate Sodium (Colace -) 300 mg PO [facility] Heparin Sodium (Porcine) (Heparin -) 5,000 unit SQ TID [facility] Last Admin: 11/06/19 06:34 Dose: 5,000 unit Cefazolin Sodium 1 gm/ (Dextrose) 50 mls @ 100 mls/hr IVPB Q8H-IV [facility] Last Admin: 11/06/19 10:34 Dose: 100 mls/hr Metronidazole (Flagyl -) 500 mg PO TID [facility] Last Admin: 11/06/19 06:34 Dose: 500 mg Montelukast Sodium (Singulair -) 10 mg PO [facility] Potassium Chloride (K-Dur -) 20 meq PO DAILY [facility] Last Admin: 11/06/19 10:34 Dose: 20 meq Spironolactone (Aldactone -) 25 mg PO DAILY [facility] Last Admin: 11/06/19 10:34 Dose: 25 mg Torsemide (Demadex -) 20 mg PO DAILY [facility] Last Admin: 11/06/19 10:34 Dose: 20 mg - Objective Vital Signs: Vital Signs Temperature 97.7 F 11/06/19 06:00 Pulse Rate 69 11/06/19 06:00 Respiratory Rate 20 11/06/19 06:00 Blood Pressure 114/61 11/06/19 06:00 O2 Sat by Pulse Oximetry (%) 96 11/05/19 21:00 Constitutional: Yes: No Distress, Calm Cardiovascular: Yes: S1, S2 Respiratory: Yes: Regular, CTA Bilaterally Gastrointestinal: Yes: Normal Bowel Sounds, Soft Musculoskeletal: Yes: Other Extremities: Yes: Erythema, Other Neurological: Yes: Alert, Oriented Psychiatric: Yes: Alert, Oriented Labs: CBC, BMP 11/06/19 06:15 11/06/19 06:15 Assessment/Plan Problem List - Problems (1) Cellulitis Code(s): L03.90 - CELLULITIS, UNSPECIFIED Qualifiers: Site of cellulitis: extremity Site of cellulitis of extremity: lower extremity Laterality: right Qualified Code(s): L03.115 - Cellulitis of right lower limb (2) CHF (congestive heart failure), NYHA class II Code(s): I50.9 - HEART FAILURE, UNSPECIFIED Qualifiers: Congestive heart failure type: diastolic (3) Venous stasis ulcer of right lower extremity Code(s): I83.019 - VARICOSE VEINS OF RIGHT LOWER EXTREMITY W ULCER OF UNSP SITE ; L97.919 - NON-PRS CHRONIC ULC UNSP PRT OF R LOW LEG W UNSP SEVERITY (4) C. difficile colitis Code(s): A04.72 - ENTEROCOLITIS D/T CLOSTRIDIUM DIFFICILE, NOT SPCF RECUR plan continue iv abx for couple of days elevation of the leg monitor rest continue current mgmt
[2019-11-06] MEDS ORDERED: DOCUSATE SODIUM 100 MG CAPSULE (FP) PO SCH (22:00)
[2019-11-06] MEDS ORDERED: MONTELUKAST NA 10 MG TABLET PO SCH (22:00)
[2019-11-06] MEDS: ATORVASTATIN CA 10 MG TABLET (FP) PO SCH (22:02)
[2019-11-07] MEDS ORDERED: ceFAZolin SODIUM 1 GM VIAL ONE ×2 (02:38→08:59)
[2019-11-07] MEDS ORDERED: DEXTROSE 5%-WATER - 50 ML IVPB ONE ×2 (02:38→08:59)
[2019-11-07] MEDS: CEFAZOLIN 1 GM in DEXTROSE 5%-WATER - 50 ML IVPB SCH ×2 (02:41→10:48)
[2019-11-07] MEDS: metroNIDAZOLE 500 MG TABLET PO SCH (05:41)
[2019-11-07] MEDS: HEPARIN NA (PORCINE) 5,000 UNITS/ML 1ML VIAL SQ SCH (05:41)
--- NOTE | 2019-11-07 08:48 | PN ---
Progress Note, Physician Chief Complaint: Right thigh redness and tenderness improving History of Present Illness: H History of C.Diff colitis. Recently healed, but previously non-healing ulcer of the right hill. HTN HFpEP HLD Asthma Intermittent diarrhea with guaiac positive stool Allergic rhinitis Obesity, s/p Lap band PSH BTL Opnen elsy umbilical hernia repair Lap band bariatric surgery - Current Medication List Current Medications: Active Medications Albuterol/Ipratropium (Duoneb -) 1 amp NEB Q6H PRN PRN Reason: SHORTNESS OF BREATH Atorvastatin Calcium (Lipitor -) 10 mg PO HS [facility] Last Admin: 11/06/19 22:02 Dose: 10 mg Diphenhydramine HCl (Benadryl Injection -) 25 mg IVPUSH Q6H PRN PRN Reason: FOR ITCHIGN Docusate Sodium (Colace -) 300 mg PO [facility] Last Admin: 11/06/19 22:00 Dose: 300 mg Heparin Sodium (Porcine) (Heparin -) 5,000 unit SQ TID [facility] Last Admin: 11/07/19 05:41 Dose: 5,000 unit Cefazolin Sodium 1 gm/ (Dextrose) 50 mls @ 100 mls/hr IVPB Q8H-IV [facility] Last Admin: 11/07/19 02:41 Dose: 100 mls/hr Metronidazole (Flagyl -) 500 mg PO TID [facility] Last Admin: 11/07/19 05:41 Dose: 500 mg Montelukast Sodium (Singulair -) 10 mg PO HS [facility] Last Admin: 11/06/19 22:02 Dose: 10 mg Potassium Chloride (K-Dur -) 20 meq PO DAILY [facility] Last Admin: 11/06/19 10:34 Dose: 20 meq Spironolactone (Aldactone -) 25 mg PO DAILY [facility] Last Admin: 11/06/19 10:34 Dose: 25 mg Torsemide (Demadex -) 20 mg PO DAILY [facility] Last Admin: 11/06/19 10:34 Dose: 20 mg - Objective Vital Signs: Vital Signs Temperature 97.6 F 11/07/19 06:00 Pulse Rate 87 11/07/19 06:00 Respiratory Rate 18 11/07/19 06:00 Blood Pressure 136/70 11/07/19 06:00 O2 Sat by Pulse Oximetry (%) 96 11/06/19 21:00 Constitutional: Yes: No Distress, Calm, Obese Eyes: Yes: Conjunctiva Clear, EOM Intact HENT: Yes: Atraumatic, Normocephalic Neck: Yes: Supple, Trachea Midline Cardiovascular: Yes: Regular Rate and Rhythm, S1, S2. No: Bradycardia, Tachycardia Respiratory: Yes: Regular, CTA Bilaterally. No: Accessory Muscle Use, Bradypnea Gastrointestinal: Yes: Normal Bowel Sounds, Soft, Abdomen, Obese ...Rectal Exam: Yes: Deferred Genitourinary: No: Anuria, Bladder Distention, CVA Tenderness - Left Breast(s): Yes: WNL Extremities: Yes: Other (Right LE-erythema, tenderness) Neurological: Yes: WNL ...Motor Strength: WNL Psychiatric: Yes: WNL Labs: CBC, BMP 11/06/19 06:15 11/06/19 06:15 Problem List - Problems (1) Cellulitis Assessment/Plan: ID consult noted. Continue Kefzol IV Q8 H Code(s): L03.90 - CELLULITIS, UNSPECIFIED Qualifiers: Site of cellulitis: extremity Site of cellulitis of extremity: lower extremity Laterality: right Qualified Code(s): L03.115 - Cellulitis of right lower limb (2) CHF (congestive heart failure), NYHA class II Assessment/Plan: Continue Spironolactone, Torsemide. Code(s): I50.9 - HEART FAILURE, UNSPECIFIED Qualifiers: Congestive heart failure type: diastolic (3) Venous stasis ulcer of right lower extremity Assessment/Plan: RLE elevation, comprssion stocking/ROSA Code(s): I83.019 - VARICOSE VEINS OF RIGHT LOWER EXTREMITY W ULCER OF UNSP SITE ; L97.919 - NON-PRS CHRONIC ULC UNSP PRT OF R LOW LEG W UNSP SEVERITY (4) C. difficile colitis Assessment/Plan: Metronidazole PO while she is on IV abx. Code(s): A04.72 - ENTEROCOLITIS D/T CLOSTRIDIUM DIFFICILE, NOT SPCF RECUR
--- NOTE | 2019-11-07 08:50 | DS ---
Physical Examination Vital Signs: Vital Signs Temperature 97.6 F 11/07/19 06:00 Pulse Rate 87 11/07/19 06:00 Respiratory Rate 18 11/07/19 06:00 Blood Pressure 136/70 11/07/19 06:00 O2 Sat by Pulse Oximetry (%) 96 11/06/19 21:00 Constitutional: Yes: No Distress, Obese Eyes: Yes: Conjunctiva Clear, EOM Intact HENT: Yes: Atraumatic, Normocephalic. No: Drooling Neck: Yes: Supple, Trachea Midline. No: Decreased ROM, Lymphadenopathy Cardiovascular: Yes: Regular Rate and Rhythm, S1, S2. No: Bradycardia, Tachycardia Respiratory: Yes: Regular, CTA Bilaterally. No: Accessory Muscle Use, Bradypnea Gastrointestinal: Yes: Normal Bowel Sounds, Soft, Abdomen, Obese ...Rectal Exam: Yes: Deferred Renal/: No: Anuria, Bladder Distention, CVA Tenderness - Left, CVA Tenderness - Right Breast(s): Yes: WNL Musculoskeletal: No: Muscle Weakness Extremities: Yes: Erythema (Right thigh) Edema: No Wound/Incision: Yes: Clean/Dry (right hill ulcer) ...Motor Strength: WNL Psychiatric: Yes: WNL Labs: CBC, BMP 11/06/19 06:15 11/06/19 06:15 Discharge Summary Problems reviewed: Yes Reason For Visit: CHF ANEMIA CELLULITIS Current Active Problems C. difficile colitis (Acute) Cellulitis (Acute) Condition: Stable - Instructions Referrals: Moises Kimbrough MD [Primary Care Provider] - Disposition: HOME - Home Medications Comprehensive Discharge Medication List: Ambulatory Orders Aspirin [ASA -] 81 mg PO DAILY 05/21/12 Docosahexanoic Acid/Epa [Fish Oil Softgel] 1 cap PO DAILY 05/21/12 Vitamin E 1 cap PO DAILY 05/21/12 Vitamin B Complex 1 each PO DAILY 02/04/13 Spironolactone [Aldactone -] 25 mg PO DAILY 03/18/13 Cholecalciferol (Vitamin D3) [Vitamin D] 5,000 unit PO DAILY 07/02/13 Magnesium Amino Acid Chelate [Magnesium] 100 mg PO DAILY 07/02/13 Docusate Sodium [Colace -] 100 mg PO BID 07/03/13 Famotidine [Pepcid -] 20 mg PO DAILY 07/03/13 Montelukast Na [Singulair -] 10 mg PO HS #0 tablet 07/07/13 Sennosides/Docusate Sodium [Pericolace -] 2 each PO HS #0 tablet 07/07/13 Lipitor 10 mg PO HS 12/17/17 Torsemide [Demadex -] 10 mg PO BIDLASIX tablet 02/14/18 Albuterol Sulfate [Proair Hfa] 1 puff IH PRN PRN 02/10/19 Mometasone Furoate [Asmanex Hfa] 1 puff IH DAILY 02/10/19 Tiotropium Br/Olodaterol HCl [Stiolto Respimat Inhal [place]] 2.5 mg IH HS
[2019-11-07] MEDS: POTASSIUM CHLORIDE TABS 20 MEQ TABLET.ER (FP) PO SCH (10:51)
[2019-11-07] MEDS: TORSEMIDE 20 MG TABLET (FP) PO SCH (10:52)
[2019-11-07] MEDS: SPIRONOLACTONE 25 MG TABLET (FP) PO SCH (10:52)
--- NOTE | 2019-11-07 12:57 | PN ---
Progress Note, Physician History of Present Illness: stable no new issues - Current Medication List Current Medications: Active Medications Albuterol/Ipratropium (Duoneb -) 1 amp NEB Q6H PRN PRN Reason: SHORTNESS OF BREATH Atorvastatin Calcium (Lipitor -) 10 mg PO [facility] Last Admin: 11/06/19 22:02 Dose: 10 mg Diphenhydramine HCl (Benadryl Injection -) 25 mg IVPUSH Q6H PRN PRN Reason: FOR ITCHIGN Docusate Sodium (Colace -) 300 mg PO [facility] Last Admin: 11/06/19 22:00 Dose: 300 mg Heparin Sodium (Porcine) (Heparin -) 5,000 unit SQ TID [facility] Last Admin: 11/07/19 05:41 Dose: 5,000 unit Cefazolin Sodium 1 gm/ (Dextrose) 50 mls @ 100 mls/hr IVPB Q8H-IV [facility] Last Admin: 11/07/19 10:48 Dose: 100 mls/hr Metronidazole (Flagyl -) 500 mg PO TID [facility] Last Admin: 11/07/19 05:41 Dose: 500 mg Montelukast Sodium (Singulair -) 10 mg PO [facility] Last Admin: 11/06/19 22:02 Dose: 10 mg Potassium Chloride (K-Dur -) 20 meq PO DAILY [facility] Last Admin: 11/07/19 10:51 Dose: 20 meq Spironolactone (Aldactone -) 25 mg PO DAILY [facility] Last Admin: 11/07/19 10:52 Dose: 25 mg Torsemide (Demadex -) 20 mg PO DAILY [facility] Last Admin: 11/07/19 10:52 Dose: Not Given - Objective Vital Signs: Vital Signs Temperature 97.6 F 11/07/19 06:00 Pulse Rate 87 11/07/19 06:00 Respiratory Rate 18 11/07/19 06:00 Blood Pressure 136/70 11/07/19 06:00 O2 Sat by Pulse Oximetry (%) 96 11/06/19 21:00 Constitutional: Yes: No Distress, Calm Cardiovascular: Yes: S1, S2 Respiratory: Yes: Regular, CTA Bilaterally Gastrointestinal: Yes: Normal Bowel Sounds, Soft Musculoskeletal: Yes: Other Extremities: Yes: Erythema (improving) Neurological: Yes: Alert, Oriented Psychiatric: Yes: Alert, Oriented Labs: CBC, BMP 11/06/19 06:15 11/06/19 06:15 Assessment/Plan Problem List - Problems (1) Cellulitis Code(s): L03.90 - CELLULITIS, UNSPECIFIED Qualifiers: Site of cellulitis: extremity Site of cellulitis of extremity: lower extremity Laterality: right Qualified Code(s): L03.115 - Cellulitis of right lower limb (2) CHF (congestive heart failure), NYHA class II Code(s): I50.9 - HEART FAILURE, UNSPECIFIED Qualifiers: Congestive heart failure type: diastolic (3) Venous stasis ulcer of right lower extremity Code(s): I83.019 - VARICOSE VEINS OF RIGHT LOWER EXTREMITY W ULCER OF UNSP SITE ; L97.919 - NON-PRS CHRONIC ULC UNSP PRT OF R LOW LEG W UNSP SEVERITY (4) C. difficile colitis Code(s): A04.72 - ENTEROCOLITIS D/T CLOSTRIDIUM DIFFICILE, NOT SPCF RECUR plan continue abx for couple of days if no improvement to come lindsey elevation of the legs
[2019-11-07 15:14] VITALS: BP 132/93; PULSE 80; TEMP 98.1
== END 2019-11-07 11:55 | disposition home or self-care (01) | DRG 603 ==
LOC: JER 17:00 → JERBED 18:43 → J7W 11-05 01:57
PROVIDERS: ADMIT Internal Medicine; ATTEND Internal Medicine
DX: L03.115 Cellulitis of right lower limb (principal); I50.32 Chronic diastolic (congestive) heart failure; Z68.41 Body mass index [BMI] 40.0-44.9, adult; L97.919 Non-pressure chronic ulcer of unspecified part of right lower leg with unspecified severity; A04.72 Enterocolitis due to Clostridium difficile, not specified as recurrent; I11.0 Hypertensive heart disease with heart failure; D64.9 Anemia, unspecified; E78.5 Hyperlipidemia, unspecified; J45.909 Unspecified asthma, uncomplicated; E66.9 Obesity, unspecified; I87.8 Other specified disorders of veins
CPT/HCPCS: 36415; 71046-TC-FY; 80048; 80053; 81003; 82962; 83735; 84100; 85025; 87040; 87086; 93005; 93010; 93971-TC; 99285-25; J1644